=== PATIENT | male | born 1960 | race Caucasian/White ===

== ENCOUNTER 2016-07-03 11:06 | Emergency (ER) | payer BC ==
[2016-07-03] MEDS ORDERED: SODIUM CHLORIDE 0.9% 1,000 ML IV ONE (12:18)
--- NOTE | 2016-07-03 12:23 | ED ---
Abdominal Pain HPI - General Chief Complaint: Abdominal Pain Stated Complaint: RT FLANK PAIN Time Seen by Provider: 07/03/16 12:07 Source: patient, RN notes reviewed Mode of arrival: ambulatory Limitations: no limitations - History of Present Illness Initial Comments: Patient is a 55-year-old male since emergency room for evaluation of right flank pain. Patient states over the past few weeks been feeling increasingly tired. Patient states over the past week he began developing right-sided flank pain. Patient states she went and saw his primary care provider on Tuesday and they performed a urinalysis. Patient states they told him that he did not have a bladder infection. Patient states that he is suppose to leave for a trip tomorrow. Patient states because of the flank pain, he is afraid he has a kidney infection. Patient denies fevers or chills. Patient denies headache or dizziness. Patient denies abdominal pain. Patient denies history of renal failure or kidney infections. Patient does state he's had a history of kidney stone in the past. Patient denies any pain or burning during urination, trouble urinating or blood in urine. Patient denies nausea or vomiting. Patient denies chest pain or shortness of breath. - Related Data Home Medications Medication Instructions Recorded Confirmed Insulin Glargine,Hum.rec.anlog 34 unit SQ HS 09/08/15 07/03/16 [Lantus Solostar] Omeprazole [PriLOSEC] 20 mg PO AC-BRKFST 09/08/15 07/03/16 Pioglitazone [Actos] 30 mg PO QAM 09/08/15 07/03/16 Ibuprofen [Motrin] 800 mg PO DAILY 07/03/16 07/03/16 Liraglutide [Victoza 3-Russ] 1.8 mg SQ DAILY 07/03/16 07/03/16 Metoprolol Tartrate [Lopressor] 100 mg PO AC-BID 07/03/16 07/03/16 Previous Rx's Medication Instructions Recorded Aspirin 325 mg PO DAILY #30 tab 09/28/15 Atorvastatin [Lipitor] 40 mg PO DAILY #30 tab 09/28/15 Clopidogrel [Plavix] 75 mg PO DAILY #30 tab 09/28/15 Diltiazem Cd [Cardizem Cd] 180 mg PO DAILY #30 cap.er.24h 09/28/15 Losartan [Cozaar] 50 mg PO DAILY #30 tab 09/28/15 metFORMIN HCL [Glucophage] 1,000 mg PO AC-BID #30 tab 09/28/15 Allergies Allergy/AdvReac Type Severity Reaction Status Date / Time Poultry [[place]] Allergy Unknown Rash/Hives Verified 07/03/16 12:21 shellfish derived [Shellfish] Allergy Unknown Rash/Hives Verified 07/03/16 12:21 Review of Systems ROS Statement: Those systems with pertinent positive or pertinent negative responses have been documented in the HPI. ROS Other: All systems not noted in ROS Statement are negative. Past Medical History Past Medical History: Diabetes Mellitus, GERD/Reflux, Hyperlipidemia, Hypertension, Osteoarthritis (OA) Additional Past Medical History / Comment(s): SEE CARDIOLOGY H & P. History of Any Multi-Drug Resistant Organisms: None Reported Past Surgical History: Back Surgery, Coronary Bypass/CABG, Heart Catheterization With Stent Additional Past Surgical History / Comment(s): C-6 & C-7 FUSION. , HEART CATH WITH STENT (2006) Past Anesthesia/Blood Transfusion Reactions: No Reported Reaction Date of Last Stent Placement:: 2006 Past Psychological History: No Psychological Hx Reported Smoking Status: Former smoker Past Alcohol Use History: Occasional Additional Past Alcohol Use History / Comment(s): QUIT SMOKING 1996, SMOKED FOR 19 YEARS, 1 1/2 PPD. DRINKS APPROX 3 BEERS PER WEEK. Past Drug Use History: None Reported - Past Family History Mother Family Medical History: No Reported History General Exam - General Exam Comments Initial Comments: sitting exam room, no acute distress. Limitations: no limitations General appearance: alert, in no apparent distress Head exam: Present: atraumatic, normocephalic, normal inspection Eye exam: Present: normal appearance ENT exam: Present: normal exam Neck exam: Present: normal inspection Respiratory exam: Present: normal lung sounds bilaterally. Absent: respiratory distress Cardiovascular Exam: Present: regular rate, normal rhythm, normal heart sounds GI/Abdominal exam: Present: soft, normal bowel sounds. Absent: distended, tenderness, guarding, rebound, rigid Extremities exam: Present: normal inspection Back exam: Present: normal inspection. Absent: CVA tenderness (R), CVA tenderness (L) Neurological exam: Present: alert, oriented X3, CN II-XII intact, normal gait Psychiatric exam: Present: normal affect, normal mood Skin exam: Present: warm, dry, intact, normal color. Absent: rash Course Vital Signs 07/03/16 07/03/16 07/03/16 11:09 12:37 15:48 Temperature 98.2 F 97.2 F L 97.1 F L Pulse Rate 85 82 81 Respiratory 18 16 18 Rate Blood Pressure 188/110 177/92 161/88 O2 Sat by Pulse 98 98 Oximetry Medical Decision Making - Medical Decision Making patient is a 55-year-old male presents emergency room for evaluation of right flank pain. Patient also complaining of occasional fatigue. Laba show no abnormal findings. Cardiac enzymes within normal limits. Computed tomography scan showed no significant findings besides cyst over right kidney. Results discussed with patient. Advised patient to follow up with primary care provider for further evaluation. Patient states he understands everything that was discussed with him. Return parameters discussed. Case discussed with Dr. De La O. - Lab Data Result diagrams: 07/03/16 11:45 07/03/16 11:45 Lab Results 07/03/16 07/03/16 07/03/16 Range/Units 11:45 11:45 11:45 WBC 5.9 (3.8-10.6) k/uL RBC 4.93 (4.30-5.90) m/uL Hgb 14.4 (13.0-17.5) gm/dL Hct 42.9 (39.0-53.0) % MCV 87.1 (80.0-100.0) fL MCH 29.2 (25.0-35.0) pg MCHC 33.5 (31.0-37.0) g/dL RDW 13.7 (11.5-15.5) % Plt Count 247 (150-450) k/uL Neutrophils % 63 % Lymphocytes % 25 % Monocytes % 6 % Eosinophils % 2 % Basophils % 1 % Neutrophils # 3.7 (1.3-7.7) k/uL Lymphocytes # 1.5 (1.0-4.8) k/uL Monocytes # 0.4 (0-1.0) k/uL Eosinophils # 0.1 (0-0.7) k/uL Basophils # 0.1 (0-0.2) k/uL PT (9.0-12.0) sec INR (<1.1) APTT (22.0-30.0) sec Sodium 140 (137-145) mmol/L Potassium 4.6 (3.5-5.1) mmol/L Chloride 104 (98-107) mmol/L Carbon Dioxide 24 (22-30) mmol/L Anion Gap 12 mmol/L BUN 14 (9-20) mg/dL Creatinine 0.68 (0.66-1.25) mg/dL Est GFR (MDRD) Af Amer >60 (>60 ml/min/1.73 sqM) Est GFR (MDRD) Non-Af >60 (>60 ml/min/1.73 sqM) Glucose 124 H (74-99) mg/dL Calcium 9.8 (8.4-10.2) mg/dL Magnesium (1.6-2.3) mg/dL Total Bilirubin 1.3 (0.2-1.3) mg/dL AST 17 (17-59) U/L ALT 24 (21-72) U/L Alkaline Phosphatase 86 (38-126) U/L Total Creatine Kinase (55-170) U/L CK-MB (CK-2) (0.0-2.4) ng/mL CK-MB (CK-2) Rel Index Troponin I (0.000-0.034) ng/mL Total Protein 8.3 H (6.3-8.2) g/dL Albumin 4.5 (3.5-5.0) g/dL Urine Color Light Yellow Urine Appearance Clear (Clear) Urine pH 6.0 (5.0-8.0) Ur Specific [place] 1.004 (1.001-1.035) Urine Protein Negative (Negative) Urine Glucose (UA) Negative (Negative) Urine Ketones Negative (Negative) Urine Blood Negative (Negative) Urine Nitrite Negative (Negative) Urine Bilirubin Negative (Negative) Urine Urobilinogen <2.0 (<2.0) mg/dL Ur Leukocyte Esterase Negative (Negative) 07/03/16 07/03/16 07/03/16 Range/Units 11:45 11:45 14:40 WBC (3.8-10.6) k/uL RBC (4.30-5.90) m/uL Hgb (13.0-17.5) gm/dL Hct (39.0-53.0) % MCV (80.0-100.0) fL MCH (25.0-35.0) pg MCHC (31.0-37.0) g/dL RDW (11.5-15.5) % Plt Count (150-450) k/uL Neutrophils % % Lymphocytes % % Monocytes % % Eosinophils % % Basophils % % Neutrophils # (1.3-7.7) k/uL Lymphocytes # (1.0-4.8) k/uL Monocytes # (0-1.0) k/uL Eosinophils # (0-0.7) k/uL Basophils # (0-0.2) k/uL PT 11.3 (9.0-12.0) sec INR 1.1 (<1.1) APTT 22.6 (22.0-30.0) sec Sodium (137-145) mmol/L Potassium (3.5-5.1) mmol/L Chloride (98-107) mmol/L Carbon Dioxide (22-30) mmol/L Anion Gap mmol/L BUN (9-20) mg/dL Creatinine (0.66-1.25) mg/dL Est GFR (MDRD) Af Amer (>60 ml/min/1.73 sqM) Est GFR (MDRD) Non-Af (>60 ml/min/1.73 sqM) Glucose (74-99) mg/dL Calcium (8.4-10.2) mg/dL Magnesium 1.6 (1.6-2.3) mg/dL Total Bilirubin (0.2-1.3) mg/dL AST (17-59) U/L ALT (21-72) U/L Alkaline Phosphatase (38-126) U/L Total Creatine Kinase 71 (55-170) U/L CK-MB (CK-2) 0.9 (0.0-2.4) ng/mL CK-MB (CK-2) Rel Index 1.3 Troponin I <0.012 (0.000-0.034) ng/mL Total Protein (6.3-8.2) g/dL Albumin (3.5-5.0) g/dL Urine Color Urine Appearance (Clear) Urine pH (5.0-8.0) Ur Specific [place] (1.001-1.035) Urine Protein (Negative) Urine Glucose (UA) (Negative) Urine Ketones (Negative) Urine Blood (Negative) Urine Nitrite (Negative) Urine Bilirubin (Negative) Urine Urobilinogen (<2.0) mg/dL Ur Leukocyte Esterase (Negative) 07/03/16 18:03 ventricular rate 81 bpm, NC interval 174 ms, QRS duration 84 ms, QT/QTC 384/446 seconds - Radiology Data Radiology results: report reviewed, image reviewed Disposition Clinical Impression: Right flank pain Disposition: HOME SELF-CARE Condition: Good Instructions: Flank Pain (ED) Additional Instructions: Take Tylenol or Motrin as needed for pain. Please follow up with primary care provider in 1-2 days. If any new symptom arises or symptoms worsen, return to ER as soon as possible. Referrals: Ko Burton DO [Primary Care Provider] - 1-2 days Time of Disposition: 15:41
[2016-07-03 12:25] LABS: Appearance,Urine Clear (Clear); Bilirubin,Urine Negative (Negative); Glucose,Urine (UA) Negative (Negative); Ketones,Urine Negative (Negative); Leukocyte Esterase,Urine Negative (Negative); Nitrite,Urine Negative (Negative); Protein,Urine Negative (Negative); Specific Gravity,Urine 1.004 (1.001-1.035); UA Billing (MACRO vs. MICRO) CHEM; Urobilinogen,Urine <2.0 mg/dL (<2.0)
[2016-07-03 12:26] LABS: Basophils # (A) 0.1 k/uL (0-0.2); Basophils % (A) 1 %; CH 29.4; CHCM 33.9; Eosinophils # (A) 0.1 k/uL (0-0.7); Eosinophils % (A) 2 %; HCT 42.9 % (39.0-53.0); HDW 2.61; HGB 14.4 gm/dL (13.0-17.5); Luc # (Auto) 0.22; Luc % (Auto) 4; Lymphocytes # (A) 1.5 k/uL (1.0-4.8); Lymphocytes % (A) 25 %; MCH 29.2 pg (25.0-35.0); MCHC 33.5 g/dL (31.0-37.0); MCV 87.1 fL (80.0-100.0); Mean Platelet Volume 6.4; Monocytes # (A) 0.4 k/uL (0-1.0); Monocytes % (A) 6 %; Neutrophils # (A) 3.7 k/uL (1.3-7.7); Neutrophils % (A) 63 %; RBC 4.93 m/uL (4.30-5.90); RDW 13.7 % (11.5-15.5); WBC 5.9 k/uL (3.8-10.6); WBC (Perox) 5.32
[2016-07-03 12:38] LABS: ALT 24 U/L (21-72); AST 17 U/L (17-59); Alkaline Phosphatase 86 U/L (38-126); Anion Gap 12 mmol/L; Blood Urea Nitrogen 14 mg/dL (9-20); Calcium 9.8 mg/dL (8.4-10.2); Carbon Dioxide 24 mmol/L (22-30); Chloride 104 mmol/L (98-107); Glucose 124 mg/dL (74-99); Non-African American GFR(MDRD) >60 (>60 ml/min/1.73 sqM); Potassium 4.6 mmol/L (3.5-5.1); Sodium 140 mmol/L (137-145); Total Bilirubin 1.3 mg/dL (0.2-1.3); Total Protein 8.3 g/dL (6.3-8.2)
--- NOTE | 2016-07-03 12:45 | XR ---
EXAMINATION TYPE: XR chest 2V DATE OF EXAM: 07/03/2016 12:42 PM COMPARISON: 09/27/2015 HISTORY: Chest pain TECHNIQUE: Frontal and lateral views of the chest are obtained. FINDINGS: Heart and mediastinum are normal. There are small linear density in the left midlung. The other lung mireles are clear. There are no hilar masses. There are sternal wires. There are chest lead s. IMPRESSION: Normal heart. Minimal subsegmental atelectasis in the left midlung. Atelectasis is mostl y cleared compared to old exam.
[2016-07-03 14:29] LABS: Creatine Kinase 71 U/L (55-170)
[2016-07-03 14:41] LABS: Creatine Kinase MB 0.9 ng/mL (0.0-2.4); Troponin I <0.012 ng/mL (0.000-0.034)
[2016-07-03 15:00] LABS: INR 1.1 (<1.1); Prothrombin Time 11.3 sec (9.0-12.0)
[2016-07-03 15:07] LABS: Partial Thromboplastin Time 22.6 sec (22.0-30.0)
--- NOTE | 2016-07-03 15:26 | CT ---
EXAMINATION TYPE: CT abdomen pelvis wo con DATE OF EXAM: 07/03/2016 2:58 PM COMPARISON: 05/08/2007 HISTORY: Right side flank pain. CT DLP: 839 mGycm Automated exposure control for dose reduction was used. TECHNIQUE: Helical acquisition of images was performed from the lung bases through the pelvis. FINDINGS: There is mild subsegmental atelectasis in the lingula left upper lobe. There is no pleural effusion. Liver spleen pancreas gallbladder appear normal. Bile ducts are not dilated. There is a 3 cm low dens ity area in the anterior right kidney consistent with cortical cyst. There is a 4 mm calcification at the right renal hilum that is probably vascular. There is no definite hydronephrosis. Ureters are no t dilated. There is no retroperitoneal adenopathy. There is no ascites. Bladder distends smoothly. Th ere are a few diverticula in the colon. There is no evidence of diverticulitis. Appendix appears norm al. Abdominal aorta is atheromatous. I see no bony destructive process. IMPRESSION: ATHEROSCLEROTIC VASCULAR CALCIFICATION. NO EVIDENCE OF RENAL STONE OR OBSTRUCTION. THERE IS A RIGHT R ENAL CORTICAL CYST THAT IS INCREASED COMPARED TO OLD EXAM AND SHOULD BE CONFIRMED BY ULTRASOUND. COLO MIKE DIVERTICULOSIS WITHOUT EVIDENCE OF DIVERTICULITIS.
[2016-07-03 15:49] VITALS: BP 161/88; PULSE 81; RESP 18; TEMP 97.1
== END 2016-07-03 16:00 | disposition home or self-care (01) ==
LOC: EC 11:06
DX: R10.9 Unspecified abdominal pain (principal); R53.83 Other fatigue; I10 Essential (primary) hypertension; E11.9 Type 2 diabetes mellitus without complications; K21.9 Gastro-esophageal reflux disease without esophagitis; M19.90 Unspecified osteoarthritis, unspecified site; Z87.891 Personal history of nicotine dependence; Z79.1 Long term (current) use of non-steroidal anti-inflammatories (NSAID); Z79.4 Long term (current) use of insulin; Z79.84 Long term (current) use of oral hypoglycemic drugs; Z79.899 Other long term (current) drug therapy; Z91.013 Allergy to seafood; Z91.048 Other nonmedicinal substance allergy status
CPT/HCPCS: 36415; 71020; 74176; 80053; 81003; 82550; 82553; 83735; 84484; 85025; 85610; 85730; 93005; 96360; 99284

== ENCOUNTER 2016-11-15 08:41 | Inpatient (IN) | payer BC ==
[2016-11-15] MEDS ORDERED: SODIUM CHLORIDE 0.9% 1,000 ML IV STA ×2 (09:12→11:52)
[2016-11-15] MEDS ORDERED: ACETAMINOPHEN IV (For NPO) 1,000 MG in EMPTY BAG 1 BAG IVPB STA (09:12)
[2016-11-15] MEDS ORDERED: SODIUM CHLORIDE 0.9% 500 ML IV STA (09:12)
--- NOTE | 2016-11-15 09:12 | ED ---
General Adult HPI - General Chief complaint: Weakness Stated complaint: WEAKNESS, FEVER, HEAD INJURY/LAC FROM FALL Time Seen by Provider: 11/15/16 08:52 Source: patient, family, RN notes reviewed, old records reviewed Mode of arrival: wheelchair Limitations: no limitations - History of Present Illness Initial comments: This is a 56-year-old male the ER for evaluation of weakness and falls. Patient has not been feeling well, decreased appetite decreased eating, decreased fluid intake. Patient is noted fever with cough and congestion. But at this time patient's poor historian history is obtained from patient's was also helping - Related Data Home Medications Medication Instructions Recorded Confirmed Insulin Glargine,Hum.rec.anlog 30 unit SQ HS 09/08/15 11/15/16 [Lantus Solostar] Omeprazole [PriLOSEC] 20 mg PO AC-BRKFST 09/08/15 11/15/16 Pioglitazone [Actos] 30 mg PO DAILY 09/08/15 11/15/16 Liraglutide [Victoza 3-Russ] 1.8 mg SQ DAILY 07/03/16 11/15/16 Metoprolol Tartrate [Lopressor] 100 mg PO AC-BID 07/03/16 11/15/16 Losartan Potassium [Cozaar] 100 mg PO DAILY 11/15/16 11/15/16 cloNIDine HCL [Catapres] 0.1 mg PO BID 11/15/16 11/15/16 metFORMIN HCL [Glucophage] 500 mg PO BID 11/15/16 11/15/16 Previous Rx's Medication Instructions Recorded Aspirin 325 mg PO DAILY #30 tab 09/28/15 Atorvastatin [Lipitor] 40 mg PO DAILY #30 tab 09/28/15 Clopidogrel [Plavix] 75 mg PO DAILY #30 tab 09/28/15 Diltiazem Cd [Cardizem Cd] 180 mg PO DAILY #30 cap.er.24h 09/28/15 Allergies Allergy/AdvReac Type Severity Reaction Status Date / Time Poultry [[place]] Allergy Unknown Rash/Hives Verified 11/15/16 09:20 shellfish derived [Shellfish] Allergy Unknown Rash/Hives Verified 11/15/16 09:20 Review of Systems ROS Statement: Those systems with pertinent positive or pertinent negative responses have been documented in the HPI. ROS Other: All systems not noted in ROS Statement are negative. Past Medical History Past Medical History: Diabetes Mellitus, GERD/Reflux, Hyperlipidemia, Hypertension, Osteoarthritis (OA) Additional Past Medical History / Comment(s): SEE CARDIOLOGY H & P. History of Any Multi-Drug Resistant Organisms: None Reported Past Surgical History: Back Surgery, Coronary Bypass/CABG, Heart Catheterization With Stent Additional Past Surgical History / Comment(s): C-6 & C-7 FUSION. , HEART CATH WITH STENT (2006) Past Anesthesia/Blood Transfusion Reactions: No Reported Reaction Date of Last Stent Placement:: 2006 Past Psychological History: No Psychological Hx Reported Smoking Status: Former smoker Past Alcohol Use History: Occasional Past Drug Use History: None Reported - Past Family History Mother Family Medical History: No Reported History General Exam Limitations: altered mental status General appearance: alert, in no apparent distress Head exam: Present: normocephalic, normal inspection. Absent: atraumatic ( Laceration forehead) Eye exam: Present: normal appearance, PERRL, EOMI. Absent: scleral icterus, conjunctival injection, periorbital swelling ENT exam: Present: normal exam, mucous membranes moist Neck exam: Present: normal inspection. Absent: tenderness, meningismus, lymphadenopathy Respiratory exam: Present: normal lung sounds bilaterally. Absent: respiratory distress, wheezes, rales, rhonchi, stridor Cardiovascular Exam: Present: regular rate, normal rhythm, normal heart sounds. Absent: systolic murmur, diastolic murmur, rubs, gallop, clicks GI/Abdominal exam: Present: soft, normal bowel sounds. Absent: distended, tenderness, guarding, rebound, rigid Extremities exam: Present: normal inspection, full ROM, normal capillary refill. Absent: tenderness, pedal edema, joint swelling, calf tenderness Back exam: Present: normal inspection Neurological exam: Present: alert, oriented X3, CN II-XII intact Psychiatric exam: Present: normal affect, normal mood Skin exam: Present: warm, dry, intact, normal color. Absent: rash Course Vital Signs 11/15/16 11/15/16 11/15/16 08:42 09:50 11:43 Temperature 102.2 F H 99.5 F Pulse Rate 111 H 116 H 101 H Respiratory 18 24 20 Rate Blood Pressure 169/83 158/91 138/68 O2 Sat by Pulse 95 94 L 93 L Oximetry - Reevaluation(s) Reevaluation #1: 11/15/16 11:55 Patient is showing although no clinical improvement, his responsive is able to answer questions but is still altered EKG Findings - EKG Comments: EKG Findings:: EKG shows sinus tachycardia rate 113, FL 150, QRS 88, QTC 447 Procedures - Laceration Laceration #1 Consent Obtained: verbal consent Time Out Performed: Yes Indication: laceration Site: face Size (cm): 3 Description: linear Type of Sutures: other Technique: other (dermabond) Medical Decision Making - Medical Decision Making 56 male the ER for evaluation of altered mental state. Patient is found to fever with pneumonia, low sodium. Patient will be admitted for R replacement monitoring of hemodynamic cardiopulmonary status, breathing treatments and IV antibiotics - Lab Data Result diagrams: 11/15/16 09:00 11/15/16 09:00 Lab Results 11/15/16 11/15/16 11/15/16 Range/Units 09:00 09:00 09:00 WBC 12.4 H (3.8-10.6) k/uL RBC 4.40 (4.30-5.90) m/uL Hgb 13.2 (13.0-17.5) gm/dL Hct 39.1 (39.0-53.0) % MCV 88.7 (80.0-100.0) fL MCH 30.0 (25.0-35.0) pg MCHC 33.8 (31.0-37.0) g/dL RDW 14.2 (11.5-15.5) % Plt Count 284 (150-450) k/uL Neutrophils % 91 % Lymphocytes % 3 % Monocytes % 4 % Eosinophils % 0 % Basophils % 0 % Neutrophils # 11.3 H (1.3-7.7) k/uL Lymphocytes # 0.4 L (1.0-4.8) k/uL Monocytes # 0.5 (0-1.0) k/uL Eosinophils # 0.0 (0-0.7) k/uL Basophils # 0.0 (0-0.2) k/uL PT (9.0-12.0) sec INR (<1.2) APTT (22.0-30.0) sec Sodium 120 L* (137-145) mmol/L Potassium 3.9 (3.5-5.1) mmol/L Chloride 85 L (98-107) mmol/L Carbon Dioxide 18 L (22-30) mmol/L Anion Gap 17 mmol/L BUN 19 (9-20) mg/dL Creatinine 0.96 (0.66-1.25) mg/dL Est GFR (MDRD) Af Amer >60 (>60 ml/min/1.73 sqM) Est GFR (MDRD) Non-Af >60 (>60 ml/min/1.73 sqM) Glucose 347 H (74-99) mg/dL Plasma Lactic Acid Carter (0.7-2.0) mmol/L Calcium 8.9 (8.4-10.2) mg/dL Phosphorus 1.9 L (2.5-4.5) mg/dL Magnesium 1.8 (1.6-2.3) mg/dL Total Bilirubin 1.2 (0.2-1.3) mg/dL AST 153 H (17-59) U/L ALT 104 H (21-72) U/L Alkaline Phosphatase 129 H (38-126) U/L Total Creatine Kinase 325 H (55-170) U/L CK-MB (CK-2) 1.6 (0.0-2.4) ng/mL CK-MB (CK-2) Rel Index 0.5 Troponin I 0.180 H* (0.000-0.034) ng/mL Total Protein 6.7 (6.3-8.2) g/dL Albumin 3.5 (3.5-5.0) g/dL TSH 0.473 (0.465-4.680) mIU/L Acetaminophen ug/mL 11/15/16 11/15/16 11/15/16 Range/Units 09:00 09:00 09:00 WBC (3.8-10.6) k/uL RBC (4.30-5.90) m/uL Hgb (13.0-17.5) gm/dL Hct (39.0-53.0) % MCV (80.0-100.0) fL MCH (25.0-35.0) pg MCHC (31.0-37.0) g/dL RDW (11.5-15.5) % Plt Count (150-450) k/uL Neutrophils % % Lymphocytes % % Monocytes % % Eosinophils % % Basophils % % Neutrophils # (1.3-7.7) k/uL Lymphocytes # (1.0-4.8) k/uL Monocytes # (0-1.0) k/uL Eosinophils # (0-0.7) k/uL Basophils # (0-0.2) k/uL PT 10.5 (9.0-12.0) sec INR 1.0 (<1.2) APTT 25.9 (22.0-30.0) sec Sodium (137-145) mmol/L Potassium (3.5-5.1) mmol/L Chloride (98-107) mmol/L Carbon Dioxide (22-30) mmol/L Anion Gap mmol/L BUN (9-20) mg/dL Creatinine (0.66-1.25) mg/dL Est GFR (MDRD) Af Amer (>60 ml/min/1.73 sqM) Est GFR (MDRD) Non-Af (>60 ml/min/1.73 sqM) Glucose (74-99) mg/dL Plasma Lactic Acid Carter 2.1 H* (0.7-2.0) mmol/L Calcium (8.4-10.2) mg/dL Phosphorus (2.5-4.5) mg/dL Magnesium (1.6-2.3) mg/dL Total Bilirubin (0.2-1.3) mg/dL AST (17-59) U/L ALT (21-72) U/L Alkaline Phosphatase (38-126) U/L Total Creatine Kinase (55-170) U/L CK-MB (CK-2) (0.0-2.4) ng/mL CK-MB (CK-2) Rel Index Troponin I (0.000-0.034) ng/mL Total Protein (6.3-8.2) g/dL Albumin (3.5-5.0) g/dL TSH (0.465-4.680) mIU/L Acetaminophen <10.0 ug/mL - Radiology Data Radiology results: report reviewed (Chest x-ray positive for pneumonia, ultrasound gallbladder pending), image reviewed Disposition Clinical Impression: Fever, Hyponatremia, Dehydration, Altered mental state, Community acquired pneumonia Disposition: ADMITTED IP TO THIS [facility] Condition: Serious Referrals: Ko Burton DO [Primary Care Provider] - 1-2 days
[2016-11-15 09:28] LABS: Basophils % (A) 0 %; CH 30.6; CHCM 34.7; Eosinophils % (A) 0 %; HCT 39.1 % (39.0-53.0); HDW 2.31; HGB 13.2 gm/dL (13.0-17.5); Luc # (Auto) 0.14; Luc % (Auto) 1; Lymphocytes # (A) 0.4 k/uL (1.0-4.8); Lymphocytes % (A) 3 %; MCHC 33.8 g/dL (31.0-37.0); MCV 88.7 fL (80.0-100.0); Mean Platelet Volume 7.5; Monocytes # (A) 0.5 k/uL (0-1.0); Monocytes % (A) 4 %; Neutrophils # (A) 11.3 k/uL (1.3-7.7); Neutrophils % (A) 91 %; RDW 14.2 % (11.5-15.5); WBC 12.4 k/uL (3.8-10.6); WBC (Perox) 12.75
[2016-11-15 09:41] LABS: ALT 104 U/L (21-72); AST 153 U/L (17-59); Alkaline Phosphatase 129 U/L (38-126); Anion Gap 17 mmol/L; Blood Urea Nitrogen 19 mg/dL (9-20); Calcium 8.9 mg/dL (8.4-10.2); Carbon Dioxide 18 mmol/L (22-30); Chloride 85 mmol/L (98-107); Glucose 347 mg/dL (74-99); Magnesium 1.8 mg/dL (1.6-2.3); Non-African American GFR(MDRD) >60 (>60 ml/min/1.73 sqM); Phosphorous 1.9 mg/dL (2.5-4.5); Potassium 3.9 mmol/L (3.5-5.1); Total Bilirubin 1.2 mg/dL (0.2-1.3); Total Protein 6.7 g/dL (6.3-8.2)
[2016-11-15 09:46] LABS: Sodium 120 mmol/L (137-145)
--- NOTE | 2016-11-15 09:50 | CT ---
EXAMINATION TYPE: CT brain zaira dorman DATE OF EXAM: 11/15/2016 COMPARISON: NONE HISTORY: 56-year-old male complains of fever and dizziness with fall today. CT DLP: 2332.6 mGycm Automated exposure control for dose reduction was used. Technique: Examination of the head was done in axial plane without intravenous contrast. Coronal and sagittal reconstructions performed. CT of the cervical spine was obtained in axial plane without intravenous injection of contrast mater ial. Coronal and sagittal reformatted images were obtained from the axial views for evaluation of f ractures, spinal alignment and canal. FINDINGS: Head: There is no evidence of acute intracranial hemorrhage, acute ischemic changes, mass, mass-effect, or extra-axial fluid collection. There is no effacement of cerebral sulci or basal subarachnoid cister ns. There is no hydrocephalus. There is no midline shift. [place]obedo-white matter distinction is preserv ed. Mild age-related supratentorial volume loss and mild patchy white matter hypodensities. Paranasal sinuses and mastoid air cells are pneumatized. Orbits and globes are intact. No calvarial f racture. Cervical spine: No craniocervical junction abnormality, predental space widening, or prevertebral soft tissue swellin g. No acute fracture of the cervical spine. Alignment is maintained with postsurgical changes of C6-C7 A CDF. There is some anterior endplate spondylosis above and below the fusion and posterior osteophytic ridg ing at the level of fusion causing a mild spinal canal stenosis. Scattered uncovertebral joint and facet arthropathy causes moderate neuroforaminal narrowing on both sides at C6-C7. Incidentally, a couple borderline sized right superior mediastinal lymph nodes measure 9 mm. Sagittal and coronal reformatted images confirm above findings. COMBINED IMPRESSION: 1. No acute intracranial abnormality seen. Mild age-related atrophy and mild changes of chronic small vessel ischemic disease. 2. No acute fracture or malalignment of the cervical spine. C6-C7 ACDF with moderate spondylotic joyner ge lower cervical spine.
[2016-11-15 09:53] LABS: Partial Thromboplastin Time 25.9 sec (22.0-30.0); Prothrombin Time 10.5 sec (9.0-12.0)
--- NOTE | 2016-11-15 09:53 | XR ---
EXAMINATION TYPE: XR chest 2V DATE OF EXAM: 11/15/2016 COMPARISON: 07/03/2016 HISTORY: 56-year-old male with weakness and fever, fall today TECHNIQUE: Frontal and lateral views FINDINGS: Median sternotomy wires and post-CABG clips. The heart is upper limits of normal in size with mild in terstitial prominence which has a chronic appearance. No focal right lower lung opacity appears to be localized to the lower lobe on the lateral view. No significant pleural effusion seen. Some strandy atelectasis at the left base. IMPRESSION: New opacity suggesting right lower lobe pneumonia. Follow-up after treatment to ensure clearance.
--- NOTE | 2016-11-15 09:54 | XR ---
EXAMINATION TYPE: XR pelvis AP view DATE OF EXAM: 11/15/2016 COMPARISON: NONE HISTORY: 56-year-old male with pain after fall FINDINGS: External rotation of the hips causes some limitation in assessment of the lower femoral necks. Bilate ral CAM deformities at the superior femoral head neck junctions with mild superolateral joint space n arrowing of the hips. Phlebolith in the right hemipelvis. No displaced fracture. Pubic symphysis is i ntact and SI joints appear symmetric. IMPRESSION: 1. No acute osseous abnormality seen. 2. Mild bilateral hip osteoarthrosis.
[2016-11-15 10:10] LABS: Creatine Kinase MB 1.6 ng/mL (0.0-2.4)
[2016-11-15 10:28] LABS: Troponin I 0.18 ng/mL (0.000-0.034)
[2016-11-15] MEDS ORDERED: TOPICAL SKIN ADHESIVE 1 EACH AMP TOPICAL ONE (10:30)
[2016-11-15] MEDS ORDERED: LEVOFLOXACIN 750MG-D5W PMX 750 MG in DEXTROSE/WATER 1 150ML.BAG IVPB STA (11:29)
[2016-11-15] MEDS ORDERED: PNEUMONIA PROTOCOL UTILIZED 1 EACH MISC PO PRN (11:52)
--- NOTE | 2016-11-15 12:27 | US ---
EXAMINATION TYPE: US gallbladder DATE OF EXAM: 11/15/2016 COMPARISON: None CLINICAL HISTORY: 56-year-old male Pain. Nausea x 5 days, NPO TECHNIQUE: Multiple sonographic images of the right upper quadrant are obtained. FINDINGS: Liver Length: 17.7 cm Gallbladder Wall: 0.2 cm CHD: 0.4 cm Right Kidney: 13.4 x 6.7 x 8.1 cm Pancreas: Echogenic, tail not well seen due to overlying bowel gas Liver: Borderline enlarged and slightly echogenic. No focal lesion seen. Gallbladder: No abnormal gallbladder distention, wall thickening, pericholecystic fluid, or shadowin g calculi. Evidence for sonographic Orr's sign: neg CHD: wnl Right Kidney: Two cystic lesions seen. 1- lateral = 1.3 x 1.3 x 1.2 cm. 2- Medial = 2.6 x 2.5 x 2. 6 cm. No hydronephrosis. IMPRESSION: 1. Suspect mild underlying hepatic steatosis. Correlate with LFTs, lipid profile, and patient risk fa ctors. 2. No sonographic evidence for cholelithiasis or acute cholecystitis. 3. No biliary ductal dilatation.
[2016-11-15 14:28] LABS: Appearance,Urine Clear (Clear); Bacteria,Urine Rare /hpf; Bilirubin,Urine Negative (Negative); Glucose,Urine (UA) 4+ (Negative); Leukocyte Esterase,Urine Negative (Negative); Mucus,Urine Rare /hpf; Nitrite,Urine Negative (Negative); Particle Count 2758; Protein,Urine 2+ (Negative); RBC,Urine <1 /hpf (0-5); Specific Gravity,Urine 1.009 (1.001-1.035); Squamous Epithelial Cell,Urine <1 /hpf (0-4); UA Billing (MACRO vs. MICRO) MICRO; Urobilinogen,Urine <2.0 mg/dL (<2.0); WBC,Urine 2 /hpf (0-5)
[2016-11-15 15:02] LABS: Ketones,Urine 2+ (Negative)
[2016-11-15 21:02] LABS: Glucose,Whole Blood 231 mg/dL (75-99)
[2016-11-15] MEDS: INSULIN LISPRO (humaLOG) 300 UNIT/3 ML VIAL SQ SCH (21:20)
[2016-11-15] MEDS: INSULIN GLARGINE 100 UNIT/ML 10 ML VIAL SQ SCH (21:21)
[2016-11-15] MEDS: IPRATROPIUM-ALBUTEROL 3 ML NEB INHALATION PRN (21:21)
[2016-11-15] MEDS: cloNIDine HCL 0.1 MG TAB PO SCH (21:22)
[2016-11-15] MEDS ORDERED: HYDROcodone/APAP 5-325MG 1 EACH TAB PO PRN (21:24)
[2016-11-15] MEDS: MELATONIN 5 MG TABLET PO SCH (23:59)
[2016-11-16] MEDS: SODIUM CHLORIDE 0.9% 1,000 ML IV SCH ×4 (05:23→18:21)
[2016-11-16 06:13] LABS: Glucose,Whole Blood 184 mg/dL (75-99)
[2016-11-16] MEDS: METOPROLOL TARTRATE 50 MG TAB PO SCH ×3 (06:13→17:53)
[2016-11-16] MEDS: cloNIDine HCL 0.1 MG TAB PO SCH ×2 (06:13→20:18)
[2016-11-16] MEDS: PANTOPRAZOLE 40 MG TABLET PO SCH (06:20)
[2016-11-16] MEDS: INSULIN LISPRO (humaLOG) 300 UNIT/3 ML VIAL SQ SCH ×4 (06:21→20:14)
[2016-11-16 07:30] LABS: Basophils % (A) 0 %; CH 30.2; CHCM 33.9; Eosinophils % (A) 0 %; HCT 34.8 % (39.0-53.0); HDW 2.48; HGB 11.5 gm/dL (13.0-17.5); Luc # (Auto) 0.09; Luc % (Auto) 1; Lymphocytes # (A) 0.4 k/uL (1.0-4.8); Lymphocytes % (A) 6 %; MCH 29.7 pg (25.0-35.0); MCHC 33.1 g/dL (31.0-37.0); MCV 89.8 fL (80.0-100.0); Mean Platelet Volume 7.5; Monocytes # (A) 0.4 k/uL (0-1.0); Monocytes % (A) 5 %; Neutrophils # (A) 6.7 k/uL (1.3-7.7); Neutrophils % (A) 88 %; RBC 3.87 m/uL (4.30-5.90); RDW 14.4 % (11.5-15.5); WBC 7.6 k/uL (3.8-10.6); WBC (Perox) 7.71
[2016-11-16] MEDS ORDERED: NON-FORMULARY DRUG (Metoprolol Tartrate [Lopressor] 100 MG) PO SCH (07:30)
[2016-11-16] MEDS: IPRATROPIUM-ALBUTEROL 3 ML NEB INHALATION PRN ×4 (07:38→20:18)
[2016-11-16 07:46] LABS: Anion Gap 13 mmol/L; Blood Urea Nitrogen 11 mg/dL (9-20); Calcium 7.7 mg/dL (8.4-10.2); Carbon Dioxide 16 mmol/L (22-30); Chloride 96 mmol/L (98-107); Glucose 171 mg/dL (74-99); Non-African American GFR(MDRD) >60 (>60 ml/min/1.73 sqM); Potassium 3.2 mmol/L (3.5-5.1); Sodium 125 mmol/L (137-145)
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
[2016-11-16] MEDS: ENOXAPARIN 40 MG/0.4 ML SYRINGE SQ SCH (08:54)
[2016-11-16] MEDS: CLOPIDOGREL 75 MG TAB PO SCH (08:56)
[2016-11-16] MEDS: ATORVASTATIN 40 MG TAB PO SCH (08:56)
[2016-11-16] MEDS: DILTIAZEM CD 180 MG CAP.ER.24H PO SCH (08:56)
[2016-11-16] MEDS: metFORMIN 500 MG TAB PO SCH ×2 (08:57→20:18)
[2016-11-16] MEDS: LOSARTAN 50 MG TAB PO SCH (08:57)
[2016-11-16] MEDS: PIOGLITAZONE 30 MG TAB PO SCH (08:58)
[2016-11-16] MEDS ORDERED: NON-FORMULARY DRUG (Liraglutide [Victoza 3-Pak] 1.8 MG) SQ SCH (09:00)
--- NOTE | 2016-11-16 09:50 | XR ---
EXAMINATION TYPE: XR chest 2V DATE OF EXAM: 11/16/2016 COMPARISON: Chest x-ray from yesterday HISTORY: Dizziness and pneumonia progress study. TECHNIQUE: Frontal and lateral views of the chest are obtained. FINDINGS: Post CABG changes with mediastinal clips and sternal wires is redemonstrated. There is pers istent right basilar opacity consistent with small effusion and associated basilar atelectasis and/or infiltrate. There is patchy left basilar atelectasis and/or infiltrate. Upper lungs remain clear wi thout pneumothorax. The cardiac silhouette size is upper limits of normal currently. Anterior fusion plate lower cervical spine is noted. IMPRESSION: Persistent small right pleural effusion and associated right basilar infiltrate and/or a telectasis. More patchy left basilar atelectasis and/or infiltrate is also redemonstrated.
[2016-11-16] MEDS ORDERED: LEVOFLOXACIN 750MG-D5W PMX 750 MG in DEXTROSE/WATER 1 150ML.BAG IVPB SCH (11:00)
[2016-11-16 12:21] LABS: Glucose,Whole Blood 209 mg/dL (75-99)
[2016-11-16 12:50] LABS: ABG PH 7.51 (7.35-7.45)
[2016-11-16 12:51] LABS: ABG Base Excess -7.8 mmol/L; ABG HCO3 15 mmol/L (21-25); ABG PCO2 19 mmHg (35-45); ABG PO2 57 mmHg (83-108); ABG TCO2 15 mmol/L (19-24)
--- NOTE | 2016-11-16 13:39 | P.CNPUL ---
History of Present Illness Consult date: 11/16/16 Requesting physician: Jose Sandhu Reason for consult: dyspnea, cough, pneumonia, abnormal CXR/CT Chief complaint: Shortness of breath, fever, weakness History of present illness: This is a pleasant 56-year-old white male with history of multiple medical problems including coronary artery disease, diabetes mellitus II, GERD, hyperlipidemia, hypertension, osteoarthritis with 1 week history of high fevers , shortness of breath, cough, decreased appetite and weakness. The patient was treated by his PCP with oral amoxicillin with no improvement in his symptoms. Patient was becoming progressively weak, with continued chest congestion and fever, started experiencing falls at home. At which time he was brought in by his to the emergency department for evaluation and was subsequently admitted. Patient was initially given Levaquin which was later switched to Rocephin. Chest x-ray from 11/16/2016 show persistence right basilar infiltrate with right pleural effusion and patchy left basilar atelectasis and/ or infiltrate. On 11/15/2016 plasma lactic acid was elevated at 2.1 for which patient received 3 L of normal saline in fluid boluses. Blood cultures showed no growth after 24 hours, sputum culture was contaminated with oral paulina. Today we are asked to see the patient in consult in regards to his worsening respiratory status, tachypnea, fever of 103F and possible sepsis. Patient seen sitting up in bed, dyspneic with normal conversation, tachypneic at 28 breaths per minute, oxygen saturations of 90% on 4 L per nasal cannula. Lung sounds are coarse inspiratory crackles over left lower lobe, diminished air entry. Febrile, appears acutely ill. is at the bedside, provided much the history as the patient has difficulty speaking in full sentences. Blood gases were obtained and reviewed, pH is 7.5, pCO2 is 18.7, pO2 is 57 on 4 L of oxygen. Patient has primary respiratory alkalosis, hypoxic respiratory failure secondary to right lower lobe pneumonia. Patient will placed on 100% nonrebreather, antibiotic coverage will be switched to Zosyn, and patient will be transferred to the intensive care for further management. Blood and sputum cultures will be obtained. Will obtain CT of chest without contrast to rule out the possibility of right lower lobe empyema. Review of Systems Constitutional: Reports anorexia, Reports chills, Reports fatigue, Reports fever , Reports malaise, Reports poor appetite, Reports weakness Eyes: denies blurred vision Ears: deny: decreased hearing Ears, nose, mouth and throat: Denies headache, Denies sore throat Cardiovascular: Denies chest pain, Denies shortness of breath Respiratory: Reports congestion, Reports cough with sputum, Reports dyspnea Gastrointestinal: Denies abdominal pain, Denies diarrhea, Denies nausea, Denies vomiting Musculoskeletal: Reports frequent falls, Reports gait dysfunction, Reports muscle weakness, Denies myalgias Integumentary: Denies pruritus, Denies rash Neurological: Reports gait dysfunction, Denies numbness, Denies weakness Psychiatric: Denies anxiety, Denies depression Endocrine: Denies fatigue, Denies weight change Past Medical History Past Medical History: Coronary Artery Disease (CAD), Chest Pain / Angina, Diabetes Mellitus, GERD/Reflux, Hyperlipidemia, Hypertension, Osteoarthritis (OA ) Additional Past Medical History / Comment(s): IDDM type II History of Any Multi-Drug Resistant Organisms: None Reported Past Surgical History: Coronary Bypass/CABG, Heart Catheterization With Stent Additional Past Surgical History / Comment(s): C-6 & C-7 FUSION. , HEART CATH WITH STENTS IN RCA AND LEFT CX (2006), 08/2015 CARDIAC CATH, 09/2015 CABG-4 VESSEL , egd/colonoscopy, LYMPH NODE REMOVED FROM NECK. Past Anesthesia/Blood Transfusion Reactions: No Reported Reaction Date of Last Stent Placement:: 2006 Smoking Status: Former smoker - Past Family History Mother Family Medical History: Diabetes Mellitus Additional Family Medical History / Comment(s): MOTHER LIVED TO BE 82 YRS OLD. Father Family Medical History: CVA/TIA Additional Family Medical History / Comment(s): FATHER HAD CVA X2. HE IN A MVA. Medications and Allergies Home Medications Medication Instructions Recorded Confirmed Type Insulin Glargine,Hum.rec.anlog 30 unit SQ HS 09/08/15 11/15/16 History [Lantus Solostar] Omeprazole [PriLOSEC] 20 mg PO AC-BRKFST 09/08/15 11/15/16 History Pioglitazone [Actos] 30 mg PO DAILY 09/08/15 11/15/16 History Aspirin 325 mg PO DAILY #30 tab 09/28/15 11/15/16 Rx Atorvastatin [Lipitor] 40 mg PO DAILY #30 tab 09/28/15 11/15/16 Rx Clopidogrel [Plavix] 75 mg PO DAILY #30 tab 09/28/15 11/15/16 Rx Diltiazem Cd [Cardizem Cd] 180 mg PO DAILY #30 cap.er.24h 09/28/15 11/15/16 Rx Liraglutide [Victoza 3-Russ] 1.8 mg SQ DAILY 07/03/16 11/15/16 History Metoprolol Tartrate [Lopressor] 100 mg PO AC-BID 07/03/16 11/15/16 History Losartan Potassium [Cozaar] 100 mg PO DAILY 11/15/16 11/15/16 History cloNIDine HCL [Catapres] 0.1 mg PO BID 11/15/16 11/15/16 History metFORMIN HCL [Glucophage] 500 mg PO BID 11/15/16 11/15/16 History Allergies Allergy/AdvReac Type Severity Reaction Status Date / Time Poultry [[place]] Allergy Unknown Rash/Hives Verified 11/15/16 09:20 shellfish derived [Shellfish] Allergy Unknown Rash/Hives Verified 11/15/16 09:20 Physical Exam Vitals: Vital Signs Temp Pulse Pulse Pulse Resp BP BP 11/16/16 12:40 100.3 F H 32 H 11/16/16 12:00 98.9 F 120 H 110 H 28 H 156/88 11/16/16 11:11 115 H 11/16/16 10:59 111 H 11/16/16 08:00 99.3 F 110 H 112 H 24 11/16/16 07:50 112 H 11/16/16 07:41 110 H 11/16/16 04:00 98.0 F 109 H 18 11/16/16 00:00 97.2 F L 116 H 22 164/88 11/15/16 21:32 116 H 11/15/16 21:22 118 H 11/15/16 20:00 98.6 F 70 18 204/93 11/15/16 16:54 97.9 F 108 H 24 11/15/16 15:11 99.3 F 108 H 20 145/77 11/15/16 13:54 99 18 128/73 BP Pulse Ox 11/16/16 12:40 88 L 11/16/16 12:00 88 L 11/16/16 11:11 11/16/16 10:59 11/16/16 08:00 143/80 92 L 11/16/16 07:50 11/16/16 07:41 91 L 11/16/16 04:00 161/100 92 L 11/16/16 00:00 94 L 11/15/16 21:32 11/15/16 21:22 94 L 11/15/16 20:00 200/106 88 L 11/15/16 16:54 169/89 96 11/15/16 15:11 96 11/15/16 13:54 96 Intake and Output 11/15/16 11/16/16 11/16/16 22:59 06:59 14:59 Intake Total 024 390 3000 Output Total 600 Balance 800 -100 2270 Intake: IV 800 400 800 Sodium Chloride 0.9% 1, 800 400 800 000 ml @ 100 mls/hr IV . Q10H [facility] Rx#:[id number] Intake, IV Titration 100 Amount Levofloxacin 750Mg-D5w 100 Pmx 750 mg In Dextrose/ Water 1 150ml.bag @ 100 mls/hr IVPB ONCE STA Rx#: [id number] Oral 1470 Output: Urine 600 Other: Voiding Method Urinal Urinal # Voids 1 Weight 98.7 kg - Constitutional General appearance: average body habitus, cooperative, mild distress - EENT Eyes: anicteric sclerae, EOMI, PERRLA, dentition normal ENT: NA/AT Ears: bilateral: normal - Neck Neck: no lymphadenopathy, normal ROM Carotids: bilateral: upstroke normal Thyroid: bilateral: normal size - Respiratory Respiratory: bilateral: diminished, rales (left lower lobe) - Cardiovascular Rhythm: regular Heart sounds: normal: S1, S2 radial pulse Peripheral Pulses: bilateral: Normal dorsalis pedis Peripheral Pulses: bilateral: Normal - Gastrointestinal General gastrointestinal: no organomegaly, soft, no tenderness - Integumentary Integumentary: flushed, normal turgor - Neurologic Neurologic: CNII-XII intact - Musculoskeletal Musculoskeletal: generalized weakness - Psychiatric Psychiatric: A&O x's 3, appropriate affect, intact judgment & insight Results - Laboratory Findings CBC and BMP: 11/16/16 06:25 11/16/16 06:25 ABG ABG pH 7.51 (7.35-7.45) H 11/16/16 12:40 ABG pCO2 19 mmHg (35-45) L* 11/16/16 12:40 ABG pO2 57 mmHg (83-108) L 11/16/16 12:40 ABG O2 Saturation 93.0 % (94-97) L 11/16/16 12:40 PT/INR, D-dimer PT 10.5 sec (9.0-12.0) 11/15/16 09:00 INR 1.0 (<1.2) 11/15/16 09:00 Abnormal lab findings: Abnormal Labs 11/15/16 11/15/16 11/15/16 09:00 09:00 09:00 WBC 12.4 H RBC Hgb Hct Neutrophils # 11.3 H Lymphocytes # 0.4 L ABG pH ABG pCO2 ABG pO2 ABG HCO3 ABG Total CO2 ABG O2 Saturation Sodium 120 L* Potassium Chloride 85 L Carbon Dioxide 18 L Glucose 347 H POC Glucose (mg/dL) Osmolality Plasma Lactic Acid Carter Calcium Phosphorus 1.9 L AST 153 H ALT 104 H Alkaline Phosphatase 129 H Total Creatine Kinase 325 H Troponin I 0.180 H* Urine Protein Urine Glucose (UA) Urine Ketones Urine Blood Urine Bacteria Hyaline Casts Urine Mucus 11/15/16 11/15/16 11/15/16 09:00 13:45 20:50 WBC RBC Hgb Hct Neutrophils # Lymphocytes # ABG pH ABG pCO2 ABG pO2 ABG HCO3 ABG Total CO2 ABG O2 Saturation Sodium Potassium Chloride Carbon Dioxide Glucose POC Glucose (mg/dL) 231 H Osmolality Plasma Lactic Acid Carter 2.1 H* Calcium Phosphorus AST ALT Alkaline Phosphatase Total Creatine Kinase Troponin I Urine Protein 2+ H Urine Glucose (UA) 4+ H Urine Ketones 2+ H Urine Blood Small H Urine Bacteria Rare H Hyaline Casts 4 H Urine Mucus Rare H 11/16/16 11/16/16 11/16/16 06:11 06:25 06:25 WBC RBC 3.87 L Hgb 11.5 L Hct 34.8 L Neutrophils # Lymphocytes # 0.4 L ABG pH ABG pCO2 ABG pO2 ABG HCO3 ABG Total CO2 ABG O2 Saturation Sodium 125 L Potassium 3.2 L Chloride 96 L Carbon Dioxide 16 L Glucose 171 H POC Glucose (mg/dL) 184 H Osmolality 259 L Plasma Lactic Acid Carter Calcium 7.7 L Phosphorus AST ALT Alkaline Phosphatase Total Creatine Kinase Troponin I Urine Protein Urine Glucose (UA) Urine Ketones Urine Blood Urine Bacteria Hyaline Casts Urine Mucus 11/16/16 11/16/16 11:45 12:40 WBC RBC Hgb Hct Neutrophils # Lymphocytes # ABG pH 7.51 H ABG pCO2 19 L* ABG pO2 57 L ABG HCO3 15 L ABG Total CO2 15 L ABG O2 Saturation 93.0 L Sodium Potassium Chloride Carbon Dioxide Glucose POC Glucose (mg/dL) 209 H Osmolality Plasma Lactic Acid Carter Calcium Phosphorus AST ALT Alkaline Phosphatase Total Creatine Kinase Troponin I Urine Protein Urine Glucose (UA) Urine Ketones Urine Blood Urine Bacteria Hyaline Casts Urine Mucus - Diagnostic Findings Chest x-ray: report reviewed Assessment and Plan Plan: Assessment: #1. Right lower lobe pneumonia. #2. Sepsis due to pneumonia, fever, lactic acidosis present on admission #3. Acute hypoxic respiratory failure secondary to pneumonia #4. Rule out right lower lobe empyema #5. Hyponatremia, hypoosmolar from excessive fluid intake. #6. Severe generalized weakness, gait dysfunction and falls #7. Troponin leak likely from septic etiology #8. Diabetes mellitus type 2 #9. CAD, history of coronary artery bypass grafting #10. Hyperlipidemia #11. Essential hypertension #12. Osteoarthritis Plan: Patient will be transferred to the intensive care. Repeat blood cultures and sputum cultures will be obtained. Antibiotic coverage will be switched to Zosyn. We'll obtain CT of the chest without contrast to rule out right lung empyema. Continue DuoNeb nebulizer treatments. Monitor for signs of septic shock. Initiate the sepsis bundle. Monitor serum sodium, monitor neurologic status for signs of seizures or alteration. We'll continue to closely follow. I performed a history & physical examination of the patient and discussed their management with my nurse practitioner, Charlene Portillo. I reviewed the nurse practitioner's note and agree with the documented findings and plan of care.
[2016-11-16] MEDS ORDERED: Potassium Replacement Protocol 1 EACH MISC MISCELLANE PRN (13:48)
[2016-11-16] MEDS: ACETAMINOPHEN TAB 325 MG TAB PO PRN (13:56)
[2016-11-16 14:26] LABS: Glucose,Whole Blood 312 mg/dL (75-99)
[2016-11-16] MEDS: POTASSIUM CHLORIDE 10 MEQ, LIDOCAINE 2% INJ 10 MG in SODIUM CHLORIDE 0.9% 100 ML IV SCH ×2 (14:47→17:53)
[2016-11-16] MEDS: PIPERACILLIN-TAZOBACTAM 3.375 GM in DEXTROSE/WATER 1 50ML.BAG IVPB SCH ×2 (14:47→23:50)
--- NOTE | 2016-11-16 14:56 | P.PN ---
Progress Note - Text DATE OF SERVICE: 11/16/2016 PRESENTING COMPLAINT: Weak and tired HISTORY OF PRESENT ILLNESS: 56-year-old male presented with fever chills nausea and not much of an appetite for the previous 5 days. Diagnostic imaging revealed an infiltrate. Admitted for pneumonia. INTERVAL HISTORY: 11/16/2016: Patient lying in bed appears uncomfortable, receiving a breathing treatment being transferred to the ICU. Antibiotics continue in the form of Zosyn , chest x-ray with no improvement. Chest CT pending to rule out lung empyema. Appetite poor, last BM prior to admission currently on bedrest. REVIEW OF SYSTEMS: Done for constitutional ,cardiovascular, GI, pulmonary with relevant findings as above. CURRENT MEDICATIONS [place], DuoNeb, Lipitor, Catapres, Plavix, Cardizem, Lovenox, Lantus 30 units subcu at at bedtime, Cozaar, Glucophage, Lopressor, Protonix. PHYSICAL EXAM VITAL SIGNS: Temperature 99.3, pulse 112, respiratory rate 24, blood pressure 143/80, oxygen saturation 92% on 4 L. GENERAL APPEARANCE: Lying in bed, in distress receiving a breathing treatment. EYES: Pupils equal. Conjunctiva normal. NECK: JVD not raised. Mass not palpable. RESPIRATORY: Respiratory effort increased. Bilateral diffuse crackles to auscultation. CARDIOVASCULAR: First and second sounds normal. No edema. ABDOMEN: Soft. Liver and spleen not palpable. No tenderness. No mass palpable. PSYCHIATRY: Alert and oriented x3. Mood and affect anxious INVESTIGATIONS: Labs: White blood cell count 7.6, hemoglobin 11.5, sodium 125, potassium 3.2, BUN 11, creatinine 0.74, Accu-Cheks noted. Arterial blood gas: 7.51/19/57/15/base excess -7.8 Chest x-ray: Persistent small right pleural effusion associated right basilar infiltrate. ASSESSMENT: -Acute hypoxic respiratory failure secondary to pneumonia. -Right lower lobe pneumonia suspect gram-negative causing severe sepsis, present on admission including lactic acidosis. -Hyponatremia likely hypoosmolar from excessive fluid intake. Patient's solid intake is gone down. -Troponin leak probably from hemodynamic mismatch from sepsis not acute myocardial infarction. -Coronary artery repair history of stent and coronary artery bypass grafting. 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 -Gastroesophageal reflux disease. -Hyperlipidemia. -Essential hypertension. -Primary osteoarthritis in multiple joints bilateral. PLAN: Transfer to the ICU, continue antibiotic therapy, await results of CT of the chest, serial chest x-rays. Sepsis bundle initiated. Plan of care discussed with patient the bedside in agreement. We'll continue to monitor closely. RESERVATION CLERK statement: Patient was seen and examined by nurse practitioner Lindsey Arias and all elements of the case discussed with attending Dr. Sandhu
[2016-11-16 15:53] VITALS: BMI 29.5
--- NOTE | 2016-11-16 15:56 | CT ---
EXAMINATION TYPE: CT chest wo con DATE OF EXAM: 11/16/2016 COMPARISON: Chest x-ray earlier today HISTORY: Severe Shortness of breath, rule out empyema. CT DLP: 532.5 mGycm. Automated Exposure Control for Dose Reduction was Utilized. TECHNIQUE: CT scan of the thorax is performed without IV contrast. FINDINGS: LUNGS: Exam is suboptimal as is degraded by significant respiratory motion artifact. There is tiny le ft-sided pleural effusion or fluid collection. There is associated left basilar atelectasis and/or Li mited consolidation. There is more prominent consolidation with air bronchograms involving majority o f right lower lobe. There is sparing of right middle lobe and upper lobes. No pneumothorax is seen bi laterally. Tracheobronchial tree is patent. No significant right-sided pleural effusion or fluid yan ection is noted. MEDIASTINUM: Lack of IV contrast is noted to limit evaluation for mediastinal and especially hilar a denopathy. There are no definitive greater than 1 cm hilar or mediastinal lymph nodes. Some prominen t but subcentimeter thoracic lymph nodes are seen. No significant pericardial effusion is seen. Post CABG changes with mediastinal clips and sternal wires is present. Heart size is mildly enlarged. OTHER: There is moderate perinephric fat stranding bilaterally, nonspecific finding, and more promine nt from CT abdomen July 03, 2016. Correlate for acute renal failure. There is redemonstration stable 2 .5 cm cystic lesion upper pole level right kidney favoring simple cyst. IMPRESSION: Prominent right lower lobe consolidation with air bronchograms suggesting bronchopneumoni a. No suspicious pleural fluid collection or empyema.
[2016-11-16] MEDS ORDERED: PIPERACILLIN-TAZOBACTAM 3.375 GM in DEXTROSE/WATER 1 50ML.BAG IVPB SCH ×2 (16:00→22:00)
[2016-11-16] MEDS ORDERED: IV VANCOMYCIN PER PHARMACY 1 EACH MISC MISCELLANE PRN (16:15)
[2016-11-16 16:36] LABS: Glucose,Whole Blood 204 mg/dL (75-99)
[2016-11-16] MEDS ORDERED: VANCOMYCIN 1,750 MG in SODIUM CHLORIDE 0.9% 250 ML IVPB ONE (17:00)
[2016-11-16 17:54] LABS: Glucose,Whole Blood 224 mg/dL (75-99)
[2016-11-16 20:14] LABS: Glucose,Whole Blood 235 mg/dL (75-99)
[2016-11-16] MEDS: INSULIN GLARGINE 100 UNIT/ML 10 ML VIAL SQ SCH (20:14)
[2016-11-16 21:33] LABS: Magnesium 2.1 mg/dL (1.6-2.3); Potassium 3.1 mmol/L (3.5-5.1)
[2016-11-16 21:49] LABS: Amorphous Sediment,Urine Rare /hpf; Appearance,Urine Turbid (Clear); Bilirubin,Urine 1+ (Negative); Glucose,Urine (UA) 3+ (Negative); Ketones,Urine 1+ (Negative); Leukocyte Esterase,Urine Trace (Negative); Mucus,Urine Rare /hpf; Nitrite,Urine Negative (Negative); Particle Count 48254; Protein,Urine 2+ (Negative); RBC,Urine 107 /hpf (0-5); Specific Gravity,Urine 1.018 (1.001-1.035); Squamous Epithelial Cell,Urine 1 /hpf (0-4); UA Billing (MACRO vs. MICRO) MICRO; WBC,Urine 23 /hpf (0-5)
[2016-11-16] MEDS: POTASSIUM CHLORIDE ER 20 MEQ TAB.ER PO SCH ×2 (22:23→23:37)
[2016-11-16] MEDS: VANCOMYCIN 1,500 MG in SODIUM CHLORIDE 0.9% 250 ML IVPB SCH (23:46)
[2016-11-17] MEDS: MELATONIN 5 MG TABLET PO SCH ×2 (00:27→22:18)
--- NOTE | 2016-11-17 02:36 | PN ---
PROGRESS NOTE DATE OF SERVICE: November 16, 2016 ATTENDING NOTE: This patient seen and examined by me. I discussed with my nurse practitioner, Ms. Arias. I saw this patient this morning. Compared to last night the patient is much more short of breath. Oxygen requirement had gone up. Temperature 100.3, respiration 32, heart rate 110's. Patient was put on a non-rebreather. EXAMINATION: Breath sounds on examination, decreased breath sounds, abrasive. Respiratory rate increased. Accessory muscles are working. ASSESSMENT: Acute hypoxic respiratory failure, worsening from underlying pneumonia that is worsening. Spoke to Dr. Quezada from Pulmonary and patient will be transferred to the ICU. Discussed change of antibiotics with Dr. Quezada. He will be put on IV Zosyn and vancomycin. MMODL / IJN: [id number] /
[2016-11-17] MEDS: ACETAMINOPHEN TAB 325 MG TAB PO PRN (04:19)
[2016-11-17 04:57] LABS: Basophils % (A) 0 %; CH 29.4; CHCM 33.2; Eosinophils % (A) 0 %; HCT 33.8 % (39.0-53.0); HDW 2.59; HGB 11.3 gm/dL (13.0-17.5); Luc # (Auto) 0.14; Luc % (Auto) 2; Lymphocytes # (A) 0.6 k/uL (1.0-4.8); Lymphocytes % (A) 11 %; MCH 29.7 pg (25.0-35.0); MCHC 33.5 g/dL (31.0-37.0); MCV 88.8 fL (80.0-100.0); Monocytes # (A) 0.3 k/uL (0-1.0); Monocytes % (A) 5 %; Neutrophils # (A) 4.7 k/uL (1.3-7.7); Neutrophils % (A) 81 %; RBC 3.81 m/uL (4.30-5.90); RDW 14.1 % (11.5-15.5); WBC 5.8 k/uL (3.8-10.6); WBC (Perox) 6.14
[2016-11-17 05:07] LABS: Anion Gap 11 mmol/L; Blood Urea Nitrogen 12 mg/dL (9-20); Calcium 7.7 mg/dL (8.4-10.2); Carbon Dioxide 18 mmol/L (22-30); Chloride 98 mmol/L (98-107); Glucose 175 mg/dL (74-99); Magnesium 1.9 mg/dL (1.6-2.3); Non-African American GFR(MDRD) >60 (>60 ml/min/1.73 sqM); Phosphorous 1.5 mg/dL (2.5-4.5); Potassium 3.4 mmol/L (3.5-5.1); Sodium 127 mmol/L (137-145)
[2016-11-17] MEDS: VANCOMYCIN 1,500 MG in SODIUM CHLORIDE 0.9% 250 ML IVPB SCH ×3 (06:10→22:59)
[2016-11-17] MEDS: SODIUM CHLORIDE 0.9% 1,000 ML IV SCH ×2 (06:13→13:40)
[2016-11-17] MEDS: POTASSIUM CHLORIDE ER 20 MEQ TAB.ER PO SCH ×4 (06:28→22:18)
[2016-11-17] MEDS: MAGNESIUM SULFATE-D5W PMX 1 GM in DEXTROSE/WATER 1 100ML.BAG IVPB SCH ×2 (06:28→07:53)
[2016-11-17] MEDS: SODIUM PHOSPHATE 10 MMOL in SODIUM CHLORIDE 0.9% 250 ML IVPB SCH ×2 (07:08→08:12)
[2016-11-17] MEDS: INSULIN LISPRO (humaLOG) 300 UNIT/3 ML VIAL SQ SCH ×4 (07:47→22:27)
[2016-11-17 07:49] LABS: Glucose,Whole Blood 147 mg/dL (75-99)
[2016-11-17] MEDS: ENOXAPARIN 40 MG/0.4 ML SYRINGE SQ SCH (08:05)
[2016-11-17] MEDS: CLOPIDOGREL 75 MG TAB PO SCH (08:05)
[2016-11-17] MEDS: METOPROLOL TARTRATE 50 MG TAB PO SCH ×2 (08:05→16:38)
[2016-11-17] MEDS: PANTOPRAZOLE 40 MG TABLET PO SCH (08:05)
[2016-11-17] MEDS: ATORVASTATIN 40 MG TAB PO SCH (08:05)
[2016-11-17] MEDS: LOSARTAN 50 MG TAB PO SCH (08:06)
[2016-11-17] MEDS: DILTIAZEM CD 180 MG CAP.ER.24H PO SCH (08:06)
[2016-11-17] MEDS: cloNIDine HCL 0.1 MG TAB PO SCH ×2 (08:06→19:54)
[2016-11-17] MEDS: metFORMIN 500 MG TAB PO SCH ×2 (08:06→19:54)
--- NOTE | 2016-11-17 08:13 | XR ---
EXAMINATION TYPE: XR chest 1V portable DATE OF EXAM: 11/17/2016 HISTORY: Shortness of breath. COMPARISON: 11/16/2016 TECHNIQUE: Single view of the chest is submitted. FINDINGS: Demonstrated are scattered senescent parenchymal change. Patchy density right medial lung base is essentially unchanged. The heart is stable. Hilar and mediastinal structures are within normal limits. Degenerative changes are seen of the dorsal spine. IMPRESSION: 1. Patchy density right medial lung base is essentially unchanged.
[2016-11-17] MEDS: PIPERACILLIN-TAZOBACTAM 3.375 GM in DEXTROSE/WATER 1 50ML.BAG IVPB SCH ×2 (08:15→15:28)
[2016-11-17] MEDS: PIOGLITAZONE 30 MG TAB PO SCH (10:30)
[2016-11-17 11:24] LABS: Glucose,Whole Blood 190 mg/dL (75-99)
--- NOTE | 2016-11-17 13:42 | P.PN ---
Subjective Principal diagnosis: Acute community-acquired the right lower lobe pneumonia and sepsis This is a pleasant 56-year-old white male with history of multiple medical problems including coronary artery disease, diabetes mellitus II, GERD, hyperlipidemia, hypertension, osteoarthritis with 1 week history of high fevers , shortness of breath, cough, decreased appetite and weakness. The patient was treated by his PCP with oral amoxicillin with no improvement in his symptoms. Patient was becoming progressively weak, with continued chest congestion and fever, started experiencing falls at home. At which time he was brought in by his to the emergency department for evaluation and was subsequently admitted. Patient was initially given Levaquin which was later switched to Rocephin. Chest x-ray from 11/16/2016 show persistence right basilar infiltrate with right pleural effusion and patchy left basilar atelectasis and/ or infiltrate. On 11/15/2016 plasma lactic acid was elevated at 2.1 for which patient received 3 L of normal saline in fluid boluses. Blood cultures showed no growth after 24 hours, sputum culture was contaminated with oral paulina. Today we are asked to see the patient in consult in regards to his worsening respiratory status, tachypnea, fever of 103F and possible sepsis. Patient seen sitting up in bed, dyspneic with normal conversation, tachypneic at 28 breaths per minute, oxygen saturations of 90% on 4 L per nasal cannula. Lung sounds are coarse inspiratory crackles over left lower lobe, diminished air entry. Febrile, appears acutely ill. is at the bedside, provided much the history as the patient has difficulty speaking in full sentences. Blood gases were obtained and reviewed, pH is 7.5, pCO2 is 18.7, pO2 is 57 on 4 L of oxygen. Patient has primary respiratory alkalosis, hypoxic respiratory failure secondary to right lower lobe pneumonia. Patient will placed on 100% nonrebreather, antibiotic coverage will be switched to Zosyn, and patient will be transferred to the intensive care for further management. Blood and sputum cultures will be obtained. Will obtain CT of chest without contrast to rule out the possibility of right lower lobe empyema. Reevaluated today on 11/17/2016, patient seems to be doing significantly better compared to how he was yesterday. Less shortness of breath, no fever, no chills , no wheezing. CT of the chest failed to show any empyema, however there was a significant consolidation and air bronchogram noted in the right lower lobe consistent with pneumonia. Labs today were all reviewed he has WBC count of 5.8 hemoglobin is 11.3. Sodium is 127 potassium of 3.4 being corrected as per protocol. Cultures so far are nondiagnostic, and negative including blood and urine and sputum. Clinically however there has been a dramatic improvement noted. Patient seems to be comfortable, he is presently on 3 L nasal cannula. Objective - Vital Signs Vital signs: Vital Signs Temp 98.1 F 11/17/16 08:00 Pulse 93 11/17/16 11:00 Resp 30 H 11/17/16 11:08 BP 168/91 11/17/16 11:00 Pulse Ox 99 11/17/16 11:00 Intake & Output 11/16/16 11/17/16 11/17/16 18:59 06:59 18:59 Intake Total 2920 1350 1525.0 Output Total 1999 1435 1225 Balance 920 -85 300.0 Weight 98.7 kg 98.7 kg Intake: IV 1000 450 150.0 Piperacillin-Tazobactam 3 50.0 .375 gm In Dextrose/Water 1 50ml.bag @ 12.5 mls/hr IVPB Q8HR [facility] Rx#: [id number] Sodium Chloride 0.9% 1, 1000 450 100 000 ml @ 100 mls/hr IV . Q10H [facility] Rx#:[id number] Intake, IV Titration 900 375.0 Amount Magnesium Sulfate-D5w Pmx 100 100 1 gm In Dextrose/Water 1 100ml.bag @ 100 mls/hr IVPB Q1H [facility] Rx#: [id number] Piperacillin-Tazobactam 3 50 25.0 .375 gm In Dextrose/Water 1 50ml.bag @ 12.5 mls/hr IVPB Q8HR [facility] Rx#: [id number] Sodium Phosphate 10 mmol 250 250 In Sodium Chloride 0.9% 250 ml @ 125 mls/hr IVPB Q2H [facility] Rx#:[id number] Vancomycin 1,500 mg In 500 Sodium Chloride 0.9% 250 ml @ 125 mls/hr IVPB Q8HR @0600,1400,2200 [facility] Rx#: [id number] Oral 1920 1000 Output: Urine 1999 1435 1225 Other: Voiding Method Urinal Indwelling Catheter Indwelling Catheter - Exam - Constitutional General appearance: average body habitus, cooperative, in no form of respiratory distress. - EENT Eyes: anicteric sclerae, EOMI, PERRLA, dentition normal ENT: NA/AT Ears: bilateral: normal - Neck Neck: no lymphadenopathy, normal ROM Carotids: bilateral: upstroke normal Thyroid: bilateral: normal size - Respiratory Respiratory: Clear breath sound bilaterally, no crackles, no rhonchi, no wheezes. Symmetrical expansion was noted, no chest wall tenderness noted. No pleural rubs - Cardiovascular Rhythm: regular Heart sounds: normal: S1, S2 radial pulse Peripheral Pulses: bilateral: Normal dorsalis pedis Peripheral Pulses: bilateral: Normal - Gastrointestinal General gastrointestinal: no organomegaly, soft, no tenderness - Integumentary Integumentary: flushed, normal turgor - Neurologic Neurologic: CNII-XII intact - Musculoskeletal Musculoskeletal: generalized weakness - Psychiatric Psychiatric: A&O x's 3, appropriate affect, intact judgment & insight - Labs CBC & Chem 7: 11/17/16 04:10 11/17/16 04:10 Labs: Abnormal Lab Results - Last 24 Hours (Table) 11/16/16 11/16/16 11/16/16 Range/Units 14:18 16:33 17:52 RBC (4.30-5.90) m/uL Hgb (13.0-17.5) gm/dL Hct (39.0-53.0) % Lymphocytes # (1.0-4.8) k/uL Sodium (137-145) mmol/L Potassium (3.5-5.1) mmol/L Carbon Dioxide (22-30) mmol/L Glucose (74-99) mg/dL POC Glucose (mg/dL) 312 H 204 H 224 H (75-99) mg/dL Calcium (8.4-10.2) mg/dL Phosphorus (2.5-4.5) mg/dL Urine Protein (Negative) Urine Glucose (UA) (Negative) Urine Ketones (Negative) Urine Blood (Negative) Urine Bilirubin (Negative) Ur Leukocyte Esterase (Negative) Urine RBC (0-5) /hpf Urine WBC (0-5) /hpf Amorphous Sediment (None) /hpf Urine Mucus (None) /hpf 11/16/16 11/16/16 11/16/16 Range/Units 20:13 20:59 21:08 RBC (4.30-5.90) m/uL Hgb (13.0-17.5) gm/dL Hct (39.0-53.0) % Lymphocytes # (1.0-4.8) k/uL Sodium (137-145) mmol/L Potassium 3.1 L (3.5-5.1) mmol/L Carbon Dioxide (22-30) mmol/L Glucose (74-99) mg/dL POC Glucose (mg/dL) 235 H (75-99) mg/dL Calcium (8.4-10.2) mg/dL Phosphorus (2.5-4.5) mg/dL Urine Protein 2+ H (Negative) Urine Glucose (UA) 3+ H (Negative) Urine Ketones 1+ H (Negative) Urine Blood Large H (Negative) Urine Bilirubin 1+ H (Negative) Ur Leukocyte Esterase Trace H (Negative) Urine RBC 107 H (0-5) /hpf Urine WBC 23 H (0-5) /hpf Amorphous Sediment Rare H (None) /hpf Urine Mucus Rare H (None) /hpf 11/17/16 11/17/16 11/17/16 Range/Units 04:10 04:10 07:46 RBC 3.81 L (4.30-5.90) m/uL Hgb 11.3 L (13.0-17.5) gm/dL Hct 33.8 L (39.0-53.0) % Lymphocytes # 0.6 L (1.0-4.8) k/uL Sodium 127 L (137-145) mmol/L Potassium 3.4 L (3.5-5.1) mmol/L Carbon Dioxide 18 L (22-30) mmol/L Glucose 175 H (74-99) mg/dL POC Glucose (mg/dL) 147 H (75-99) mg/dL Calcium 7.7 L (8.4-10.2) mg/dL Phosphorus 1.5 L (2.5-4.5) mg/dL Urine Protein (Negative) Urine Glucose (UA) (Negative) Urine Ketones (Negative) Urine Blood (Negative) Urine Bilirubin (Negative) Ur Leukocyte Esterase (Negative) Urine RBC (0-5) /hpf Urine WBC (0-5) /hpf Amorphous Sediment (None) /hpf Urine Mucus (None) /hpf 11/17/16 Range/Units 11:21 RBC (4.30-5.90) m/uL Hgb (13.0-17.5) gm/dL Hct (39.0-53.0) % Lymphocytes # (1.0-4.8) k/uL Sodium (137-145) mmol/L Potassium (3.5-5.1) mmol/L Carbon Dioxide (22-30) mmol/L Glucose (74-99) mg/dL POC Glucose (mg/dL) 190 H (75-99) mg/dL Calcium (8.4-10.2) mg/dL Phosphorus (2.5-4.5) mg/dL Urine Protein (Negative) Urine Glucose (UA) (Negative) Urine Ketones (Negative) Urine Blood (Negative) Urine Bilirubin (Negative) Ur Leukocyte Esterase (Negative) Urine RBC (0-5) /hpf Urine WBC (0-5) /hpf Amorphous Sediment (None) /hpf Urine Mucus (None) /hpf Microbiology - Last 24 Hours (Table) 11/15/16 09:00 Blood Culture - Preliminary Blood No Growth after 48 hours 11/15/16 13:45 Urine Culture - Final Urine,Voided 11/15/16 13:24 Blood Culture - Preliminary Blood No Growth after 24 hours 11/16/16 11:00 Gram Stain - Final Sputum Sputum Culture - Final Assessment and Plan Plan: #1. Acute community-acquired right lower lobe pneumonia. #2. Acute sepsis due to pneumonia, fever, lactic acidosis present on admission #3. Acute hypoxic respiratory failure secondary to right lower lobe pneumonia #4. Rule out right lower lobe empyema, this was ruled out based on the CT of the chest done yesterday. #5. Hyponatremia, secondary to hypovolemic state. Possible SIADH is not entirely ruled out related to pneumonia. #6. Severe generalized weakness, gait dysfunction and falls #7. Troponin leak likely from septic etiology #8. Diabetes mellitus type 2 #9. CAD, history of coronary artery bypass grafting #10. Hyperlipidemia #11. Essential hypertension #12. Osteoarthritis Recommendation: Continue present course of antibiotics, continue bronchodilators , continue GI and DVT prophylaxis, considering the patient made a significant improvement over the last 24 hours, I plan to move him out of the ICU to a regular medical floor today. We'll continue to follow. Time with Patient: Less than 30
--- NOTE | 2016-11-17 15:31 | P.PN ---
Progress Note - Text DATE OF SERVICE: 11/17/2016 PRESENTING COMPLAINT: Weak and tired HISTORY OF PRESENT ILLNESS: 56-year-old male presented with fever chills nausea and not much of an appetite for the previous 5 days. Diagnostic imaging revealed an infiltrate. Admitted for pneumonia. INTERVAL HISTORY: 11/17/2016: Patient lying in bed appears much more comfortable, breathing easier, no fever no chills no wheezing. Antibiotics continued in the form of Zosyn and vancomycin. Chest x-ray shows no change, chest CT revealed significant consolidation with air bronchograms suggesting bronchopneumonia. Has been hypertensive medications being adjusted. Appetite poor, ate about 20% of his meals, last BM 11/17/2016. Overall condition stabilized enough where patient is appropriate to transfer back to a medical floor. 11/16/2016: Patient lying in bed appears uncomfortable, receiving a breathing treatment being transferred to the ICU. Antibiotics continue in the form of Zosyn , chest x-ray with no improvement. Chest CT pending to rule out lung empyema. Appetite poor, last BM prior to admission currently on bedrest. REVIEW OF SYSTEMS: Done for constitutional ,cardiovascular, GI, pulmonary with relevant findings as above. CURRENT MEDICATIONS [place], DuoNeb, Lipitor, Catapres, Plavix, Cardizem, Cozaar Lovenox, Lantus 30 units subcu at at bedtime, Cozaar, Glucophage, Lopressor, Protonix. PHYSICAL EXAM VITAL SIGNS: Temp temperature 98.1, respiratory rate 23, pulse 89, blood pressure 177/100. Oxygen saturation 100% on 2 L. GENERAL APPEARANCE: Lying in bed, appears comfortable. EYES: Pupils equal. Conjunctiva normal. NECK: JVD not raised. Mass not palpable. RESPIRATORY: Respiratory effort increased. Bilateral diffuse crackles to auscultation. CARDIOVASCULAR: First and second sounds normal. No edema. ABDOMEN: Soft. Liver and spleen not palpable. No tenderness. No mass palpable. PSYCHIATRY: Alert and oriented x3. Mood and affect anxious INVESTIGATIONS: Labs: Hemoglobin 11.3, sodium 127, potassium 3.4, Chest x-ray: Patchy density right medial lung base essentially unchanged. ASSESSMENT: -Acute hypoxic respiratory failure secondary to pneumonia, improving -Right lower lobe pneumonia suspect gram-negative causing severe sepsis, present on admission including lactic acidosis. -Hyponatremia likely hypoosmolar from excessive fluid intake. Patient's solid intake is gone down. -Troponin leak probably from hemodynamic mismatch from sepsis not acute myocardial infarction. -Coronary artery repair history of stent and coronary artery bypass grafting. 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 -Gastroesophageal reflux disease. -Hyperlipidemia. -Essential hypertension. -Primary osteoarthritis in multiple joints bilateral. PLAN: We'll continue with current course of antibiotics bronchodilators. Patient is made significant improvement over the last 24 hours as he will be transferred from the ICU to regular medical floor later today. Plan of care discussed with patient the bedside questions answered. We'll continue to follow closely. [facility] statement: Patient was seen and examined by nurse practitioner Lindsey Arias and all elements of the case discussed with attending Dr. Sandhu
[2016-11-17 17:23] LABS: Glucose,Whole Blood 192 mg/dL (75-99)
[2016-11-17] MEDS ORDERED: Potassium Replacement Protocol 1 EACH MISC MISCELLANE PRN (17:41)
--- NOTE | 2016-11-17 19:36 | PN ---
PROGRESS NOTE DATE OF SERVICE: 11/17/2016 ATTENDING NOTE: This patient was examined by me and discussed with my nurse practitioner, Ms. Arias. Patient admitted with severe pneumonia with sepsis and acute hypoxic respiratory failure. The patient was mobilized yesterday and this morning doing actually better, down to 4L of nasal cannula. Ate a little bit, sitting up. EXAMINATION: Afebrile. LUNGS: Decreased breath sounds. No expiratory wheezing. INVESTIGATIONS: White count 5.8, hemoglobin 11.3. Sodium 127. Cultures are negative. Chest x-ray from this morning shows patchy density right middle lung, unchanged. Chest CT scan shows prominent right lower lobe consolidated . ASSESSMENT: 1. Acute severe right lower lobe pneumonia, suspect gram-negative organism causing severe sepsis on presentation. 2. Acute hypoxic respiratory failure now with some clinical improvement. PLAN: Patient can be moved out of ICU. Patient remains on IV vancomycin, IV Zosyn. Care was discussed with the patient. ATA / KAMARN: [id number] /
[2016-11-17] MEDS: IPRATROPIUM-ALBUTEROL 3 ML NEB INHALATION PRN (20:30)
[2016-11-17] MEDS: INSULIN GLARGINE 100 UNIT/ML 10 ML VIAL SQ SCH (22:22)
[2016-11-17 22:28] LABS: Glucose,Whole Blood 158 mg/dL (75-99)
[2016-11-18] MEDS: PIPERACILLIN-TAZOBACTAM 3.375 GM in DEXTROSE/WATER 1 50ML.BAG IVPB SCH ×3 (00:03→17:06)
[2016-11-18] MEDS: SODIUM CHLORIDE 0.9% 1,000 ML IV SCH ×2 (03:37→13:21)
[2016-11-18 04:30] LABS: Basophils # (A) 0.1 k/uL (0-0.2); Basophils % (A) 1 %; CH 30.3; CHCM 34.2; Eosinophils # (A) 0.1 k/uL (0-0.7); Eosinophils % (A) 1 %; HCT 34.2 % (39.0-53.0); HDW 2.68; HGB 11.2 gm/dL (13.0-17.5); Luc # (Auto) 0.18; Luc % (Auto) 3; Lymphocytes # (A) 0.5 k/uL (1.0-4.8); Lymphocytes % (A) 8 %; MCH 29.1 pg (25.0-35.0); MCHC 32.6 g/dL (31.0-37.0); MCV 89.2 fL (80.0-100.0); Mean Platelet Volume 7.4; Monocytes # (A) 0.3 k/uL (0-1.0); Monocytes % (A) 5 %; Neutrophils # (A) 4.6 k/uL (1.3-7.7); Neutrophils % (A) 81 %; RBC 3.84 m/uL (4.30-5.90); RDW 14.9 % (11.5-15.5); WBC 5.6 k/uL (3.8-10.6); WBC (Perox) 6.01
[2016-11-18 04:40] LABS: Anion Gap 12 mmol/L; Blood Urea Nitrogen 10 mg/dL (9-20); Calcium 7.6 mg/dL (8.4-10.2); Carbon Dioxide 17 mmol/L (22-30); Chloride 103 mmol/L (98-107); Glucose 199 mg/dL (74-99); Non-African American GFR(MDRD) >60 (>60 ml/min/1.73 sqM); Phosphorous 1.6 mg/dL (2.5-4.5); Potassium 3.4 mmol/L (3.5-5.1); Sodium 132 mmol/L (137-145)
[2016-11-18] MEDS ORDERED: VANCOMYCIN TROUGH DUE 1 EACH MISC MISCELLANE ONE (05:00)
[2016-11-18] MEDS: VANCOMYCIN 1,500 MG in SODIUM CHLORIDE 0.9% 250 ML IVPB SCH (06:05)
[2016-11-18 07:31] LABS: Glucose,Whole Blood 154 mg/dL (75-99)
[2016-11-18] MEDS: METOPROLOL TARTRATE 50 MG TAB PO SCH ×2 (07:56→19:08)
[2016-11-18] MEDS: PANTOPRAZOLE 40 MG TABLET PO SCH (07:56)
[2016-11-18] MEDS: INSULIN LISPRO (humaLOG) 300 UNIT/3 ML VIAL SQ SCH ×4 (08:14→21:36)
--- NOTE | 2016-11-18 09:14 | XR ---
EXAMINATION TYPE: XR chest 1V portable DATE OF EXAM: 11/18/2016 COMPARISON: 11/17/2016 HISTORY: Shortness of breath TECHNIQUE: Single frontal view of the chest is obtained. FINDINGS: Right infrahilar and right basilar opacities is increasing in comparison to the prior exam . Somewhat low lung volumes may accentuate this finding. Median sternotomy wires, mediastinal clips, and cervical fusion device are noted. Remainder the lungs appear clear. Cardiac silhouette is again mildly enlarged. Osseous structures appear intact. IMPRESSION: Worsening right lower lobe pneumonia.
[2016-11-18] MEDS: cloNIDine HCL 0.1 MG TAB PO SCH ×2 (10:15→21:36)
[2016-11-18] MEDS: ATORVASTATIN 40 MG TAB PO SCH (10:15)
[2016-11-18] MEDS: ENOXAPARIN 40 MG/0.4 ML SYRINGE SQ SCH (10:16)
[2016-11-18] MEDS: DILTIAZEM CD 180 MG CAP.ER.24H PO SCH (10:16)
[2016-11-18] MEDS: LOSARTAN 50 MG TAB PO SCH (10:16)
[2016-11-18] MEDS: CLOPIDOGREL 75 MG TAB PO SCH (10:16)
[2016-11-18] MEDS: metFORMIN 500 MG TAB PO SCH ×2 (10:17→21:37)
[2016-11-18] MEDS: PIOGLITAZONE 30 MG TAB PO SCH (10:17)
[2016-11-18 11:42] LABS: Glucose,Whole Blood 248 mg/dL (75-99)
[2016-11-18] MEDS ORDERED: Potassium Replacement Protocol 1 EACH MISC MISCELLANE PRN (12:04)
--- NOTE | 2016-11-18 12:05 | P.PN ---
Subjective Principal diagnosis: acute community-acquired pneumonia, right upper lobe and sepsis This is a pleasant 56-year-old white male with history of multiple medical problems including coronary artery disease, diabetes mellitus II, GERD, hyperlipidemia, hypertension, osteoarthritis with 1 week history of high fevers , shortness of breath, cough, decreased appetite and weakness. The patient was treated by his PCP with oral amoxicillin with no improvement in his symptoms. Patient was becoming progressively weak, with continued chest congestion and fever, started experiencing falls at home. At which time he was brought in by his to the emergency department for evaluation and was subsequently admitted. Patient was initially given Levaquin which was later switched to Rocephin. Chest x-ray from 11/16/2016 show persistence right basilar infiltrate with right pleural effusion and patchy left basilar atelectasis and/ or infiltrate. On 11/15/2016 plasma lactic acid was elevated at 2.1 for which patient received 3 L of normal saline in fluid boluses. Blood cultures showed no growth after 24 hours, sputum culture was contaminated with oral paulina. Today we are asked to see the patient in consult in regards to his worsening respiratory status, tachypnea, fever of 103F and possible sepsis. Patient seen sitting up in bed, dyspneic with normal conversation, tachypneic at 28 breaths per minute, oxygen saturations of 90% on 4 L per nasal cannula. Lung sounds are coarse inspiratory crackles over left lower lobe, diminished air entry. Febrile, appears acutely ill. is at the bedside, provided much the history as the patient has difficulty speaking in full sentences. Blood gases were obtained and reviewed, pH is 7.5, pCO2 is 18.7, pO2 is 57 on 4 L of oxygen. Patient has primary respiratory alkalosis, hypoxic respiratory failure secondary to right lower lobe pneumonia. Patient will placed on 100% nonrebreather, antibiotic coverage will be switched to Zosyn, and patient will be transferred to the intensive care for further management. Blood and sputum cultures will be obtained. Will obtain CT of chest without contrast to rule out the possibility of right lower lobe empyema. Reevaluated today on 11/17/2016, patient seems to be doing significantly better compared to how he was yesterday. Less shortness of breath, no fever, no chills , no wheezing. CT of the chest failed to show any empyema, however there was a significant consolidation and air bronchogram noted in the right lower lobe consistent with pneumonia. Labs today were all reviewed he has WBC count of 5.8 hemoglobin is 11.3. Sodium is 127 potassium of 3.4 being corrected as per protocol. Cultures so far are nondiagnostic, and negative including blood and urine and sputum. Clinically however there has been a dramatic improvement noted. Patient seems to be comfortable, he is presently on 3 L nasal cannula. On 11/18/2016 the patient is seen in follow-up, continues to improve. Denies chest congestion, wheezing, or significant sputum production. No febrile episodes noted. Hemodynamically stable. His main complaint today is lack of energy. Lung sounds are clear. Diminished at the bases. No rhonchi, no rales , no wheezing. Continues on 4 L oxygen per nasal cannula with oxygen saturations around 91-95%. Cultures have been reviewed and are negative so far. Patient continues on vancomycin and Zosyn for antibiotic coverage. On DuoNeb nebulizers treatments. Increase activity as tolerated. Objective - Vital Signs Vital signs: Vital Signs Temp 96.9 F L 11/18/16 07:51 Pulse 96 11/18/16 08:00 Resp 20 11/18/16 08:45 BP 172/90 11/18/16 07:51 Pulse Ox 91 L 11/17/16 22:19 Intake & Output 11/17/16 11/18/16 11/18/16 18:59 06:59 18:59 Intake Total 1537.5 590 Output Total 1625 Balance -87.5 590 Intake: IV 162.5 Piperacillin-Tazobactam 3 62.5 .375 gm In Dextrose/Water 1 50ml.bag @ 12.5 mls/hr IVPB Q8HR [facility] Rx#: [id number] Sodium Chloride 0.9% 1, 100 000 ml @ 100 mls/hr IV . Q10H [facility] Rx#:[id number] Intake, IV Titration 375.0 Amount Magnesium Sulfate-D5w Pmx 100 1 gm In Dextrose/Water 1 100ml.bag @ 100 mls/hr IVPB Q1H [facility] Rx#: [id number] Piperacillin-Tazobactam 3 25.0 .375 gm In Dextrose/Water 1 50ml.bag @ 12.5 mls/hr IVPB Q8HR [facility] Rx#: [id number] Sodium Phosphate 10 mmol 250 In Sodium Chloride 0.9% 250 ml @ 125 mls/hr IVPB Q2H [facility] Rx#:[id number] Oral 1000 590 Output: Urine 1625 Other: Voiding Method Indwelling Catheter Toilet # Voids 1 2 # Bowel Movements 1 1 - Exam GENERAL EXAM: Alert, active, comfortable in no apparent distress, appears fatigued HEAD: Normocephalic. EYES: Normal reaction of pupils, equal size. NOSE: Clear with pink turbinates. THROAT: No erythema or exudates. NECK: No masses, no JVD. CHEST: No chest wall deformity. LUNGS: Equal air entry with no crackles, wheeze, rhonchi or dullness. CVS: S1 and S2 normal with no audible mumurs, regular rhythm. ABDOMEN: No hepatosplenomegaly, normal bowel sounds, no guarding or rigidity. SPINE: No scoliosis or deformity SKIN: No rashes CENTRAL NERVOUS SYSTEM: No focal deficits, tone is normal in all 4 extremities. - Labs CBC & Chem 7: 11/18/16 03:54 11/18/16 03:54 Labs: Abnormal Lab Results - Last 24 Hours (Table) 11/17/16 11/17/16 11/17/16 Range/Units 16:06 17:21 22:27 RBC (4.30-5.90) m/uL Hgb (13.0-17.5) gm/dL Hct (39.0-53.0) % Lymphocytes # (1.0-4.8) k/uL Sodium (137-145) mmol/L Potassium 3.4 L (3.5-5.1) mmol/L Carbon Dioxide (22-30) mmol/L Glucose (74-99) mg/dL POC Glucose (mg/dL) 192 H 158 H (75-99) mg/dL Calcium (8.4-10.2) mg/dL Phosphorus (2.5-4.5) mg/dL 11/18/16 11/18/16 11/18/16 Range/Units 03:54 03:54 07:26 RBC 3.84 L (4.30-5.90) m/uL Hgb 11.2 L (13.0-17.5) gm/dL Hct 34.2 L (39.0-53.0) % Lymphocytes # 0.5 L (1.0-4.8) k/uL Sodium 132 L (137-145) mmol/L Potassium 3.4 L (3.5-5.1) mmol/L Carbon Dioxide 17 L (22-30) mmol/L Glucose 199 H (74-99) mg/dL POC Glucose (mg/dL) 154 H (75-99) mg/dL Calcium 7.6 L (8.4-10.2) mg/dL Phosphorus 1.6 L (2.5-4.5) mg/dL 11/18/16 Range/Units 11:40 RBC (4.30-5.90) m/uL Hgb (13.0-17.5) gm/dL Hct (39.0-53.0) % Lymphocytes # (1.0-4.8) k/uL Sodium (137-145) mmol/L Potassium (3.5-5.1) mmol/L Carbon Dioxide (22-30) mmol/L Glucose (74-99) mg/dL POC Glucose (mg/dL) 248 H (75-99) mg/dL Calcium (8.4-10.2) mg/dL Phosphorus (2.5-4.5) mg/dL Microbiology - Last 24 Hours (Table) 11/15/16 09:00 Blood Culture - Preliminary Blood No Growth after 72 hours 11/17/16 04:45 Gram Stain - Preliminary Sputum 11/15/16 13:24 Blood Culture - Preliminary Blood No Growth after 48 hours 11/16/16 13:09 Blood Culture - Preliminary Blood No Growth after 24 hours 11/16/16 13:28 Blood Culture - Preliminary Blood No Growth after 24 hours Assessment and Plan Plan: Assessment: #1. acute community-acquired right lower lobe pneumonia. #2. Sepsis due to pneumonia, fever, lactic acidosis present on admission #3. Acute hypoxic respiratory failure secondary to pneumonia #4. Rule out right lower lobe empyema, this was ruled out based on the CT of the chest done on 11/16/2016 #5. Hyponatremia, hypoosmolar from excessive fluid intake. #6. Severe generalized weakness, gait dysfunction and falls #7. Troponin leak likely from septic etiology #8. Diabetes mellitus type 2 #9. CAD, history of coronary artery bypass grafting #10. Hyperlipidemia #11. Essential hypertension #12. Osteoarthritis Plan: continue present course of antibiotics in the form of vancomycin and Zosyn, continue bronchodilators, GI and [place] prophylaxis. Patient continues to improve although continues with significant generalized weakness. Increase activity as tolerated. We'll continue to closely follow I performed a history & physical examination of the patient and discussed their management with my nurse practitioner, Charlene Portillo. I reviewed the nurse practitioner's note and agree with the documented findings and plan of care.
[2016-11-18] MEDS: POTASSIUM CHLORIDE ER 20 MEQ TAB.ER PO SCH ×2 (13:25→17:06)
[2016-11-18] MEDS: VANCOMYCIN 1,250 MG in SODIUM CHLORIDE 0.9% 250 ML IVPB SCH ×2 (13:25→21:37)
[2016-11-18] MEDS ORDERED: FUROSEMIDE 10 MG/ML 4 ML VIAL IV STA (16:11)
[2016-11-18 16:59] LABS: Glucose,Whole Blood 183 mg/dL (75-99)
--- NOTE | 2016-11-18 17:55 | PN ---
PROGRESS NOTE I am covering for Dr. Sandhu. DATE OF SERVICE: 11/18/2016 HISTORY: This 56-year-old gentleman admitted with acute right lower lobe pneumonia, community- acquired, with sepsis, also has significant shortness of breath also. The patient is being closely monitored. The patient is on broad spectrum antibiotics. The patient had a CT scan of the chest which showed consolidation by air bronchogram. No other abnormality was noted. The patient also had chest x-ray done today which was reviewed personally by me which showed worsening right lower lobe pneumonia. The patient is still short of breath. PAST MEDICAL: Reviewed. REVIEW OF SYSTEMS: Cardiovascular system: No angina or palpitations. Respiratory: No cough. GI: No nausea or vomiting. : No dysuria. Nervous System: No numbness or weakness. Allergy/immunology: As mentioned earlier. Musculoskeletal: As mentioned earlier. MEDICATIONS: Current medications reviewed, include: 1. Tylenol 650 every 6 hours p.r.n. 2. [place] 5 mg every 4 hours p.r.n. 3. DuoNeb q.i.d. 4. Lipitor 40 mg. 5. Catapres 0.1 p.o. b.i.d. 6. Plavix 75 mg p.o. daily. 7. Cardizem 180 mg daily. 8. Lovenox 40 mg subcu daily. 9. Lantus 30 units at bedtime. 10.Humalog with meals. 11.Cozaar 100 mg daily. 12.Melatonin 5 mg at bedtime. 13.Glucovance 500 mg p.o. b.i.d. 14.Lopressor 100 mg p.o. b.i.d. 15.Protonix 40 mg daily. 16.Actos 30 mg p.o. daily. 17.Zosyn 3.65 IV every 8 hours. 18.Vancomycin 1.25 b.i.d. PHYSICAL EXAMINATION: GENERAL: The patient is alert, oriented x3. VITAL SIGNS: Pulse is 91, blood pressure 150/83, respiratory rate 20, temp is 97.4, pulse ox 97% on 3 L. HEENT: Conjunctivae normal. Oral mucosa moist. NECK: No jugular venous distention. No lymph nodes palpable. CARDIOVASCULAR: S1 and S2. LUNGS: Breath sounds diminished at the bases. Bilateral scattered rhonchi and crackles. Breath sounds are diminished in the right lower lobe. ABDOMEN: Soft, nontender. No mass palpable. EXTREMITIES: Legs no edema, no swelling. NERVOUS SYSTEM: Higher functions as mentioned. Moves all limbs with no focal motor deficits. LYMPHATICS: No lymph nodes palpable in the neck, axillae or groin. SKIN: No rashes. LABORATORY DATA: Sodium 139, potassium 3.5, Accu-Cheks 154, pulse is 1.6. ASSESSMENT: 1. Acute right lower lobe pneumonia, community-acquired, with possible sepsis present on admission along with acute hypoxic respiratory failure. 2. Lactic acidosis secondary to sepsis. 3. Hyponatremia likely hypoosmolar. 4. Troponin leak possibly from hemodynamic mismatch from sepsis. 5. Coronary artery diseases with stent and coronary artery bypass grafting. 6. Diabetes type 2. 7. Gastroesophageal reflux disease. 8. Hyperlipidemia. 9. Essential hypertension. 10.Degenerative joint disease. RECOMMENDATIONS: In this 56-year-old gentleman who presented with multiple complex medical issues, we will monitor the patient closely, continue the current management with broad-spectrum antibiotics. Replace potassium. DVT prophylaxis. Optimize the bronchodilator treatment. Otherwise, we will continue to monitor. Stop IV fluids. Guarded prognosis because of multiple complex medical issues. Further recommendations to follow. See orders for further details. MMODL / IJN: [id number] /
[2016-11-18 20:40] LABS: Glucose,Whole Blood 200 mg/dL (75-99)
[2016-11-18] MEDS: LEVALBUTEROL NEB (CONC) 1.25 MG/0.5 ML AMP INHALATION SCH (21:15)
[2016-11-18] MEDS: BUDESONIDE 1 MG/2 ML NEBU INHALATION SCH (21:15)
[2016-11-18] MEDS: FORMOTEROL FUMARATE 20 MCG/2 ML NEBU INHALATION SCH (21:15)
[2016-11-18] MEDS: IPRATROPIUM 0.5 MG/2.5 ML NEBU INHALATION SCH (21:15)
[2016-11-18] MEDS: INSULIN GLARGINE 100 UNIT/ML 10 ML VIAL SQ SCH (21:36)
[2016-11-18] MEDS: MELATONIN 5 MG TABLET PO SCH (21:37)
[2016-11-19] MEDS: PIPERACILLIN-TAZOBACTAM 3.375 GM in DEXTROSE/WATER 1 50ML.BAG IVPB SCH ×4 (00:37→23:58)
[2016-11-19] MEDS: VANCOMYCIN 1,250 MG in SODIUM CHLORIDE 0.9% 250 ML IVPB SCH ×3 (05:42→22:17)
[2016-11-19 06:55] LABS: Glucose,Whole Blood 167 mg/dL (75-99)
[2016-11-19] MEDS: LEVALBUTEROL NEB (CONC) 1.25 MG/0.5 ML AMP INHALATION SCH ×3 (07:33→19:56)
[2016-11-19] MEDS: BUDESONIDE 1 MG/2 ML NEBU INHALATION SCH ×2 (07:33→19:56)
[2016-11-19] MEDS: IPRATROPIUM 0.5 MG/2.5 ML NEBU INHALATION SCH ×3 (07:33→19:56)
[2016-11-19] MEDS: FORMOTEROL FUMARATE 20 MCG/2 ML NEBU INHALATION SCH ×2 (07:33→19:56)
[2016-11-19] MEDS: INSULIN LISPRO (humaLOG) 300 UNIT/3 ML VIAL SQ SCH ×4 (08:18→20:39)
[2016-11-19] MEDS: ASPIRIN 325 MG TAB PO SCH (08:20)
[2016-11-19] MEDS: ENOXAPARIN 40 MG/0.4 ML SYRINGE SQ SCH (08:20)
[2016-11-19] MEDS: metFORMIN 500 MG TAB PO SCH ×2 (08:20→20:44)
[2016-11-19] MEDS: PANTOPRAZOLE 40 MG TABLET PO SCH (08:21)
[2016-11-19] MEDS: METOPROLOL TARTRATE 50 MG TAB PO SCH ×2 (08:21→15:26)
[2016-11-19] MEDS: ATORVASTATIN 40 MG TAB PO SCH (08:21)
[2016-11-19] MEDS: LOSARTAN 50 MG TAB PO SCH (08:21)
[2016-11-19] MEDS: PIOGLITAZONE 30 MG TAB PO SCH (08:21)
[2016-11-19] MEDS: DILTIAZEM CD 180 MG CAP.ER.24H PO SCH (08:22)
[2016-11-19] MEDS: CLOPIDOGREL 75 MG TAB PO SCH (08:22)
[2016-11-19] MEDS: cloNIDine HCL 0.1 MG TAB PO SCH ×2 (08:22→20:44)
[2016-11-19 08:41] LABS: Basophils % (A) 1 %; CH 29.4; Eosinophils # (A) 0.2 k/uL (0-0.7); Eosinophils % (A) 3 %; HCT 34.5 % (39.0-53.0); HDW 2.72; HGB 11.1 gm/dL (13.0-17.5); Luc % (Auto) 4; Lymphocytes # (A) 0.6 k/uL (1.0-4.8); Lymphocytes % (A) 13 %; MCHC 32.3 g/dL (31.0-37.0); MCV 89.9 fL (80.0-100.0); Mean Platelet Volume 7.2; Monocytes # (A) 0.4 k/uL (0-1.0); Monocytes % (A) 8 %; Neutrophils # (A) 3.3 k/uL (1.3-7.7); Neutrophils % (A) 70 %; RBC 3.84 m/uL (4.30-5.90); RDW 14.4 % (11.5-15.5); WBC 4.7 k/uL (3.8-10.6); WBC (Perox) 4.86
[2016-11-19 08:51] LABS: Anion Gap 13 mmol/L; Blood Urea Nitrogen 8 mg/dL (9-20); Calcium 7.7 mg/dL (8.4-10.2); Carbon Dioxide 22 mmol/L (22-30); Chloride 102 mmol/L (98-107); Glucose 180 mg/dL (74-99); Magnesium 1.9 mg/dL (1.6-2.3); Non-African American GFR(MDRD) >60 (>60 ml/min/1.73 sqM); Phosphorous 2.1 mg/dL (2.5-4.5); Potassium 3.3 mmol/L (3.5-5.1); Sodium 137 mmol/L (137-145)
[2016-11-19 10:14] LABS: Glucose,Whole Blood 188 mg/dL (75-99)
[2016-11-19 11:59] LABS: Glucose,Whole Blood 166 mg/dL (75-99)
[2016-11-19] MEDS ORDERED: Potassium Replacement Protocol 1 EACH MISC MISCELLANE PRN ×2 (16:36→16:46)
--- NOTE | 2016-11-19 16:37 | P.PN ---
Subjective Principal diagnosis: acute community-acquired pneumonia, right upper lobe and sepsis This is a pleasant 56-year-old white male with history of multiple medical problems including coronary artery disease, diabetes mellitus II, GERD, hyperlipidemia, hypertension, osteoarthritis with 1 week history of high fevers , shortness of breath, cough, decreased appetite and weakness. The patient was treated by his PCP with oral amoxicillin with no improvement in his symptoms. Patient was becoming progressively weak, with continued chest congestion and fever, started experiencing falls at home. At which time he was brought in by his to the emergency department for evaluation and was subsequently admitted. Patient was initially given Levaquin which was later switched to Rocephin. Chest x-ray from 11/16/2016 show persistence right basilar infiltrate with right pleural effusion and patchy left basilar atelectasis and/ or infiltrate. On 11/15/2016 plasma lactic acid was elevated at 2.1 for which patient received 3 L of normal saline in fluid boluses. Blood cultures showed no growth after 24 hours, sputum culture was contaminated with oral paulina. Today we are asked to see the patient in consult in regards to his worsening respiratory status, tachypnea, fever of 103F and possible sepsis. Patient seen sitting up in bed, dyspneic with normal conversation, tachypneic at 28 breaths per minute, oxygen saturations of 90% on 4 L per nasal cannula. Lung sounds are coarse inspiratory crackles over left lower lobe, diminished air entry. Febrile, appears acutely ill. is at the bedside, provided much the history as the patient has difficulty speaking in full sentences. Blood gases were obtained and reviewed, pH is 7.5, pCO2 is 18.7, pO2 is 57 on 4 L of oxygen. Patient has primary respiratory alkalosis, hypoxic respiratory failure secondary to right lower lobe pneumonia. Patient will placed on 100% nonrebreather, antibiotic coverage will be switched to Zosyn, and patient will be transferred to the intensive care for further management. Blood and sputum cultures will be obtained. Will obtain CT of chest without contrast to rule out the possibility of right lower lobe empyema. Reevaluated today on 11/17/2016, patient seems to be doing significantly better compared to how he was yesterday. Less shortness of breath, no fever, no chills , no wheezing. CT of the chest failed to show any empyema, however there was a significant consolidation and air bronchogram noted in the right lower lobe consistent with pneumonia. Labs today were all reviewed he has WBC count of 5.8 hemoglobin is 11.3. Sodium is 127 potassium of 3.4 being corrected as per protocol. Cultures so far are nondiagnostic, and negative including blood and urine and sputum. Clinically however there has been a dramatic improvement noted. Patient seems to be comfortable, he is presently on 3 L nasal cannula. On 11/18/2016 the patient is seen in follow-up, continues to improve. Denies chest congestion, wheezing, or significant sputum production. No febrile episodes noted. Hemodynamically stable. His main complaint today is lack of energy. Lung sounds are clear. Diminished at the bases. No rhonchi, no rales , no wheezing. Continues on 4 L oxygen per nasal cannula with oxygen saturations around 91-95%. Cultures have been reviewed and are negative so far. Patient continues on vancomycin and Zosyn for antibiotic coverage. On DuoNeb nebulizers treatments. Increase activity as tolerated. On 11/19/2016 patient continues to improve. He seems to be less fatigued today. Sitting up in bed, denies shortness of breath, chills or chest congestion. Oxygen had been weaned down to 3 L per nasal cannula with saturations around 94%. Cultures have been negative so far. Continues on a combination of vancomycin and Zosyn for antibiotic coverage. On DuoNeb nebulizer treatments. Patient seems to be comfortable. No febrile episodes through the night. He states he feels clammy today but overall he is feeling better. Lung sounds few respiratory Rales over right lower lobe. Objective - Vital Signs Vital signs: Vital Signs Temp 97.9 F 11/19/16 15:00 Pulse 86 11/19/16 15:00 Resp 18 11/19/16 15:00 BP 168/79 11/19/16 15:00 Pulse Ox 94 L 11/19/16 15:00 Intake & Output 11/18/16 11/19/16 11/19/16 18:59 06:59 18:59 Intake Total 1700 350 Output Total 450 500 Balance -450 1200 350 Weight 98.7 kg Intake: IV 800 Sodium Chloride 0.9% 1, 800 000 ml @ 100 mls/hr IV . Q10H [facility] Rx#:[id number] Intake, IV Titration 300 350 Amount Piperacillin-Tazobactam 3 50 100 .375 gm In Dextrose/Water 1 50ml.bag @ 12.5 mls/hr IVPB Q8HR [facility] Rx#: [id number] Vancomycin 1,250 mg In 250 250 Sodium Chloride 0.9% 250 ml @ 125 mls/hr IVPB Q8HR @0600,1400,2200 [facility] Rx#: [id number] Oral 600 Output: Urine 450 500 Other: Voiding Method Toilet Toilet Toilet # Voids 1 - Exam GENERAL EXAM: Alert, active, comfortable in no apparent distress, appears fatigued HEAD: Normocephalic. EYES: Normal reaction of pupils, equal size. NOSE: Clear with pink turbinates. THROAT: No erythema or exudates. NECK: No masses, no JVD. CHEST: No chest wall deformity. LUNGS: Equal air entry with no crackles, wheeze, rhonchi or dullness. CVS: S1 and S2 normal with no audible mumurs, regular rhythm. ABDOMEN: No hepatosplenomegaly, normal bowel sounds, no guarding or rigidity. SPINE: No scoliosis or deformity SKIN: No rashes CENTRAL NERVOUS SYSTEM: No focal deficits, tone is normal in all 4 extremities. - Labs CBC & Chem 7: 11/19/16 08:01 11/19/16 08:01 Labs: Abnormal Lab Results - Last 24 Hours (Table) 11/18/16 11/18/16 11/19/16 Range/Units 16:54 20:34 06:53 RBC (4.30-5.90) m/uL Hgb (13.0-17.5) gm/dL Hct (39.0-53.0) % Lymphocytes # (1.0-4.8) k/uL Potassium (3.5-5.1) mmol/L BUN (9-20) mg/dL Glucose (74-99) mg/dL POC Glucose (mg/dL) 183 H 200 H 167 H (75-99) mg/dL Calcium (8.4-10.2) mg/dL Phosphorus (2.5-4.5) mg/dL 11/19/16 11/19/16 11/19/16 Range/Units 08:01 08:01 10:11 RBC 3.84 L (4.30-5.90) m/uL Hgb 11.1 L (13.0-17.5) gm/dL Hct 34.5 L (39.0-53.0) % Lymphocytes # 0.6 L (1.0-4.8) k/uL Potassium 3.3 L (3.5-5.1) mmol/L BUN 8 L (9-20) mg/dL Glucose 180 H (74-99) mg/dL POC Glucose (mg/dL) 188 H (75-99) mg/dL Calcium 7.7 L (8.4-10.2) mg/dL Phosphorus 2.1 L (2.5-4.5) mg/dL 11/19/16 Range/Units 11:53 RBC (4.30-5.90) m/uL Hgb (13.0-17.5) gm/dL Hct (39.0-53.0) % Lymphocytes # (1.0-4.8) k/uL Potassium (3.5-5.1) mmol/L BUN (9-20) mg/dL Glucose (74-99) mg/dL POC Glucose (mg/dL) 166 H (75-99) mg/dL Calcium (8.4-10.2) mg/dL Phosphorus (2.5-4.5) mg/dL Microbiology - Last 24 Hours (Table) 11/15/16 13:24 Blood Culture - Preliminary Blood No Growth after 96 hours 11/16/16 13:09 Blood Culture - Preliminary Blood No Growth after 72 hours 11/16/16 13:28 Blood Culture - Preliminary Blood No Growth after 72 hours 11/15/16 09:00 Blood Culture - Preliminary Blood No Growth after 96 hours 11/17/16 04:45 Gram Stain - Final Sputum Sputum Culture - Final Assessment and Plan Plan: Assessment: #1. acute community-acquired right lower lobe pneumonia. #2. Sepsis due to pneumonia, fever, lactic acidosis present on admission #3. Acute hypoxic respiratory failure secondary to pneumonia #4. Rule out right lower lobe empyema, this was ruled out based on the CT of the chest done on 11/16/2016 #5. Hyponatremia, hypoosmolar from excessive fluid intake. #6. Severe generalized weakness, gait dysfunction and falls #7. Troponin leak likely from septic etiology #8. Diabetes mellitus type 2 #9. CAD, history of coronary artery bypass grafting #10. Hyperlipidemia #11. Essential hypertension #12. Osteoarthritis Plan: continue present course of antibiotics in the form of vancomycin and Zosyn, continue bronchodilators, GI and UT prophylaxis. Patient continues to improve although continues with significant generalized weakness. Increase activity as tolerated. We'll continue to closely follow I performed a history & physical examination of the patient and discussed their management with my nurse practitioner, Charlene Portillo. I reviewed the nurse practitioner's note and agree with the documented findings and plan of care. Time with Patient: Less than 30
[2016-11-19] MEDS ORDERED: cloNIDine HCL 0.1 MG TAB PO PRN (17:04)
[2016-11-19 17:06] LABS: Glucose,Whole Blood 191 mg/dL (75-99)
--- NOTE | 2016-11-19 18:08 | PN ---
PROGRESS NOTE DATE OF SERVICE: 11/19/2016 This 56-year-old gentleman who was admitted with acute right lower lobe pneumonia, community-acquired with sepsis, is being closely monitored at this time. Chest x-ray showed some worsening. Pulmonary is following the patient closely. The patient is on IV antibiotics. He has multiple other medical problems also. CT scan of the chest was noted. The cultures are negative so far; however, the white count is 4.7, hemoglobin 11.1. Potassium is 3.3, phosphorus 2.1. Past medical history reviewed. REVIEW OF SYSTEMS: CARDIOVASCULAR SYSTEM: No angina, palpitations. RESPIRATORY SYSTEM: As mentioned earlier. GI: As mentioned earlier. : No dysuria, retention. NERVOUS SYSTEM: No numbness, weakness. CURRENT MEDICATIONS: Current medications are reviewed and include: 1. Tylenol 650 q.6 p.r.n. 2. Chicken 5 mg q.4 p.r.n. 3. Aspirin 325 mg daily. 4. Lipitor 40 mg daily. 5. Pulmicort 1 mg b.i.d. 6. Catapres 0.1 p.o. b.i.d. 7. Plavix 75 mg p.o. daily. 8. Cardizem CD 180 mg p.o. daily. 9. Lovenox 40 mg subcutaneously daily. 10.Perforomist 20 mcg b.i.d. 11.Lantus 30 units subcutaneously at bedtime. 12.Humalog scale. 13.Atrovent and Xopenex t.i.d. 14.Losartan 100 mg p.o. daily. 15.Melatonin 5 mg at bedtime. 16.Glucophage 500 mg p.o. b.i.d. 17.Lopressor 100 mg b.i.d. 18.Replacement protocols. 19.Protonix 40 mg daily. 20.Actos 30 mg p.o. daily. 21.K-Dur 20 mEq replacement. 22.P.r.n. medication. 23.Vancomycin. PHYSICAL EXAM: Patient is alert, oriented x3. The pulse is 86, blood pressure 168/70, respiration 18, temperature 97.9, pulse ox 94% on room air. HEENT: Conjunctivae normal. Oral mucosa moist. NECK: No jugular venous distention. No carotid bruit. No lymph node enlargement. CARDIOVASCULAR: S1, S2 muffled. RESPIRATORY: Breath sounds diminished at the bases. A few scattered rhonchi and crackles. ABDOMEN: Soft, nontender. No mass palpable. LEGS: No edema. No swelling. NERVOUS SYSTEM: Higher functions as mentioned earlier. Moves all 4 limbs. No focal motor or sensory deficit. LYMPHATICS: No lymph node palpable in neck, axillae or groin. SKIN: No ulcer, rash, bleeding. LABS AT THIS TIME: WBC 4.7, hemoglobin 11.1, sodium 137, potassium 3.3. Accu-Cheks are noted. ASSESSMENT: 1. Acute right lower lobe pneumonia, possibly community-acquired, with sepsis, present on admission, along with acute hypoxic respiratory failure. 2. Lactic acidosis secondary to sepsis, present on admission. 3. Hyponatremia, likely hypo-osmolar. 4. Troponin leak, possibly from hemodynamic mismatch from sepsis. 5. Coronary artery disease with stent and coronary artery bypass grafting. 6. Diabetes mellitus, type 2. 7. Gastroesophageal reflux disease. 8. Hyperlipidemia. 9. Essential hypertension. 10.History of degenerative joint disease. RECOMMENDATIONS AND DISCUSSION: I recommend to continue current medication, continue symptomatic treatment. Continue the broad-spectrum IV antibiotics. Continue the rest of the medications. DVT prophylaxis. Resume the home medications. Monitor blood sugars closely. Monitor blood pressure closely. Will initiate clonidine to the current regimen. Increase ambulation. Guarded prognosis because of the complex medical issues. Discussed with the patient. Discussed with staff. Further recommendations to follow. MMDIONIL / KAMARN: [id number] /
[2016-11-19] MEDS: POTASSIUM CHLORIDE 10 MEQ, LIDOCAINE 2% INJ 10 MG in SODIUM CHLORIDE 0.9% 100 ML IV SCH ×2 (18:43→20:34)
[2016-11-19] MEDS: POTASSIUM CHLORIDE ER 20 MEQ TAB.ER PO SCH ×2 (18:43→20:07)
[2016-11-19 20:37] LABS: Glucose,Whole Blood 222 mg/dL (75-99)
[2016-11-19] MEDS: INSULIN GLARGINE 100 UNIT/ML 10 ML VIAL SQ SCH (20:39)
[2016-11-19] MEDS: MELATONIN 5 MG TABLET PO SCH (20:44)
[2016-11-19] MEDS ORDERED: cloNIDine HCL 0.1 MG TAB PO SCH (21:00)
[2016-11-20] MEDS ORDERED: VANCOMYCIN TROUGH DUE 1 EACH MISC MISCELLANE ONE (05:00)
[2016-11-20 05:38] LABS: Anion Gap 12 mmol/L; Blood Urea Nitrogen 6 mg/dL (9-20); Carbon Dioxide 22 mmol/L (22-30); Chloride 106 mmol/L (98-107); Glucose 136 mg/dL (74-99); Non-African American GFR(MDRD) >60 (>60 ml/min/1.73 sqM); Potassium 3.3 mmol/L (3.5-5.1); Sodium 140 mmol/L (137-145)
[2016-11-20] MEDS: VANCOMYCIN 1,250 MG in SODIUM CHLORIDE 0.9% 250 ML IVPB SCH (05:58)
[2016-11-20 08:01] LABS: Glucose,Whole Blood 131 mg/dL (75-99)
[2016-11-20] MEDS: PIOGLITAZONE 30 MG TAB PO SCH (08:53)
[2016-11-20] MEDS: metFORMIN 500 MG TAB PO SCH ×2 (08:53→20:29)
[2016-11-20] MEDS: DILTIAZEM CD 180 MG CAP.ER.24H PO SCH (08:54)
[2016-11-20] MEDS: LOSARTAN 50 MG TAB PO SCH (08:54)
[2016-11-20] MEDS: ENOXAPARIN 40 MG/0.4 ML SYRINGE SQ SCH (08:54)
[2016-11-20] MEDS: ATORVASTATIN 40 MG TAB PO SCH (08:54)
[2016-11-20] MEDS: CLOPIDOGREL 75 MG TAB PO SCH (08:54)
[2016-11-20] MEDS: ASPIRIN 325 MG TAB PO SCH (08:54)
[2016-11-20] MEDS: cloNIDine HCL 0.1 MG TAB PO SCH ×2 (08:54→20:29)
[2016-11-20] MEDS: INSULIN LISPRO (humaLOG) 300 UNIT/3 ML VIAL SQ SCH ×4 (08:55→20:29)
[2016-11-20] MEDS: METOPROLOL TARTRATE 50 MG TAB PO SCH ×2 (08:55→18:02)
[2016-11-20] MEDS: PANTOPRAZOLE 40 MG TABLET PO SCH (08:55)
[2016-11-20] MEDS: IPRATROPIUM 0.5 MG/2.5 ML NEBU INHALATION SCH ×3 (09:00→21:33)
[2016-11-20] MEDS: BUDESONIDE 1 MG/2 ML NEBU INHALATION SCH ×2 (09:00→21:30)
[2016-11-20] MEDS: LEVALBUTEROL NEB (CONC) 1.25 MG/0.5 ML AMP INHALATION SCH ×2 (09:00→12:53)
[2016-11-20] MEDS: FORMOTEROL FUMARATE 20 MCG/2 ML NEBU INHALATION SCH ×2 (09:00→21:30)
[2016-11-20] MEDS: PIPERACILLIN-TAZOBACTAM 3.375 GM in DEXTROSE/WATER 1 50ML.BAG IVPB SCH ×3 (09:58→23:13)
[2016-11-20 11:57] LABS: Glucose,Whole Blood 263 mg/dL (75-99)
--- NOTE | 2016-11-20 12:41 | P.PN ---
Subjective Principal diagnosis: Right lower lobe pneumonia This is a pleasant 56-year-old white male with history of multiple medical problems including coronary artery disease, diabetes mellitus II, GERD, hyperlipidemia, hypertension, osteoarthritis with 1 week history of high fevers , shortness of breath, cough, decreased appetite and weakness. The patient was treated by his PCP with oral amoxicillin with no improvement in his symptoms. Patient was becoming progressively weak, with continued chest congestion and fever, started experiencing falls at home. At which time he was brought in by his to the emergency department for evaluation and was subsequently admitted. Patient was initially given Levaquin which was later switched to Rocephin. Chest x-ray from 11/16/2016 show persistence right basilar infiltrate with right pleural effusion and patchy left basilar atelectasis and/ or infiltrate. On 11/15/2016 plasma lactic acid was elevated at 2.1 for which patient received 3 L of normal saline in fluid boluses. Blood cultures showed no growth after 24 hours, sputum culture was contaminated with oral paulina. Today we are asked to see the patient in consult in regards to his worsening respiratory status, tachypnea, fever of 103F and possible sepsis. Patient seen sitting up in bed, dyspneic with normal conversation, tachypneic at 28 breaths per minute, oxygen saturations of 90% on 4 L per nasal cannula. Lung sounds are coarse inspiratory crackles over left lower lobe, diminished air entry. Febrile, appears acutely ill. is at the bedside, provided much the history as the patient has difficulty speaking in full sentences. Blood gases were obtained and reviewed, pH is 7.5, pCO2 is 18.7, pO2 is 57 on 4 L of oxygen. Patient has primary respiratory alkalosis, hypoxic respiratory failure secondary to right lower lobe pneumonia. Patient will placed on 100% nonrebreather, antibiotic coverage will be switched to Zosyn, and patient will be transferred to the intensive care for further management. Blood and sputum cultures will be obtained. Will obtain CT of chest without contrast to rule out the possibility of right lower lobe empyema. Reevaluated today on 11/17/2016, patient seems to be doing significantly better compared to how he was yesterday. Less shortness of breath, no fever, no chills , no wheezing. CT of the chest failed to show any empyema, however there was a significant consolidation and air bronchogram noted in the right lower lobe consistent with pneumonia. Labs today were all reviewed he has WBC count of 5.8 hemoglobin is 11.3. Sodium is 127 potassium of 3.4 being corrected as per protocol. Cultures so far are nondiagnostic, and negative including blood and urine and sputum. Clinically however there has been a dramatic improvement noted. Patient seems to be comfortable, he is presently on 3 L nasal cannula. On 11/18/2016 the patient is seen in follow-up, continues to improve. Denies chest congestion, wheezing, or significant sputum production. No febrile episodes noted. Hemodynamically stable. His main complaint today is lack of energy. Lung sounds are clear. Diminished at the bases. No rhonchi, no rales , no wheezing. Continues on 4 L oxygen per nasal cannula with oxygen saturations around 91-95%. Cultures have been reviewed and are negative so far. Patient continues on vancomycin and Zosyn for antibiotic coverage. On DuoNeb nebulizers treatments. Increase activity as tolerated. On 11/19/2016 patient continues to improve. He seems to be less fatigued today. Sitting up in bed, denies shortness of breath, chills or chest congestion. Oxygen had been weaned down to 3 L per nasal cannula with saturations around 94%. Cultures have been negative so far. Continues on a combination of vancomycin and Zosyn for antibiotic coverage. On DuoNeb nebulizer treatments. Patient seems to be comfortable. No febrile episodes through the night. He states he feels clammy today but overall he is feeling better. Lung sounds few respiratory Rales over right lower lobe. The patient is seen again today 11/20/2016 in follow-up on the regular medical floor. He is awake and alert in no acute distress. He states he is breathing easier today as compared to yesterday. He continues with a loose nonproductive cough. He is maintaining O2 saturations in the low 90s on room air. He has been afebrile. Blood, urine and sputum cultures reveal no growth. Objective - Vital Signs Vital signs: Vital Signs Temp 97.1 F L 11/20/16 07:00 Pulse 99 11/20/16 09:20 Resp 18 11/20/16 07:00 BP 160/94 11/20/16 07:00 Pulse Ox 93 L 11/20/16 07:00 Intake & Output 11/19/16 11/20/16 11/20/16 18:59 06:59 18:59 Intake Total 350 1080 Output Total 1000 Balance 350 80 Weight 98.7 kg Intake: Intake, IV Titration 350 Amount Piperacillin-Tazobactam 3 100 .375 gm In Dextrose/Water 1 50ml.bag @ 12.5 mls/hr IVPB Q8HR [facility] Rx#: [id number] Vancomycin 1,250 mg In 250 Sodium Chloride 0.9% 250 ml @ 125 mls/hr IVPB Q8HR @0600,1400,2200 [facility] Rx#: [id number] Oral 1080 Output: Urine 1000 Other: Voiding Method Toilet Toilet Toilet # Voids 3 - Exam GENERAL EXAM: Alert, active, comfortable in no apparent distress. HEAD: Normocephalic. EYES: Normal reaction of pupils, equal size. NOSE: Clear with pink turbinates. THROAT: No erythema or exudates. NECK: No masses, no JVD. CHEST: No chest wall deformity. LUNGS: Equal air entry with rhonchi in the right lung base. CVS: S1 and S2 normal with no audible murmurs, regular rhythm. ABDOMEN: No hepatosplenomegaly, normal bowel sounds, no guarding or rigidity. SPINE: No scoliosis or deformity SKIN: No rashes CENTRAL NERVOUS SYSTEM: No focal deficits, tone is normal in all 4 extremities. Extremities: There is no significant peripheral edema. No clubbing, no cyanosis. Peripheral pulses are intact. - Labs CBC & Chem 7: 11/19/16 08:01 11/20/16 05:13 Labs: Abnormal Lab Results - Last 24 Hours (Table) 11/19/16 11/19/16 11/20/16 Range/Units 17:03 20:35 05:13 Potassium 3.3 L (3.5-5.1) mmol/L BUN 6 L (9-20) mg/dL Glucose 136 H (74-99) mg/dL POC Glucose (mg/dL) 191 H 222 H (75-99) mg/dL Calcium 8.0 L (8.4-10.2) mg/dL 11/20/16 11/20/16 Range/Units 07:38 11:35 Potassium (3.5-5.1) mmol/L BUN (9-20) mg/dL Glucose (74-99) mg/dL POC Glucose (mg/dL) 131 H 263 H (75-99) mg/dL Calcium (8.4-10.2) mg/dL Microbiology - Last 24 Hours (Table) 11/15/16 09:00 Blood Culture - Preliminary Blood No Growth after 120 hours 11/15/16 13:24 Blood Culture - Preliminary Blood No Growth after 96 hours 11/16/16 13:09 Blood Culture - Preliminary Blood No Growth after 72 hours 11/16/16 13:28 Blood Culture - Preliminary Blood No Growth after 72 hours 11/17/16 04:45 Gram Stain - Final Sputum Sputum Culture - Final Assessment and Plan Plan: Assessment: #1. Acute community-acquired right lower lobe pneumonia. #2. Sepsis due to pneumonia, fever, lactic acidosis present on admission #3. Acute hypoxic respiratory failure secondary to pneumonia #4. Rule out right lower lobe empyema, this was ruled out based on the CT of the chest done on 11/16/2016 #5. Hyponatremia, hypoosmolar from excessive fluid intake. #6. Severe generalized weakness, gait dysfunction and falls #7. Troponin leak likely from septic etiology #8. Diabetes mellitus type 2 #9. CAD, history of coronary artery bypass grafting #10. Hyperlipidemia #11. Essential hypertension #12. Osteoarthritis Plan: The patient was seen and evaluated by Dr. Quezada. He is improved today as compared to yesterday. We'll continue with his current treatment including antibiotics in the form of Zosyn. We'll increase his activity as tolerated. We 'll repeat a chest x-ray in the a.m. We'll continue to follow. I have completed a history and physical examination on the above patient. His lungs continue with few scattered rhonchi more so on the right lung base I agree with the note as dictated by my nurse practitioner, Jazmyne Gonzáles. We have reviewed and discussed the assessment and plan of care.
[2016-11-20] MEDS: POTASSIUM CHLORIDE ER 20 MEQ TAB.ER PO SCH ×2 (15:13→16:07)
[2016-11-20] MEDS: ALBUTEROL NEBULIZED 2.5 MG/3 ML INHALATION SCH ×2 (16:50→21:30)
[2016-11-20 17:24] LABS: Glucose,Whole Blood 194 mg/dL (75-99)
[2016-11-20] MEDS ORDERED: VANCOMYCIN 1,500 MG in SODIUM CHLORIDE 0.9% 250 ML IVPB SCH (18:00)
--- NOTE | 2016-11-20 18:18 | PN ---
PROGRESS NOTE DATE OF SERVICE: 11/20/2016 INTERVAL HISTORY: This 56-year-old gentleman who was admitted with acute right lower lobe pneumonia possibly community acquired is being closely monitored. Patient on broad IV antibiotics. No chest pain. No palpitations. No fever. Pulmonology following the patient closely. EXAM: Alert, oriented x3. Pulse 83, blood pressure 150/74, respiration rate 18, temperature 97.6, pulse ox 92% on 2 L. HEENT: Conjunctivae normal. Neck: No jugular venous distention. Cardiovascular: S1, S2 muffled. Respirations: Breath sounds diminished at the bases. A few scattered rhonchi and crackles. Abdomen is soft, nontender. Legs are no focal deficits. LABORATORY DATA: WBC 4.6, hemoglobin 11.1. ASSESSMENT: 1. Acute right lower lobe pneumonia possibly community acquired with sepsis present on admission along with acute hypoxic respiratory failure. 2. Lactic acidosis secondary to sepsis, present on admission. 3. Hyponatremia likely hypoosmolar. 4. Troponin leak, possibly from hemodynamic. 5. Sepsis. 6. Coronary artery disease, stent and coronary artery bypass grafting. 7. Diabetes type 2. 8. Gastroesophageal reflux disease. 9. Hyperlipidemia. 10.Essential hypertension. 11.History of degenerative joint disease. RECOMMENDATIONS AND DISCUSSION: Continue current medications, continue current management. Symptomatic treatment. Otherwise, continue broad IV antibiotics. Closely follow with Dr. Quezada. Guarded prognosis. Ensure oxygenation. Further recommendations to follow. MMODL / IJN: [id number] / MTDD
[2016-11-20] MEDS ORDERED: POTASSIUM CHLORIDE ER 20 MEQ TAB.ER PO SCH (19:00)
[2016-11-20 20:22] LABS: Glucose,Whole Blood 284 mg/dL (75-99)
[2016-11-20] MEDS: INSULIN GLARGINE 100 UNIT/ML 10 ML VIAL SQ SCH (20:28)
[2016-11-20] MEDS: MELATONIN 5 MG TABLET PO SCH (20:29)
[2016-11-21 07:05] LABS: Basophils % (A) 0 %; CH 28.9; CHCM 32.1; Eosinophils # (A) 0.3 k/uL (0-0.7); Eosinophils % (A) 4 %; HCT 32.4 % (39.0-53.0); HDW 2.61; HGB 10.5 gm/dL (13.0-17.5); Luc # (Auto) 0.15; Luc % (Auto) 3; Lymphocytes # (A) 0.9 k/uL (1.0-4.8); Lymphocytes % (A) 15 %; MCH 29.3 pg (25.0-35.0); MCHC 32.3 g/dL (31.0-37.0); MCV 90.7 fL (80.0-100.0); Mean Platelet Volume 6.6; Monocytes # (A) 0.3 k/uL (0-1.0); Monocytes % (A) 5 %; Neutrophils # (A) 4.2 k/uL (1.3-7.7); Neutrophils % (A) 73 %; RBC 3.58 m/uL (4.30-5.90); RDW 14.6 % (11.5-15.5); WBC 5.7 k/uL (3.8-10.6); WBC (Perox) 5.87
--- NOTE | 2016-11-21 07:06 | XR ---
EXAMINATION TYPE: XR chest 2V DATE OF EXAM: 11/21/2016 HISTORY: Follow up RLL infiltrate. REFERENCE: Previous study dated 11/18/2016. FINDINGS: There has been a previous midline sternotomy. There has been a previous ACDF of the lower c ervical spine. The heart is upper limits of normal in size. There is bibasilar airspace disease, worse on the right than the left. This has improved slightly from previous. Pleural spaces appear clear. IMPRESSION: 1. BIBASILAR AIRSPACE DISEASE. 2. BORDERLINE CARDIOMEGALY. 3. SOME IMPROVEMENT IN RIGHT BASILAR AIRSPACE DISEASE.
[2016-11-21] MEDS: FORMOTEROL FUMARATE 20 MCG/2 ML NEBU INHALATION SCH ×2 (07:21→21:19)
[2016-11-21] MEDS: ALBUTEROL NEBULIZED 2.5 MG/3 ML INHALATION SCH ×4 (07:21→21:19)
[2016-11-21] MEDS: BUDESONIDE 1 MG/2 ML NEBU INHALATION SCH ×2 (07:21→21:19)
[2016-11-21 07:24] LABS: Anion Gap 11 mmol/L; Blood Urea Nitrogen 7 mg/dL (9-20); Calcium 8.4 mg/dL (8.4-10.2); Carbon Dioxide 23 mmol/L (22-30); Chloride 108 mmol/L (98-107); Glucose 141 mg/dL (74-99); Non-African American GFR(MDRD) >60 (>60 ml/min/1.73 sqM); Potassium 3.6 mmol/L (3.5-5.1); Sodium 142 mmol/L (137-145)
[2016-11-21] MEDS: IPRATROPIUM 0.5 MG/2.5 ML NEBU INHALATION SCH ×3 (07:40→21:19)
[2016-11-21] MEDS: PIOGLITAZONE 30 MG TAB PO SCH (09:04)
[2016-11-21] MEDS: LOSARTAN 50 MG TAB PO SCH (09:04)
[2016-11-21] MEDS: PIPERACILLIN-TAZOBACTAM 3.375 GM in DEXTROSE/WATER 1 50ML.BAG IVPB SCH ×2 (09:04→16:54)
[2016-11-21] MEDS: metFORMIN 500 MG TAB PO SCH ×2 (09:04→21:09)
[2016-11-21] MEDS: CLOPIDOGREL 75 MG TAB PO SCH (09:05)
[2016-11-21] MEDS: cloNIDine HCL 0.1 MG TAB PO SCH ×2 (09:05→21:09)
[2016-11-21] MEDS: ATORVASTATIN 40 MG TAB PO SCH (09:05)
[2016-11-21] MEDS: PANTOPRAZOLE 40 MG TABLET PO SCH (09:05)
[2016-11-21] MEDS: METOPROLOL TARTRATE 50 MG TAB PO SCH ×2 (09:05→17:51)
[2016-11-21] MEDS: ASPIRIN 325 MG TAB PO SCH (09:05)
[2016-11-21] MEDS: INSULIN LISPRO (humaLOG) 300 UNIT/3 ML VIAL SQ SCH ×4 (09:05→21:09)
[2016-11-21] MEDS: DILTIAZEM CD 180 MG CAP.ER.24H PO SCH (09:05)
[2016-11-21] MEDS: ENOXAPARIN 40 MG/0.4 ML SYRINGE SQ SCH (09:05)
[2016-11-21 11:30] LABS: Glucose,Whole Blood 155 mg/dL (75-99)
[2016-11-21] MEDS ORDERED: POTASSIUM CHLORIDE ER 20 MEQ TAB.ER PO SCH (12:00)
--- NOTE | 2016-11-21 12:42 | P.PN ---
Subjective Principal diagnosis: Acute community-acquired the right lower lobe pneumonia and sepsis This is a pleasant 56-year-old white male with history of multiple medical problems including coronary artery disease, diabetes mellitus II, GERD, hyperlipidemia, hypertension, osteoarthritis with 1 week history of high fevers , shortness of breath, cough, decreased appetite and weakness. The patient was treated by his PCP with oral amoxicillin with no improvement in his symptoms. Patient was becoming progressively weak, with continued chest congestion and fever, started experiencing falls at home. At which time he was brought in by his to the emergency department for evaluation and was subsequently admitted. Patient was initially given Levaquin which was later switched to Rocephin. Chest x-ray from 11/16/2016 show persistence right basilar infiltrate with right pleural effusion and patchy left basilar atelectasis and/ or infiltrate. On 11/15/2016 plasma lactic acid was elevated at 2.1 for which patient received 3 L of normal saline in fluid boluses. Blood cultures showed no growth after 24 hours, sputum culture was contaminated with oral paulina. Today we are asked to see the patient in consult in regards to his worsening respiratory status, tachypnea, fever of 103F and possible sepsis. Patient seen sitting up in bed, dyspneic with normal conversation, tachypneic at 28 breaths per minute, oxygen saturations of 90% on 4 L per nasal cannula. Lung sounds are coarse inspiratory crackles over left lower lobe, diminished air entry. Febrile, appears acutely ill. is at the bedside, provided much the history as the patient has difficulty speaking in full sentences. Blood gases were obtained and reviewed, pH is 7.5, pCO2 is 18.7, pO2 is 57 on 4 L of oxygen. Patient has primary respiratory alkalosis, hypoxic respiratory failure secondary to right lower lobe pneumonia. Patient will placed on 100% nonrebreather, antibiotic coverage will be switched to Zosyn, and patient will be transferred to the intensive care for further management. Blood and sputum cultures will be obtained. Will obtain CT of chest without contrast to rule out the possibility of right lower lobe empyema. Reevaluated today on 11/17/2016, patient seems to be doing significantly better compared to how he was yesterday. Less shortness of breath, no fever, no chills , no wheezing. CT of the chest failed to show any empyema, however there was a significant consolidation and air bronchogram noted in the right lower lobe consistent with pneumonia. Labs today were all reviewed he has WBC count of 5.8 hemoglobin is 11.3. Sodium is 127 potassium of 3.4 being corrected as per protocol. Cultures so far are nondiagnostic, and negative including blood and urine and sputum. Clinically however there has been a dramatic improvement noted. Patient seems to be comfortable, he is presently on 3 L nasal cannula. On 11/18/2016 the patient is seen in follow-up, continues to improve. Denies chest congestion, wheezing, or significant sputum production. No febrile episodes noted. Hemodynamically stable. His main complaint today is lack of energy. Lung sounds are clear. Diminished at the bases. No rhonchi, no rales , no wheezing. Continues on 4 L oxygen per nasal cannula with oxygen saturations around 91-95%. Cultures have been reviewed and are negative so far. Patient continues on vancomycin and Zosyn for antibiotic coverage. On DuoNeb nebulizers treatments. Increase activity as tolerated. On 11/19/2016 patient continues to improve. He seems to be less fatigued today. Sitting up in bed, denies shortness of breath, chills or chest congestion. Oxygen had been weaned down to 3 L per nasal cannula with saturations around 94%. Cultures have been negative so far. Continues on a combination of vancomycin and Zosyn for antibiotic coverage. On DuoNeb nebulizer treatments. Patient seems to be comfortable. No febrile episodes through the night. He states he feels clammy today but overall he is feeling better. Lung sounds few respiratory Rales over right lower lobe. The patient is seen again today 11/20/2016 in follow-up on the regular medical floor. He is awake and alert in no acute distress. He states he is breathing easier today as compared to yesterday. He continues with a loose nonproductive cough. He is maintaining O2 saturations in the low 90s on room air. He has been afebrile. Blood, urine and sputum cultures reveal no growth. Patient was reevaluated today on 11/21/2016, awake alert, in no distress, feeling much better, breathing a lot easier, continues to have a bit of a loose nonproductive cough. O2 saturations are in the low 90s on room air, patient's workup and cultures are nondiagnostic. I plan to repeat his chest x-ray in a.m. , his chest x-ray today showed definite improvement in the right lower lobe pneumonia but not completely resolved. I plan to arrange for discharge planning in the next 24 hours. CBC is normal basic metabolic profile is normal. Objective - Vital Signs Vital signs: Vital Signs Temp 97.6 F 11/20/16 23:00 Pulse 88 11/21/16 11:01 Resp 18 11/21/16 07:00 BP 191/90 11/21/16 07:00 Pulse Ox 94 L 11/21/16 07:00 Intake & Output 11/20/16 11/21/16 11/21/16 18:59 06:59 18:59 Intake Total 250 Output Total 350 Balance -100 Intake: Intake, IV Titration 50 Amount Piperacillin-Tazobactam 3 50 .375 gm In Dextrose/Water 1 50ml.bag @ 12.5 mls/hr IVPB Q8HR ELIDIA Rx#: [id number] Oral 200 Output: Urine 350 Other: Voiding Method Toilet Toilet Toilet # Voids 3 1 # Bowel Movements 1 - Exam GENERAL EXAM: Alert, active, comfortable in no apparent distress. HEAD: Normocephalic. EYES: Normal reaction of pupils, equal size. NOSE: Clear with pink turbinates. THROAT: No erythema or exudates. NECK: No masses, no JVD. CHEST: No chest wall deformity. LUNGS: Equal air entry with rhonchi in the right lung base. CVS: S1 and S2 normal with no audible murmurs, regular rhythm. ABDOMEN: No hepatosplenomegaly, normal bowel sounds, no guarding or rigidity. SPINE: No scoliosis or deformity SKIN: No rashes CENTRAL NERVOUS SYSTEM: No focal deficits, tone is normal in all 4 extremities. Extremities: There is no significant peripheral edema. No clubbing, no cyanosis. Peripheral pulses are intact. - Labs CBC & Chem 7: 11/21/16 06:46 11/21/16 06:46 Labs: Abnormal Lab Results - Last 24 Hours (Table) 11/20/16 11/20/16 11/20/16 Range/Units 17:17 17:19 20:20 RBC (4.30-5.90) m/uL Hgb (13.0-17.5) gm/dL Hct (39.0-53.0) % Plt Count (150-450) k/uL Lymphocytes # (1.0-4.8) k/uL Potassium 3.4 L (3.5-5.1) mmol/L Chloride (98-107) mmol/L BUN (9-20) mg/dL Glucose (74-99) mg/dL POC Glucose (mg/dL) 194 H 284 H (75-99) mg/dL 11/21/16 11/21/16 11/21/16 Range/Units 06:46 06:46 11:18 RBC 3.58 L (4.30-5.90) m/uL Hgb 10.5 L (13.0-17.5) gm/dL Hct 32.4 L (39.0-53.0) % Plt Count 599 H (150-450) k/uL Lymphocytes # 0.9 L (1.0-4.8) k/uL Potassium (3.5-5.1) mmol/L Chloride 108 H (98-107) mmol/L BUN 7 L (9-20) mg/dL Glucose 141 H (74-99) mg/dL POC Glucose (mg/dL) 155 H (75-99) mg/dL Microbiology - Last 24 Hours (Table) 11/15/16 09:00 Blood Culture - Final Blood No Growth after 144 hours 11/15/16 13:24 Blood Culture - Preliminary Blood No Growth after 120 hours 11/16/16 13:09 Blood Culture - Preliminary Blood No Growth after 96 hours 11/16/16 13:28 Blood Culture - Preliminary Blood No Growth after 96 hours Assessment and Plan Plan: #1. Acute community-acquired right lower lobe pneumonia. #2. Sepsis due to pneumonia, fever, lactic acidosis present on admission #3. Acute hypoxic respiratory failure secondary to pneumonia #4. Rule out right lower lobe empyema, this was ruled out based on the CT of the chest done on 11/16/2016 #5. Hyponatremia, hypoosmolar from excessive fluid intake. #6. Severe generalized weakness, gait dysfunction and falls #7. Troponin leak likely from septic etiology #8. Diabetes mellitus type 2 #9. CAD, history of coronary artery bypass grafting #10. Hyperlipidemia #11. Essential hypertension #12. Osteoarthritis Recommendation: Continue present treatment plan, repeat chest x-ray in a.m., and if the patient remains doing well, consider discharge planning in a.m. Follow-up with me on outpatient basis. Patient could be discharged home on one week of Levaquin. Time with Patient: Less than 30
[2016-11-21 17:46] LABS: Glucose,Whole Blood 214 mg/dL (75-99)
[2016-11-21 21:03] LABS: Glucose,Whole Blood 245 mg/dL (75-99)
[2016-11-21] MEDS: INSULIN GLARGINE 100 UNIT/ML 10 ML VIAL SQ SCH (21:08)
[2016-11-21] MEDS: MELATONIN 5 MG TABLET PO SCH (21:09)
[2016-11-22] MEDS: PIPERACILLIN-TAZOBACTAM 3.375 GM in DEXTROSE/WATER 1 50ML.BAG IVPB SCH ×2 (00:03→07:57)
[2016-11-22 07:17] LABS: Glucose,Whole Blood 127 mg/dL (75-99)
[2016-11-22 07:18] LABS: Glucose,Whole Blood 162 mg/dL (75-99)
[2016-11-22] MEDS: BUDESONIDE 1 MG/2 ML NEBU INHALATION SCH (07:29)
[2016-11-22] MEDS: IPRATROPIUM 0.5 MG/2.5 ML NEBU INHALATION SCH ×2 (07:29→11:39)
[2016-11-22] MEDS: ALBUTEROL NEBULIZED 2.5 MG/3 ML INHALATION SCH ×3 (07:29→15:45)
[2016-11-22] MEDS: FORMOTEROL FUMARATE 20 MCG/2 ML NEBU INHALATION SCH (07:30)
[2016-11-22 07:35] LABS: Basophils % (A) 1 %; Eosinophils # (A) 0.2 k/uL (0-0.7); Eosinophils % (A) 3 %; HCT 36.4 % (39.0-53.0); HDW 2.53; HGB 11.4 gm/dL (13.0-17.5); Luc # (Auto) 0.18; Luc % (Auto) 3; Lymphocytes # (A) 1.1 k/uL (1.0-4.8); Lymphocytes % (A) 16 %; MCH 28.6 pg (25.0-35.0); MCHC 31.3 g/dL (31.0-37.0); MCV 91.1 fL (80.0-100.0); Mean Platelet Volume 6.3; Monocytes # (A) 0.3 k/uL (0-1.0); Monocytes % (A) 5 %; Neutrophils # (A) 4.9 k/uL (1.3-7.7); Neutrophils % (A) 73 %; RBC 3.99 m/uL (4.30-5.90); RDW 14.6 % (11.5-15.5); WBC 6.7 k/uL (3.8-10.6)
[2016-11-22 07:47] LABS: Anion Gap 11 mmol/L; Blood Urea Nitrogen 6 mg/dL (9-20); Calcium 8.7 mg/dL (8.4-10.2); Carbon Dioxide 24 mmol/L (22-30); Chloride 107 mmol/L (98-107); Glucose 171 mg/dL (74-99); Non-African American GFR(MDRD) >60 (>60 ml/min/1.73 sqM); Sodium 142 mmol/L (137-145)
[2016-11-22] MEDS: METOPROLOL TARTRATE 50 MG TAB PO SCH (07:58)
[2016-11-22] MEDS: PIOGLITAZONE 30 MG TAB PO SCH (07:58)
[2016-11-22] MEDS: PANTOPRAZOLE 40 MG TABLET PO SCH (07:58)
[2016-11-22] MEDS: CLOPIDOGREL 75 MG TAB PO SCH (07:59)
[2016-11-22] MEDS: LOSARTAN 50 MG TAB PO SCH (07:59)
[2016-11-22] MEDS: cloNIDine HCL 0.1 MG TAB PO SCH (07:59)
[2016-11-22] MEDS: INSULIN LISPRO (humaLOG) 300 UNIT/3 ML VIAL SQ SCH ×2 (07:59→13:10)
[2016-11-22] MEDS: DILTIAZEM CD 180 MG CAP.ER.24H PO SCH (07:59)
[2016-11-22] MEDS: ENOXAPARIN 40 MG/0.4 ML SYRINGE SQ SCH (07:59)
[2016-11-22] MEDS: metFORMIN 500 MG TAB PO SCH (07:59)
[2016-11-22] MEDS: ASPIRIN 325 MG TAB PO SCH (07:59)
[2016-11-22] MEDS: ATORVASTATIN 40 MG TAB PO SCH (07:59)
[2016-11-22 08:01] VITALS: RESP 20
--- NOTE | 2016-11-22 08:35 | XR ---
EXAMINATION TYPE: XR chest 2V DATE OF EXAM: 11/22/2016 COMPARISON: 11/21/16 HISTORY: Shortness of breath TECHNIQUE: Frontal and lateral views of the chest are obtained. FINDINGS: Scattered senescent parenchymal changes noted. Persistent right lower lobe infiltrate without significant change. Heart size is stable. Mediastinal structures are stable and grossly unremarkable. No evidence for hilar prominence. Degenerative changes dorsal spine. IMPRESSION: 1. Persistent right lower lobe infiltrate without significant change.
[2016-11-22 12:02] LABS: Glucose,Whole Blood 171 mg/dL (75-99)
[2016-11-22] MEDS ORDERED: METOPROLOL TARTRATE 50 MG TAB PO STA (13:57)
--- NOTE | 2016-11-22 14:18 | P.PN ---
Subjective Principal diagnosis: acute community-acquired pneumonia, right upper lobe and sepsis This is a pleasant 56-year-old white male with history of multiple medical problems including coronary artery disease, diabetes mellitus II, GERD, hyperlipidemia, hypertension, osteoarthritis with 1 week history of high fevers , shortness of breath, cough, decreased appetite and weakness. The patient was treated by his PCP with oral amoxicillin with no improvement in his symptoms. Patient was becoming progressively weak, with continued chest congestion and fever, started experiencing falls at home. At which time he was brought in by his to the emergency department for evaluation and was subsequently admitted. Patient was initially given Levaquin which was later switched to Rocephin. Chest x-ray from 11/16/2016 show persistence right basilar infiltrate with right pleural effusion and patchy left basilar atelectasis and/ or infiltrate. On 11/15/2016 plasma lactic acid was elevated at 2.1 for which patient received 3 L of normal saline in fluid boluses. Blood cultures showed no growth after 24 hours, sputum culture was contaminated with oral paulina. Today we are asked to see the patient in consult in regards to his worsening respiratory status, tachypnea, fever of 103F and possible sepsis. Patient seen sitting up in bed, dyspneic with normal conversation, tachypneic at 28 breaths per minute, oxygen saturations of 90% on 4 L per nasal cannula. Lung sounds are coarse inspiratory crackles over left lower lobe, diminished air entry. Febrile, appears acutely ill. is at the bedside, provided much the history as the patient has difficulty speaking in full sentences. Blood gases were obtained and reviewed, pH is 7.5, pCO2 is 18.7, pO2 is 57 on 4 L of oxygen. Patient has primary respiratory alkalosis, hypoxic respiratory failure secondary to right lower lobe pneumonia. Patient will placed on 100% nonrebreather, antibiotic coverage will be switched to Zosyn, and patient will be transferred to the intensive care for further management. Blood and sputum cultures will be obtained. Will obtain CT of chest without contrast to rule out the possibility of right lower lobe empyema. Reevaluated today on 11/17/2016, patient seems to be doing significantly better compared to how he was yesterday. Less shortness of breath, no fever, no chills , no wheezing. CT of the chest failed to show any empyema, however there was a significant consolidation and air bronchogram noted in the right lower lobe consistent with pneumonia. Labs today were all reviewed he has WBC count of 5.8 hemoglobin is 11.3. Sodium is 127 potassium of 3.4 being corrected as per protocol. Cultures so far are nondiagnostic, and negative including blood and urine and sputum. Clinically however there has been a dramatic improvement noted. Patient seems to be comfortable, he is presently on 3 L nasal cannula. On 11/18/2016 the patient is seen in follow-up, continues to improve. Denies chest congestion, wheezing, or significant sputum production. No febrile episodes noted. Hemodynamically stable. His main complaint today is lack of energy. Lung sounds are clear. Diminished at the bases. No rhonchi, no rales , no wheezing. Continues on 4 L oxygen per nasal cannula with oxygen saturations around 91-95%. Cultures have been reviewed and are negative so far. Patient continues on vancomycin and Zosyn for antibiotic coverage. On DuoNeb nebulizers treatments. Increase activity as tolerated. On 11/19/2016 patient continues to improve. He seems to be less fatigued today. Sitting up in bed, denies shortness of breath, chills or chest congestion. Oxygen had been weaned down to 3 L per nasal cannula with saturations around 94%. Cultures have been negative so far. Continues on a combination of vancomycin and Zosyn for antibiotic coverage. On DuoNeb nebulizer treatments. Patient seems to be comfortable. No febrile episodes through the night. He states he feels clammy today but overall he is feeling better. Lung sounds few respiratory Rales over right lower lobe. The patient is seen again today 11/20/2016 in follow-up on the regular medical floor. He is awake and alert in no acute distress. He states he is breathing easier today as compared to yesterday. He continues with a loose nonproductive cough. He is maintaining O2 saturations in the low 90s on room air. He has been afebrile. Blood, urine and sputum cultures reveal no growth. Patient was reevaluated today on 11/21/2016, awake alert, in no distress, feeling much better, breathing a lot easier, continues to have a bit of a loose nonproductive cough. O2 saturations are in the low 90s on room air, patient's workup and cultures are nondiagnostic. I plan to repeat his chest x-ray in a.m. , his chest x-ray today showed definite improvement in the right lower lobe pneumonia but not completely resolved. I plan to arrange for discharge planning in the next 24 hours. CBC is normal basic metabolic profile is normal. On 11/22/2016 patient continues to improve. Denies shortness of breath, wheezing or chest congestion. On room air with O2 saturations 92%. He states his energy level is much improved today. Lung sounds are clear, no wheezes no rhonchi. He has been afebrile. Chest x-ray from 11/22/2016 has been reviewed by Dr. Comer. It shows persistent right lower lobe infiltrate. Clinically patient continues to improve. Objective - Vital Signs Vital signs: Vital Signs Temp 98 F 11/22/16 07:00 Pulse 85 11/22/16 11:52 Resp 20 11/22/16 07:00 BP 160/78 11/22/16 12:48 Pulse Ox 91 L 11/22/16 07:00 Intake & Output 11/21/16 11/22/16 11/22/16 18:59 06:59 18:59 Intake Total 200 Output Total 900 Balance -700 Intake: Oral 200 Output: Urine 900 Uretheral (Olivo) 900 Other: Voiding Method Toilet Toilet Toilet # Voids 1 3 - Exam GENERAL EXAM: Alert, active, comfortable in no apparent distress, appears fatigued HEAD: Normocephalic. EYES: Normal reaction of pupils, equal size. NOSE: Clear with pink turbinates. THROAT: No erythema or exudates. NECK: No masses, no JVD. CHEST: No chest wall deformity. LUNGS: Equal air entry with no crackles, wheeze, rhonchi or dullness. CVS: S1 and S2 normal with no audible mumurs, regular rhythm. ABDOMEN: No hepatosplenomegaly, normal bowel sounds, no guarding or rigidity. SPINE: No scoliosis or deformity SKIN: No rashes CENTRAL NERVOUS SYSTEM: No focal deficits, tone is normal in all 4 extremities. - Labs CBC & Chem 7: 11/22/16 07:04 11/22/16 07:04 Labs: Abnormal Lab Results - Last 24 Hours (Table) 11/21/16 11/21/16 11/21/16 Range/Units 07:44 17:40 20:49 RBC (4.30-5.90) m/uL Hgb (13.0-17.5) gm/dL Hct (39.0-53.0) % Plt Count (150-450) k/uL BUN (9-20) mg/dL Glucose (74-99) mg/dL POC Glucose (mg/dL) 127 H 214 H 245 H (75-99) mg/dL 11/22/16 11/22/16 11/22/16 Range/Units 07:04 07:04 07:08 RBC 3.99 L (4.30-5.90) m/uL Hgb 11.4 L (13.0-17.5) gm/dL Hct 36.4 L (39.0-53.0) % Plt Count 714 H (150-450) k/uL BUN 6 L (9-20) mg/dL Glucose 171 H (74-99) mg/dL POC Glucose (mg/dL) 162 H (75-99) mg/dL 11/22/16 Range/Units 11:58 RBC (4.30-5.90) m/uL Hgb (13.0-17.5) gm/dL Hct (39.0-53.0) % Plt Count (150-450) k/uL BUN (9-20) mg/dL Glucose (74-99) mg/dL POC Glucose (mg/dL) 171 H (75-99) mg/dL Microbiology - Last 24 Hours (Table) 11/15/16 13:24 Blood Culture - Final Blood No Growth after 144 hours 11/16/16 13:09 Blood Culture - Preliminary Blood No Growth after 120 hours 11/16/16 13:28 Blood Culture - Preliminary Blood No Growth after 120 hours 11/15/16 09:00 Blood Culture - Final Blood No Growth after 144 hours Assessment and Plan Plan: Assessment: #1. acute community-acquired right lower lobe pneumonia. #2. Sepsis due to pneumonia, fever, lactic acidosis present on admission #3. Acute hypoxic respiratory failure secondary to pneumonia #4. Rule out right lower lobe empyema, this was ruled out based on the CT of the chest done on 11/16/2016 #5. Hyponatremia, hypoosmolar from excessive fluid intake. #6. Severe generalized weakness, gait dysfunction and falls #7. Troponin leak likely from septic etiology #8. Diabetes mellitus type 2 #9. CAD, history of coronary artery bypass grafting #10. Hyperlipidemia #11. Essential hypertension #12. Osteoarthritis Plan: Continue present treatment plan, patient is doing well, may be discharged home from pulmonary standpoint. Microbiology results have been reviewed and have been negative so far. Follow up with Dr. Quezada in 1-2. Patient can go home on Levaquin 750 mg for 7 more days. I performed a history & physical examination of the patient and discussed their management with my nurse practitioner, Charlene Portillo. I reviewed the nurse practitioner's note and agree with the documented findings and plan of care.
[2016-11-22 15:19] VITALS: PULSE 76; TEMP 97.7
[2016-11-22 15:39] VITALS: BP 164/88
[2016-11-22] MEDS ORDERED: METOPROLOL TARTRATE 50 MG TAB PO SCH (17:30)
--- NOTE | 2016-11-22 18:51 | P.DS ---
Providers Date of admission: 11/15/16 11:52 Expected date of discharge: 11/22/16 Attending physician: Jose Sandhu Consults: 11/16/16 11:09 Consult Physician Urgent Consulting Provider: Sheldon Quezada Consult Reason/Comments: SOB, pneumonia Do you want consulting provider notified?: Yes Primary care physician: [facility] Course: FINAL DIAGNOSES: -Acute hypoxic respiratory failure secondary to pneumonia -Right lower lobe pneumonia suspect gram-negative causing severe sepsis, present on admission including lactic acidosis. -Hyponatremia likely hypoosmolar from excessive fluid intake. Patient's solid intake is gone down. -Troponin leak probably from hemodynamic mismatch from sepsis not acute myocardial infarction. -Coronary artery repair history of stent and coronary artery bypass grafting. 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 -Gastroesophageal reflux disease. -Hyperlipidemia. -Essential hypertension. -Primary osteoarthritis in multiple joints bilateral. HOSPTIAL COURSE: 56-year-old male presented with fever chills nausea and not much of an appetite for the previous 5 days. Diagnostic imaging revealed an infiltrate. Admitted for pneumonia. Home medications initiated, consult to pulmonology placed., Antibiotics initiated. Patient developed acute hypoxic respiratory failure and was subsequently transferred to the ICU. Placed on a nonrebreather mask, breathing treatments provided. Condition continued to improve patient placed on nasal cannula with oxygen saturations between 91 and 95%. Subsequently transferred to 6 E. selective care antibiotic continued along with breathing treatments. Oxygen titrated completely off patient was subsequently transferred to regular medical floor continue to improve condition overall stabilized tolerating his diet ambulatory in the room and naqvi ways with no respiratory distress, last BM 11/21/2016. Patient's overall condition is improved and is stabilized and therefore is ready for discharge. PHYSICAL EXAM: CARDIOVASCULAR: First and second sounds noted no edema RESPIRATORY: Respiratory effort normal, lung sounds diminished bilaterally to the bases GI: Abdomen soft nontender liver and spleen not palpable PSYCHIATRY: Alert and oriented 3 mood and affect normal Patient was seen and examined by nurse practitioner Lindsey Arias in all elements of the case discussed with attending Dr. Sandhu DISPOSITION: Home to the care of his family Patient Condition at Discharge: Serious Plan - Discharge Summary New Discharge Prescriptions: New Diclofenac Sodium Gel [Voltaren Gel] 4 gm TOPICAL QID #1 tube Levofloxacin [Levaquin] 750 mg PO DAILY #7 tab Melatonin 5 mg PO HS tab Metoprolol Tartrate [Lopressor] 150 mg PO BID-W/MEALS #90 tab Continue Pioglitazone [Actos] 30 mg PO DAILY Insulin Glargine,Hum.rec.anlog [Lantus Solostar] 30 unit SQ HS Omeprazole [PriLOSEC] 20 mg PO AC-BRKFST Atorvastatin [Lipitor] 40 mg PO DAILY #30 tab Clopidogrel [Plavix] 75 mg PO DAILY #30 tab Diltiazem Cd [Cardizem CD] 180 mg PO DAILY #30 cap.er.24h Liraglutide [Victoza 3-Russ] 1.8 mg SQ DAILY metFORMIN HCL [Glucophage] 500 mg PO BID cloNIDine HCL [Catapres] 0.1 mg PO BID Losartan Potassium [Cozaar] 100 mg PO DAILY Discontinued Aspirin 325 mg PO DAILY #30 tab Metoprolol Tartrate [Lopressor] 100 mg PO AC-BID Discharge Medication List Insulin Glargine,Hum.rec.anlog [Lantus Solostar] 30 unit SQ HS 09/08/15 [History ] Omeprazole [PriLOSEC] 20 mg PO AC-BRKFST 09/08/15 [History] Pioglitazone [Actos] 30 mg PO DAILY 09/08/15 [History] Atorvastatin [Lipitor] 40 mg PO DAILY #30 tab 09/28/15 [Rx] Clopidogrel [Plavix] 75 mg PO DAILY #30 tab 09/28/15 [Rx] Diltiazem Cd [Cardizem CD] 180 mg PO DAILY #30 cap.er.24h 09/28/15 [Rx] Liraglutide [Victoza 3-Russ] 1.8 mg SQ DAILY 07/03/16 [History] Losartan Potassium [Cozaar] 100 mg PO DAILY 11/15/16 [History] cloNIDine HCL [Catapres] 0.1 mg PO BID 11/15/16 [History] metFORMIN HCL [Glucophage] 500 mg PO BID 11/15/16 [History] Diclofenac Sodium Gel [Voltaren Gel] 4 gm TOPICAL QID #1 tube 11/16/16 [Rx] Levofloxacin [Levaquin] 750 mg PO DAILY #7 tab 11/22/16 [Rx] Melatonin 5 mg PO HS tab 11/22/16 [Rx] Metoprolol Tartrate [Lopressor] 150 mg PO BID-W/MEALS #90 tab 11/22/16 [Rx] Follow up Appointment(s)/Referral(s): Sheldon Quezada MD [STAFF PHYSICIAN] - 11/30/16 9:45 am Ko Burton DO [Primary Care Provider] - 3 Days (Dr. Burton's office will call patient with an appointment date and time.) Ambulatory/Diagnostic Orders: Basic Metabolic Panel [LAB.AMB] Location: Determined By Patient Complete Blood Count w/diff [LAB.AMB] Location: Determined By Patient Patient Instructions/Handouts: Metoprolol (By mouth), Levofloxacin (By mouth), Diclofenac (On the skin), Dehydration (DC), Hyponatremia (DC), Fever in Adults ( GEN), Altered Mental Status (GEN) Discharge Disposition: HOME SELF-CARE
--- NOTE | 2016-11-23 08:30 | DS ---
DISCHARGE SUMMARY DATE OF SERVICE: 11/22/2016 ATTENDING NOTE: This patient was seen and examined by me. I discussed with my nurse practitioner, Ms. Arias. The patient doing much better. Up to the bathroom. Doing well on room air. Tolerating a diet. On examination, right basal crackles. Cleared by multiple consultants to go home. Care was discussed with the patient. The patient to complete 7 days of Levaquin. Questions were answered. Blood pressure is running high. Hence, Lopressor has been increased to 150 twice a day today. Blood pressure is down to 160 systolic. Follow up is arranged. Discharge planning and discussion more than 35 minutes. MMODL / IJN: [id number] /
--- NOTE | 2016-11-23 19:18 | PN ---
PROGRESS NOTE DATE OF SERVICE: 11/21/2016 This 56-year-old gentleman who was admitted with acute right lung pneumonia is being closely monitored. Patient is on broad-spectrum IV antibiotics. No chest pain. No palpitations. No fever. EXAM: Alert and oriented x3. Vitals are noted, stable. HEENT: Conjunctivae normal. Oral mucosa moist. NECK: No jugular venous distention. No carotid bruits. No lymph node enlargement. CARDIOVASCULAR SYSTEM: S1, S2 muffled. No S3. No S4. RESPIRATORY: Breath sounds diminished in the bases. A few scattered rhonchi and crackles, the right more than the left. ABDOMEN: Soft, nontender. LEGS: No edema. NERVOUS SYSTEM: Nonfocal. LABS: Reviewed. ASSESSMENT: 1. Acute right lower lobe pneumonia, possibly gram-negative with sepsis present on admission along with acute hypoxic respiratory failure. 2. Lactic acid secondary to sepsis present on admission. 3. Hyponatremia, likely hypo-osmolar. 4. Troponin leak, possibly from hemodynamics changes. 5. Sepsis. 6. Coronary artery disease, coronary artery bypass graft, stent. 7. Diabetes mellitus type 2. 8. Gastroesophageal reflux disease. 9. Hyperlipidemia. 10.Hypertension. 11.History of degenerative joint disease. RECOMMENDATIONS AND DISCUSSION: Recommend to continue current medications. Continue symptomatic treatment. Otherwise, at this time will monitor the patient closely. Continue the symptomatic treatment. Otherwise, continue with antibiotics and Dr. Sandhu will follow. MMODL / SISSY: [id number] /
== END 2016-11-22 16:10 | disposition home or self-care (01) | DRG 871 ==
LOC: EC 08:41 → 6SEL 11:52 → 6ICU 11-16 14:12 → 5MS5E 11-17 18:07
PROVIDERS: ADMIT Hospitalist; ATTEND Hospitalist
DX: A41.9 Sepsis, unspecified organism (principal); J18.9 Pneumonia, unspecified organism; J96.01 Acute respiratory failure with hypoxia; J90 Pleural effusion, not elsewhere classified; E87.4 Mixed disorder of acid-base balance; E87.1 Hypo-osmolality and hyponatremia; E11.65 Type 2 diabetes mellitus with hyperglycemia; E78.5 Hyperlipidemia, unspecified; I10 Essential (primary) hypertension; I25.10 Atherosclerotic heart disease of native coronary artery without angina pectoris; K21.9 Gastro-esophageal reflux disease without esophagitis; M15.9 Polyosteoarthritis, unspecified; Z79.02 Long term (current) use of antithrombotics/antiplatelets; Z79.4 Long term (current) use of insulin; Z79.82 Long term (current) use of aspirin; Z79.899 Other long term (current) drug therapy; Z82.3 Family history of stroke; Z83.3 Family history of diabetes mellitus; Z87.891 Personal history of nicotine dependence; Z95.1 Presence of aortocoronary bypass graft; Z95.5 Presence of coronary angioplasty implant and graft; R65.20 Severe sepsis without septic shock; Z91.013 Allergy to seafood; Z91.018 Allergy to other foods; R26.9 Unspecified abnormalities of gait and mobility
CPT/HCPCS: 12013; 36415; 36600; 70450; 71010; 71020; 71250; 72125; 72170; 76705; 80048; 80053; 80202; 81001; 82009; 82550; 82553; 82805; 83520; 83605; 83735; 83930; 84100; 84132; 84443; 84484; 85025; 85610; 85730; 87040; 87070; 87086; 87205; 93005; 94640; 94760; 96361; 96365; 96375; 99285

== ENCOUNTER → 2016-12-14 | Outpatient (CLI) | payer BC ==
--- NOTE | 2016-12-14 10:22 | XR ---
EXAMINATION TYPE: XR chest 2V DATE OF EXAM: 12/14/2016 COMPARISON: November 22, 2016 HISTORY: Shortness of breath TECHNIQUE: Frontal and lateral views of the chest are obtained. FINDINGS: Scattered senescent parenchymal changes noted. Hyperinflation compatible with COPD. Resolution of right lower lobe infiltrate. Heart size is stable. Mediastinal structures are stable and grossly unremarkable. No evidence for hilar prominence. Degenerative changes dorsal spine. IMPRESSION: 1. Resolution of right lower lobe infiltrate.
== END | disposition home or self-care (01) ==
LOC: RADXRMAIN 09:49
PROVIDERS: ATTEND Family Medicine
DX: J18.1 Lobar pneumonia, unspecified organism (principal)
CPT/HCPCS: 71020

== ENCOUNTER 2017-11-22 18:53 | Emergency (ER) | payer BC ==
--- NOTE | 2017-11-22 19:29 | ED ---
Chest Pain HPI - General Chief Complaint: Chest Pain Stated Complaint: chest pain Time Seen by Provider: 11/22/17 19:06 Source: patient, RN notes reviewed, old records reviewed Mode of arrival: ambulatory Limitations: no limitations - History of Present Illness Initial Comments: This is a 57-year-old male with a history of four-way bypass surgery in the recent past who states he had the onset [place] [facility] of retrosternal chest pain aching nature with some shortness of breath to radiate to his jaw. It was 67/10 severity he states of prior to this he hadn't been feeling that well for a short period time he took his blood pressure medication. After that is when the events occurred. In route he took some nitroglycerin that he had that was given 2 years ago the pain seemed to resolve after possibly 10 minutes. At this time he is pain-free symptom free no other complaints he had no prior chest pain history. No recent fevers chills nausea vomiting sweats cough or phlegm production or other symptoms. MD Complaint: chest pain - Related Data Home Medications Medication Instructions Recorded Confirmed Insulin Glargine,Hum.rec.anlog 44 unit SQ HS 09/08/15 11/22/17 [Lantus Solostar] Omeprazole [PriLOSEC] 20 mg PO AC-BRKFST 09/08/15 11/22/17 Pioglitazone [Actos] 30 mg PO DAILY 09/08/15 11/22/17 Liraglutide [Victoza 3-Russ] 1.2 mg SQ DAILY 07/03/16 11/22/17 metFORMIN HCL [Glucophage] 1,000 mg PO BID 11/15/16 11/22/17 Aspirin 325 mg PO DAILY 11/22/17 11/22/17 Dulaglutide [Trulicity] 1.5 mg SQ TH 11/22/17 11/22/17 Hydrocodone/Acetaminophen [[place] 1 tab PO DAILY PRN 11/22/17 11/22/17 5-325] Ibuprofen 800 mg PO DAILY PRN 11/22/17 11/22/17 Insulin Aspart [Novolog Flexpen] 2 unit SQ BID 11/22/17 11/22/17 Insulin Aspart [Novolog Flexpen] 6 unit SQ W/LUNCH 11/22/17 11/22/17 Insulin Aspart [Novolog Flexpen] 8 unit SQ W/BRKFST 11/22/17 11/22/17 Insulin Aspart [Novolog Flexpen] 100 unit SQ W/SUPPER 11/22/17 11/22/17 Losartan Potassium [Cozaar] 50 mg PO DAILY 11/22/17 11/22/17 Metoprolol Tartrate [Lopressor] 100 mg PO BID-W/MEALS 11/22/17 11/22/17 Previous Rx's Medication Instructions Recorded Atorvastatin [Lipitor] 40 mg PO DAILY #30 tab 09/28/15 Clopidogrel [Plavix] 75 mg PO DAILY #30 tab 09/28/15 Diltiazem Cd [Cardizem CD] 180 mg PO DAILY #30 cap.er.24h 09/28/15 Nitroglycerin Sl Tabs [Nitrostat] 0.4 mg SUBLINGUAL Q5M PRN #25 tab 11/22/17 Allergies Allergy/AdvReac Type Severity Reaction Status Date / Time Poultry [[place]] Allergy Unknown Rash/Hives Verified 11/22/17 19:25 shellfish derived [Shellfish] Allergy Unknown Rash/Hives Verified 11/22/17 19:25 Review of Systems ROS Statement: Those systems with pertinent positive or pertinent negative responses have been documented in the HPI. ROS Other: All systems not noted in ROS Statement are negative. EKG Findings - EKG Results: EKG: interpreted by [facility]LEXIS, sinus rhythm (Sinus rhythm rate of 82. AR Interval 182, QRS duration 86 QT since QTC 370/441 nonspecific T-wave configuration this is compared with an EKG dated 11/15/16) Past Medical History Past Medical History: Coronary Artery Disease (CAD), Chest Pain / Angina, Diabetes Mellitus, GERD/Reflux, Hyperlipidemia, Hypertension, Osteoarthritis (OA ) Additional Past Medical History / Comment(s): IDDM type II History of Any Multi-Drug Resistant Organisms: None Reported Past Surgical History: Coronary Bypass/CABG, Heart Catheterization With Stent Additional Past Surgical History / Comment(s): C-6 & C-7 FUSION. , HEART CATH WITH STENTS IN RCA AND LEFT CX (2006), 08/2015 CARDIAC CATH, 09/2015 CABG-4 VESSEL , egd/colonoscopy, LYMPH NODE REMOVED FROM NECK. Past Anesthesia/Blood Transfusion Reactions: No Reported Reaction Date of Last Stent Placement:: 2006 Past Psychological History: No Psychological Hx Reported Smoking Status: Former smoker - Past Family History Mother Family Medical History: Diabetes Mellitus Additional Family Medical History / Comment(s): MOTHER LIVED TO BE 82 YRS OLD. Father Family Medical History: CVA/TIA Additional Family Medical History / Comment(s): FATHER HAD CVA X2. HE IN A MVA. General Exam - General Exam Comments Initial Comments: This is a well-developed well-nourished awake alert oriented 3 male Limitations: no limitations General appearance: alert, in no apparent distress Head exam: Present: atraumatic, normocephalic, normal inspection Eye exam: Present: normal appearance, PERRL, EOMI. Absent: scleral icterus, conjunctival injection, periorbital swelling ENT exam: Present: normal exam, mucous membranes moist Neck exam: Present: normal inspection. Absent: tenderness, meningismus, lymphadenopathy Respiratory exam: Present: normal lung sounds bilaterally. Absent: respiratory distress, wheezes, rales, rhonchi, stridor Cardiovascular Exam: Present: regular rate, normal rhythm, normal heart sounds. Absent: systolic murmur, diastolic murmur, rubs, gallop, clicks GI/Abdominal exam: Present: soft, normal bowel sounds. Absent: distended, tenderness, guarding, rebound, rigid Extremities exam: Present: normal inspection, full ROM, normal capillary refill. Absent: tenderness, pedal edema, joint swelling, calf tenderness Back exam: Present: normal inspection Neurological exam: Present: alert, oriented X3, CN II-XII intact Psychiatric exam: Present: normal affect, normal mood Skin exam: Present: warm, dry, intact, normal color. Absent: rash Course Vital Signs 11/22/17 11/22/17 11/22/17 19:08 19:32 20:55 Temperature 96.9 F L Pulse Rate 85 77 Respiratory 18 18 Rate Blood Pressure 194/111 168/81 162/87 O2 Sat by Pulse 96 95 Oximetry Chest Pain MDM - MDM I did review the imaging and report no acute findings repeat troponin was within normal limits patient had no further pain he will be discharged he is a follow-up with cardiology I will write a new prescription form for nitroglycerin. Disposition Clinical Impression: Chest pain Disposition: HOME SELF-CARE Condition: Good Instructions: Chest Pain (ED) Prescriptions: Nitroglycerin Sl Tabs [Nitrostat] 0.4 mg SUBLINGUAL Q5M PRN #25 tab PRN Reason: Chest Pain Is patient prescribed a controlled substance at d/c from ED?: No Referrals: Ko Burton DO [Primary Care Provider] - 1-2 days Jesus Bowles MD [STAFF PHYSICIAN] - 1-2 days
[2017-11-22 19:49] LABS: Basophils # (A) 0.1 k/uL (0-0.2); Basophils % (A) 1 %; Eosinophils # (A) 0.1 k/uL (0-0.7); Eosinophils % (A) 2 %; HCT 41.8 % (39.0-53.0); Lymphocytes # (A) 1.6 k/uL (1.0-4.8); Lymphocytes % (A) 26 %; MCH 29.1 pg (25.0-35.0); MCHC 33.6 g/dL (31.0-37.0); MCV 86.5 fL (80.0-100.0); Mean Platelet Volume 6.4; Monocytes # (A) 0.4 k/uL (0-1.0); Monocytes % (A) 7 %; Neutrophils # (A) 3.7 k/uL (1.3-7.7); Neutrophils % (A) 61 %; Platelet Count 239 k/uL (150-450); RBC 4.83 m/uL (4.30-5.90)
[2017-11-22 19:59] LABS: ALT 19 U/L (21-72); AST 20 U/L (17-59); Albumin 4.3 g/dL (3.5-5.0); Alkaline Phosphatase 89 U/L (38-126); Amylase 112 U/L (30-110); Anion Gap 12 mmol/L; Blood Urea Nitrogen 18 mg/dL (9-20); Calcium 9.7 mg/dL (8.4-10.2); Carbon Dioxide 24 mmol/L (22-30); Chloride 102 mmol/L (98-107); Glucose 165 mg/dL (74-99); Lipase 294 U/L (23-300); Magnesium 1.4 mg/dL (1.6-2.3); Potassium 4.5 mmol/L (3.5-5.1); Sodium 138 mmol/L (137-145); Total Bilirubin 0.8 mg/dL (0.2-1.3)
[2017-11-22 20:09] LABS: Creatine Kinase 89 U/L (55-170)
[2017-11-22 20:15] LABS: D-Dimer 0.47 mg/L FEU (<0.60); Prothrombin Time 10.1 sec (9.0-12.0)
[2017-11-22] MEDS ORDERED: MAGNESIUM SULFATE-D5W PMX 1 GM in DEXTROSE/WATER 1 100ML.BAG IVPB ONE (20:18)
[2017-11-22 20:22] LABS: Creatine Kinase MB 1.5 ng/mL (0.0-2.4); Troponin I <0.012 ng/mL (0.000-0.034)
--- NOTE | 2017-11-22 20:31 | XR ---
EXAMINATION: XR chest 2V DATE AND TIME: 11/22/2017 8:03 PM CLINICAL INDICATION: Chest Pain TECHNIQUE: PA and lateral COMPARISON: 12/14/2016 FINDINGS: The lungs are clear. The pleural spaces are negative. There are sutures and mediastinal clips and EKG leads noted. The cardiac silhouette is not enlarged. Remainder of the mediastinal silhouette is unremarkable. The skeletal structures and soft tissues are negative for acute findings. IMPRESSION: NO ACUTE PROCESS.
[2017-11-22 22:47] VITALS: BP 162/94; PULSE 72; RESP 17; TEMP 98.1
== END 2017-11-22 22:51 | disposition home or self-care (01) ==
LOC: EC 18:53
DX: R07.2 Precordial pain (principal); R06.02 Shortness of breath; R68.84 Jaw pain; I10 Essential (primary) hypertension; I25.10 Atherosclerotic heart disease of native coronary artery without angina pectoris; E11.9 Type 2 diabetes mellitus without complications; K21.9 Gastro-esophageal reflux disease without esophagitis; M19.90 Unspecified osteoarthritis, unspecified site; Z87.891 Personal history of nicotine dependence; Z91.013 Allergy to seafood; Z91.018 Allergy to other foods; Z79.4 Long term (current) use of insulin; Z79.82 Long term (current) use of aspirin; Z79.899 Other long term (current) drug therapy; Z86.79 Personal history of other diseases of the circulatory system; Z95.1 Presence of aortocoronary bypass graft
CPT/HCPCS: 36415; 93005; 85379; 83880; 80053; 82150; 82550; 82553; 83690; 83735; 84484; 85025; 85610; 85730; 71046; 99285; 96365; J3475

== ENCOUNTER 2021-09-16 07:53 | Day surgery (SDC) | payer BC ==
[2021-09-16] MEDS ORDERED: SODIUM CHLORIDE 0.9% 500 ML 500 ML IV ONE (08:05)
[2021-09-16 08:10] LABS: Glucose,Whole Blood 153 mg/dL (70-110)
[2021-09-16 08:13] VITALS: TEMP 97.6
[2021-09-16] MEDS ORDERED: fentaNYL (PF) 50 MCG/ML 2 ML AMP ONE (08:50)
[2021-09-16] MEDS: BENZOCAINE SPRAY 1 CAN TOPICAL ONE ×2 (09:00→09:13)
[2021-09-16] MEDS ORDERED: MIDAZOLAM 2 MG/2 ML VIAL IV ONE (09:13)
[2021-09-16] MEDS ORDERED: fentaNYL (PF) 50 MCG/ML 2 ML AMP IV ONE (09:13)
[2021-09-16 09:58] VITALS: PULSE 64
--- NOTE | 2021-09-16 12:23 | ECHOT ---
TRANSESOPHAGEAL ECHOCARDIOGRAM INDICATION: TIA. This is a patient with known coronary artery disease, status post bypass, hypertension, diabetes and dyslipidemia who presented to me recently having had an episode of TIA. A transthoracic echo revealed thickening of the aortic valve leaflet. I advised him to undergo transesophageal echo for further evaluation. PROCEDURE NOTE: After obtaining informed consent, transesophageal echocardiogram was performed in left lateral position using an Omniplane probe. Local and IV sedation were obtained using Xylocaine spray, 2 mg of Versed and 25 mcg of fentanyl. Patient tolerated the procedure well without any obvious immediate complications. FINDINGS: 1. Mitral valve is anatomically normal. There is mild mitral regurgitation noted. 2. Tricuspid valve shows mild tricuspid regurgitation. 3. Left atrium, right atrium and right ventricle seem within normal limits. 4. Left ventricle has normal size with preserved LV function with an ejection fraction of %. 5. Aortic root measures within normal limits. 6. There is no evidence of [id number] shunt by color-flow Doppler or [id number]-rw-[id number] shunt by agitated saline contrast study across the interatrial septum. 7. Aortic valve is a 3-leaflet valve and appears somewhat thickened, diffusely involving both aortic valve leaflets with trace aortic regurgitation. I do not see a mass lesion. CONCLUSIONS: 1. Normal LV function. 2. No intracardiac thrombus. 3. No shunting across the interatrial septum. 4. Aortic valve leaflet thickening of unclear clinical significance. MMODL / IJN: [id number] /
[2021-09-16 12:53] VITALS: BP 135/79; RESP 16
== END 2021-09-16 10:30 | disposition home or self-care (01) ==
LOC: CATHCVL 07:53
PROVIDERS: ATTEND Internal Medicine Cardiovascular Disease
DX: I25.810 Atherosclerosis of coronary artery bypass graft(s) without angina pectoris (principal); Z95.1 Presence of aortocoronary bypass graft; I10 Essential (primary) hypertension; E78.2 Mixed hyperlipidemia; I25.5 Ischemic cardiomyopathy; E11.9 Type 2 diabetes mellitus without complications; I08.3 Combined rheumatic disorders of mitral, aortic and tricuspid valves; Z86.73 Personal history of transient ischemic attack (TIA), and cerebral infarction without residual deficits; Z79.899 Other long term (current) drug therapy; Z79.4 Long term (current) use of insulin; Z79.82 Long term (current) use of aspirin; Z79.52 Long term (current) use of systemic steroids; Z82.49 Family history of ischemic heart disease and other diseases of the circulatory system
CPT/HCPCS: 93312; 93320; 93325; J2250; J3010

== ENCOUNTER 2023-03-23 12:01 | Inpatient (IN) | payer BC ==
[2023-03-23 12:46] LABS: ALT 17 U/L (4-49); AST 18 U/L (17-59); African American GFR (CKD) >90 (>60 ml/min/1.73 sqM); Albumin 4.1 g/dL (3.5-5.0); Alkaline Phosphatase 100 U/L (38-126); Anion Gap 10 mmol/L; Blood Urea Nitrogen 20 mg/dL (9-20); Calcium 9.2 mg/dL (8.4-10.2); Carbon Dioxide 21 mmol/L (22-30); Chloride 105 mmol/L (98-107); Glucose 148 mg/dL (74-99); Non-African American GFR(CKD) 87 (>60 ml/min/1.73 sqM); Potassium 4.7 mmol/L (3.5-5.1); Sodium 136 mmol/L (137-145); Total Protein 7.3 g/dL (6.3-8.2)
--- NOTE | 2023-03-23 12:49 | CT ---
EXAMINATION TYPE: CT brain wo con DATE OF EXAM: 03/23/2023 COMPARISON: 11/15/2016 INDICATION: RT side weakness DLP: 1160.4 mGycm, Automated exposure control for dose reduction was used. CONTRAST: None CT of the brain is performed utilizing 3 mm thick sections through the posterior fossa and 3 mm thick sections through the remaining calvarium. Study is performed within 24 hours of arrival to the hosp ital. No abnormal hyperdensity is present to suggest an acute intracranial hemorrhage. No mass lesion is evident. No acute infarcts are evident. There may be some minimal white matter hypodensity likely on the basis of chronic white matter ischemic changes. Ventricles and sulci are appropriate for the patient age. There is a couple small retention cyst within the medial maxillary sinuses. Paranasal sinuses and mas toid air cells are otherwise clear. IMPRESSION: 1. No acute intracranial process. Follow-up MRI can be performed as clinically indicated. 2. Minimal periventricular white matter changes predominantly on the right likely chronic white matte r ischemic changes.
[2023-03-23 12:54] LABS: Partial Thromboplastin Time 25.3 sec (22.0-30.0); Prothrombin Time 11.1 sec (10.0-12.5)
[2023-03-23 13:02] LABS: Basophils # (A) 0.1 k/uL (0-0.2); Basophils % (A) 1 %; Eosinophils # (A) 0.1 k/uL (0-0.7); Eosinophils % (A) 2 %; HCT 43.8 % (39.0-53.0); HGB 15.2 gm/dL (13.0-17.5); Lymphocytes # (A) 1.2 k/uL (1.0-4.8); Lymphocytes % (A) 19 %; MCHC 34.8 g/dL (31.0-37.0); MCV 86.2 fL (80.0-100.0); Mean Platelet Volume 8.2; Monocytes # (A) 0.5 k/uL (0-1.0); Monocytes % (A) 8 %; Neutrophils # (A) 4.3 k/uL (1.3-7.7); Neutrophils % (A) 66 %; Platelet Count 227 k/uL (150-450); RBC 5.08 m/uL (4.30-5.90); RDW 14.3 % (11.5-15.5); WBC 6.5 k/uL (3.8-10.6)
--- NOTE | 2023-03-23 14:08 | CT ---
EXAMINATION TYPE: CT angio head neck DATE OF EXAM: 03/23/2023 HISTORY: COMPARISON: None CT DLP: 699.9 mGycm. Automated Exposure Control for Dose Reduction was Utilized. TECHNIQUE: CTA scan of the neck is performed with IV Contrast, axial images are obtained, coronal an d sagittal reformatted images are reviewed. Three-D reconstructed images are created on an [employer] workstation and reviewed. Source images are reviewed. FINDINGS: Carotid/Vascular Structures: There is a 3 vessel arch. Common carotid arteries bifurcate into internal and external carotid arteries without significant radhika w limiting stenosis. There is approximately 38% narrowing of the right internal carotid artery origin . There is approximately 43% narrowing of the left internal carotid artery origin. Flow-limiting keri nosis greater than 50% not evident within the bifurcations. Vertebral arteries are codominant. Internal carotid arteries and vertebral arteries are patent to the skull base. Cervical of [place]: Vertebral basilar system appears normal. Posterior cerebral vasculature is unrema rkable. Internal carotid arteries bifurcate normally into A1 and M1 segments. A2 segments are normal. Right A1 segment is slightly hypoplastic. The anterior communicating artery is patent. The right posterior communicating artery is patent. The left posterior communicating artery is patent. IMPRESSION: 1. No flow-limiting stenosis bilateral carotid bifurcations. Mild calcified atheromatous plaquing is present with areas of narrowing less than 50% near the origins of the internal carotid arteries.. 2. Normal [place], right A1 segment slightly hypoplastic. NASCET criteria was used in interpretation of this exam?
--- NOTE | 2023-03-23 14:24 | ED ---
General Adult HPI - General Chief complaint: Weakness Stated complaint: possible stroke R side weakness Time Seen by Provider: 03/23/23 12:26 Source: patient, family Mode of arrival: wheelchair - History of Present Illness Initial comments: 62-year-old male presents emergency department with possible stroke. He states that his symptoms started yesterday afternoon. He noted right-sided facial droop, slurred speech with some weakness in his right upper and lower extremity. He denies history of stroke. No head injuries. He denies any headache or visual changes. Patient is right-hand dominant. Patient took baby aspirin this morning. No other alleviating, precipitating or modifying factors - Related Data Home Medications Medication Instructions Recorded Confirmed Omeprazole [PriLOSEC] 20 mg PO AC-BRKFST 09/08/15 03/23/23 metFORMIN HCL [Glucophage] 1,000 mg PO BID 11/15/16 03/23/23 Empagliflozin [Jardiance] 12.5 mg PO DAILY 09/15/21 03/23/23 Cholecalciferol [Vitamin D3 (25 25 mcg PO DAILY 03/23/23 03/23/23 Mcg = 1000 Iu)] Losartan Potassium 100 mg PO DAILY 03/23/23 03/23/23 Tamsulosin [Flomax] 0.4 mg PO DAILY 03/23/23 03/23/23 Tirzepatide [Mounjaro] 7.5 mg SQ BRANDON 03/23/23 03/23/23 cloNIDine HCL [Catapres] 0.3 mg PO TID 03/23/23 03/23/23 Previous Rx's Medication Instructions Recorded Acetaminophen Tab [Tylenol] 650 mg PO Q6HR PRN tab 03/29/23 Aspirin 325 mg PO DAILY tab 03/29/23 Atorvastatin [Lipitor] 80 mg PO DAILY tab 03/29/23 Clopidogrel [Plavix] 75 mg PO DAILY tab 03/29/23 Gabapentin 300 mg PO TID #9 cap 03/29/23 INSULIN ASPART (NovoLOG) [NovoLOG 0 unit SQ AC-TID each 03/29/23 (formulary)] Insulin Detemir (Levemir) [Levemir] 20 unit SQ HS each 03/29/23 Melatonin 3 mg PO HS PRN tab 03/29/23 Prazosin [Minipress] 1 mg PO TID cap 03/29/23 amLODIPine [Norvasc] 5 mg PO BID tab 03/29/23 Allergies Allergy/AdvReac Type Severity Reaction Status Date / Time shellfish derived [Shellfish] Allergy Unknown Rash/Hives Verified 03/23/23 14:12 turkey Allergy Unknown Verified 03/29/23 11:33 Review of Systems ROS Statement: Those systems with pertinent positive or pertinent negative responses have been documented in the HPI. ROS Other: All systems not noted in ROS Statement are negative. Past Medical History Past Medical History: Coronary Artery Disease (CAD), Chest Pain / Angina, Diabetes Mellitus, Hyperlipidemia, Hypertension, Osteoarthritis (OA) Additional Past Medical History / Comment(s): IDDM type II, possible valve problem per pt. History of Any Multi-Drug Resistant Organisms: None Reported Past Surgical History: Coronary Bypass/CABG, Heart Catheterization With Stent Additional Past Surgical History / Comment(s): C-6 & C-7 FUSION. , HEART CATH WITH STENTS IN RCA AND LEFT CX, 09/2015 CABG-4 VESSEL, egd/colonoscopy, LYMPH NODE REMOVED FROM NECK. Past Anesthesia/Blood Transfusion Reactions: No Reported Reaction Date of Last Stent Placement:: 2006 Past Psychological History: No Psychological Hx Reported Smoking Status: Former smoker - Past Family History Mother Family Medical History: Diabetes Mellitus Additional Family Medical History / Comment(s): MOTHER LIVED TO BE 82 YRS OLD. Father Family Medical History: CVA/TIA Additional Family Medical History / Comment(s): FATHER HAD CVA X2. HE IN A MVA. General Exam General appearance: alert Head exam: Present: atraumatic, other (Right-sided facial droop) Eye exam: Present: normal appearance, PERRL, EOMI. Absent: scleral icterus, conjunctival injection, periorbital swelling ENT exam: Present: normal exam, mucous membranes moist Respiratory exam: Present: normal lung sounds bilaterally. Absent: respiratory distress, wheezes, rales, rhonchi, stridor Cardiovascular Exam: Present: regular rate, normal rhythm, normal heart sounds. 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 Absent: rash Course Vital Signs 03/23/23 03/23/2303/23/24 12:08 13:00 14:00 Temperature 97.3 F L Pulse Rate 76 71 71 Pulse Rate [ Left Supine Pulse Oximetery ] Respiratory 18 16 16 Rate Blood Pressure 170/92 151/86 137/88 Blood Pressure [Left Arm Supine] O2 Sat by Pulse 98 95 Oximetry 03/23/23 03/23/23 03/23/23 14:06 16:00 17:00 Temperature Pulse Rate 69 75 66 Pulse Rate [ Left Supine Pulse Oximetery ] Respiratory 18 18 18 Rate Blood Pressure 147/79 145/82 147/86 Blood Pressure [Left Arm Supine] O2 Sat by Pulse 94 L Oximetry 03/23/23 03/23/23 03/23/23 19:32 20:26 21:35 Temperature Pulse Rate 73 75 78 Pulse Rate [ Left Supine Pulse Oximetery ] Respiratory 16 14 16 Rate Blood Pressure 185/103 188/103 160/85 Blood Pressure [Left Arm Supine] O2 Sat by Pulse 96 Oximetry 03/23/23 03/23/23 03/24/23 23:08 23:09 01:00 Temperature Pulse Rate 71 75 75 Pulse Rate [ Left Supine Pulse Oximetery ] Respiratory 16 13 Rate Blood Pressure 175/112 175/112 178/108 Blood Pressure [Left Arm Supine] O2 Sat by Pulse 96 95 Oximetry 03/24/23 03/24/23 03/24/23 02:00 02:44 03:00 Temperature Pulse Rate 64 69 Pulse Rate [ Left Supine Pulse Oximetery ] Respiratory 15 16 14 Rate Blood Pressure 172/109 151/78 Blood Pressure [Left Arm Supine] O2 Sat by Pulse 95 96 Oximetry 03/24/23 03/24/23 03/24/23 04:00 05:00 07:41 Temperature 98.2 F Pulse Rate 64 74 71 Pulse Rate [ Left Supine Pulse Oximetery ] Respiratory 15 16 17 Rate Blood Pressure 140/63 137/68 182/99 Blood Pressure [Left Arm Supine] O2 Sat by Pulse 96 95 95 Oximetry 03/24/23 03/24/23 03/24/23 08:40 10:09 12:03 Temperature 98.2 F Pulse Rate 81 71 68 Pulse Rate [ Left Supine Pulse Oximetery ] Respiratory 17 17 17 Rate Blood Pressure 183/96 160/89 160/94 Blood Pressure [Left Arm Supine] O2 Sat by Pulse 97 95 95 Oximetry 03/24/23 14:47 Temperature 98 F Pulse Rate Pulse Rate [ 79 Left Supine Pulse Oximetery ] Respiratory 18 Rate Blood Pressure Blood Pressure 182/104 [Left Arm Supine] O2 Sat by Pulse 97 Oximetry Medical Decision Making - Medical Decision Making Was pt. sent in by a medical professional or institution (NAVARRO Wilson, ROUTE DELIVERY SUPERVISOR, urgent care, hospital, or long term...) When possible be specific @ -No Did you speak to anyone other than the patient for history (EMS, parent, family, police, friend...)? What history was obtained from this source @ -No Did you review nursing and triage notes (agree or disagree)? Why? @ -I reviewed and agree with nursing and triage notes Were old charts reviewed (outside hosp., previous admission, EMS record, old EKG , old radiological studies, urgent care reports/EKG's, long term records)? Report findings @ -No old charts were reviewed Differential Diagnosis (chest pain, altered mental status, abdominal pain women, abdominal pain men, vaginal bleeding, weakness, fever, dyspnea, syncope, headache, dizziness, GI bleed, back pain, seizure, CVA, palpatations, mental health, musculoskeletal)? @ -Differential CVA Ischemic stroke, hemorrhagic stroke, brain tumor, atypical migraine, Wernicke's encephalopathy, seizure, multiple sclerosis, meningitis, encephalitis, hypoglycemia, Guillain-Lowe, electrolytes disturbance, myasthenia gravis.... This is not meant to be an all-inclusive list EKG interpreted by me (3pts min.). @ -Yes and demonstrates sinus rhythm with a rate of 73. Parable 185. QRS 95. QTc of 426. No acute ST segment elevations or depressions X-rays interpreted by me (1pt min.). @ -Yes and demonstrates a density along the right heart border CT interpreted by me (1pt min.). @ -Yes and does not demonstrate acute intracranial process U/S interpreted by me (1pt. min.). @ -None done What testing was considered but not performed or refused? (CT, X-rays, U/S, labs)? Why? @ -None What meds were considered but not given or refused? Why? @ -None Did you discuss the management of the patient with other professionals (professionals i.e. , NAVARRO, ROUTE DELIVERY SUPERVISOR, lab, RT, psych nurse, social service worker, steward/stewardess third class, teacher, corporate security officer, lead case manager)? Give summary @ -Spoke with Dr. Sandhu for admission Was smoking cessation discussed for >3mins.? @ -No Was critical care preformed (if so, how long)? @ -No Were there social determinants of health that impacted care today? How? (Homelessness, low income, unemployed, alcoholism, drug addiction, transportation, low edu. Level, literacy, decrease access to med. care, correction, rehab)? @ -No Was there de-escalation of care discussed even if they declined (Discuss DNR or withdrawal of care, Hospice)? DNR status @ -No What co-morbidities impacted this encounter? (DM, HTN, Smoking, COPD, CAD, Cancer, CVA, ARF, Chemo, Hep., AIDS, mental health diagnosis, sleep apnea, morbid obesity)? @ -Diabetes, coronary artery disease Was patient admitted / discharged? Hospital course, mention meds given and route, prescriptions, significant lab abnormalities, going to OR and other pertinent info. @ -Upon arrival patient was placed into room 7. A thorough history and physical exam was performed. Patient does have visible right-sided facial droop with dysarthria. There is concern for stroke however patient's symptom onset was greater than 24 hours ago. IV was established. Laboratory studies are conducted and patient goes for CT of his head. Chest x-ray was performed. Results of the studies were discussed with the patient. Informed him that there is still high concern for stroke and therefore recommended admission for MRI and neurology consultation. Patient was agreeable with this plan. He was given an aspirin and a statin and admitted to Dr. Sandhu Undiagnosed new problem with uncertain prognosis? @ -This Drug Therapy requiring intensive monitoring for toxicity (Heparin, Nitro, Insulin, Cardizem)? @ -No Were any procedures done? @ -No Diagnosis/symptom? @ -Acute right-sided facial droop, suspected CVA Acute, or Chronic, or Acute on Chronic? @ -Acute Uncomplicated (without systemic symptoms) or Complicated (systemic symptoms)? @ -Placated Side effects of treatment? @ -No Exacerbation, Progression, or Severe Exacerbation? @ -No Poses a threat to life or bodily function? How? (Chest pain, USA, NM, pneumonia, PE, COPD, DKA, ARF, appy, cholecystitis, CVA, Diverticulitis, Homicidal, Suicidal, threat to staff... and all critical care pts) @ -Yes patient does have right-sided weakness due to suspected stroke - Lab Data Result diagrams: 03/29/23 10:28 03/29/23 10:28 Lab Results 03/23/23 03/23/23 03/23/23 Range/Units 12:19 12:19 12:19 WBC 6.5 (3.8-10.6) k/uL RBC 5.08 (4.30-5.90) m/uL Hgb 15.2 (13.0-17.5) gm/dL Hct 43.8 (39.0-53.0) % MCV 86.2 (80.0-100.0) fL MCH 30.0 (25.0-35.0) pg MCHC 34.8 (31.0-37.0) g/dL RDW 14.3 (11.5-15.5) % Plt Count 227 (150-450) k/uL MPV 8.2 Neutrophils % 66 % Lymphocytes % 19 % Monocytes % 8 % Eosinophils % 2 % Basophils % 1 % Neutrophils # 4.3 (1.3-7.7) k/uL Lymphocytes # 1.2 (1.0-4.8) k/uL Monocytes # 0.5 (0-1.0) k/uL Eosinophils # 0.1 (0-0.7) k/uL Basophils # 0.1 (0-0.2) k/uL PT 11.1 (10.0-12.5) sec INR 1.0 (<1.2) APTT 25.3 (22.0-30.0) sec Sodium 136 L (137-145) mmol/L Potassium 4.7 (3.5-5.1) mmol/L Chloride 105 (98-107) mmol/L Carbon Dioxide 21 L (22-30) mmol/L Anion Gap 10 mmol/L BUN 20 (9-20) mg/dL Creatinine 0.93 (0.66-1.25) mg/dL Est GFR (CKD-EPI)AfAm >90 (>60 ml/min/1.73 sqM) Est GFR (CKD-EPI)NonAf 87 (>60 ml/min/1.73 sqM) Glucose 148 H (74-99) mg/dL Calcium 9.2 (8.4-10.2) mg/dL Total Bilirubin 1.0 (0.2-1.3) mg/dL AST 18 (17-59) U/L ALT 17 (4-49) U/L Alkaline Phosphatase 100 (38-126) U/L Troponin I (0.000-0.034) ng/mL Total Protein 7.3 (6.3-8.2) g/dL Albumin 4.1 (3.5-5.0) g/dL 03/23/23 Range/Units 12:19 WBC (3.8-10.6) k/uL RBC (4.30-5.90) m/uL Hgb (13.0-17.5) gm/dL Hct (39.0-53.0) % MCV (80.0-100.0) fL MCH (25.0-35.0) pg MCHC (31.0-37.0) g/dL RDW (11.5-15.5) % Plt Count (150-450) k/uL MPV Neutrophils % % Lymphocytes % % Monocytes % % Eosinophils % % Basophils % % Neutrophils # (1.3-7.7) k/uL Lymphocytes # (1.0-4.8) k/uL Monocytes # (0-1.0) k/uL Eosinophils # (0-0.7) k/uL Basophils # (0-0.2) k/uL PT (10.0-12.5) sec INR (<1.2) APTT (22.0-30.0) sec Sodium (137-145) mmol/L Potassium (3.5-5.1) mmol/L Chloride (98-107) mmol/L Carbon Dioxide (22-30) mmol/L Anion Gap mmol/L BUN (9-20) mg/dL Creatinine (0.66-1.25) mg/dL Est GFR (CKD-EPI)AfAm (>60 ml/min/1.73 sqM) Est GFR (CKD-EPI)NonAf (>60 ml/min/1.73 sqM) Glucose (74-99) mg/dL Calcium (8.4-10.2) mg/dL Total Bilirubin (0.2-1.3) mg/dL AST (17-59) U/L ALT (4-49) U/L Alkaline Phosphatase (38-126) U/L Troponin I 0.013 (0.000-0.034) ng/mL Total Protein (6.3-8.2) g/dL Albumin (3.5-5.0) g/dL Disposition Clinical Impression: Right sided weakness, CVA (cerebral vascular accident) Disposition: ADMITTED IP TO THIS [facility] Condition: Serious Is patient prescribed a controlled substance at d/c from ED?: No Time of Disposition: 15:29 Decision to Admit Reason: Admit from EC Decision Date: 03/23/23 Decision Time: 15:29
--- NOTE | 2023-03-23 14:38 | XR ---
EXAMINATION TYPE: XR chest 2V DATE OF EXAM: 03/23/2023 COMPARISON: 11/22/2017 INDICATION: Altered mental status TECHNIQUE: Frontal and lateral views of the chest are obtained. FINDINGS: The heart size is normal. The pulmonary vasculature is normal. Minimal increased densities at the left base adjacent to the heart border. Lungs otherwise appear kiersten ar. Follow-up chest study is recommended. IMPRESSION: 1. Minimal density adjacent to the left heart border. Follow-up chest study in 3 months is recommende ravin
[2023-03-23] MEDS: ASPIRIN 325 MG TAB PO STA (17:01)
[2023-03-23] MEDS: ATORVASTATIN 40 MG TAB PO SCH (17:01)
[2023-03-23] MEDS ORDERED: DEXTROSE 50% SYRINGE 50 ML IVP PRN ×2 (17:24)
[2023-03-23] MEDS: INSULIN ASPART (NovoLOG) 100 UNIT/ML VIAL SQ SCH (18:42)
[2023-03-23 18:45] LABS: Glucose,Whole Blood 109 mg/dL (70-110)
[2023-03-23] MEDS: metFORMIN 500 MG TAB PO SCH (19:14)
[2023-03-23] MEDS: GABAPENTIN 300 MG CAP PO SCH (21:14)
[2023-03-23] MEDS: cloNIDine HCL 0.1 MG TAB PO SCH (21:15)
[2023-03-23] MEDS: INSULIN DETEMIR (LEVEMIR) 100 UNIT/ML SYR SQ SCH (21:20)
[2023-03-23 21:21] LABS: Glucose,Whole Blood 157 mg/dL (70-110)
[2023-03-24 07:31] LABS: Glucose,Whole Blood 81 mg/dL (70-110)
[2023-03-24] MEDS: PANTOPRAZOLE 40 MG TABLET PO SCH (07:35)
[2023-03-24] MEDS: LOSARTAN 50 MG TAB PO SCH (08:24)
[2023-03-24] MEDS: TAMSULOSIN 0.4 MG CAP.ER.24H PO SCH (08:24)
[2023-03-24] MEDS: ASPIRIN 325 MG TAB PO SCH (08:25)
[2023-03-24] MEDS: CHOLECALCIFEROL 25 MCG (1000 IU) TABLET PO SCH (08:25)
[2023-03-24] MEDS: amLODIPine 5 MG TAB PO SCH (08:27)
[2023-03-24] MEDS: DAPAGLIFLOZIN PROPANEDIOL 5 MG TABLET PO SCH (10:07)
--- NOTE | 2023-03-24 10:24 | CA ---
Transthoracic Echo Report Name: Dorian Stuart Age: 62 Gender: M : 1960 Exam Date: 03/23/2023 17:58 Exam Location: [facility] Ht (in): 72 Wt (lb): 203 Ordering Physician: Glenys Benavides DO Attending/Referring Phys: [id number], Kennedy Materials Assistant Margaret Blackwood, RDCS Procedure CPT: Indications: Thrombus Cardiac Hx: DM, STROKE, CABG Technical Quality: Good Contrast 1: Total Dose (mL): Contrast 2: Total Dose (mL): MEASUREMENTS (Male / Female) Normal Values 2D ECHO LV Diastolic Diameter PLAX 5.6 cm 4.2 - 5.9 / 3.9 - 5.3 cm LV Systolic Diameter PLAX 4.3 cm IVS Diastolic Thickness 1.3 cm 0.6 - 1.0 / 0.6 - 0.9 cm LVPW Diastolic Thickness 1.3 cm 0.6 - 1.0 / 0.6 - 0.9 cm LV Relative Wall Thickness 0.5 RV Internal Dim ED PLAX 3.8 cm LVOT Diameter 2.5 cm LA Systolic Diameter LX 5.1 cm 3.0 - 4.0 / 2.7 - 3.8 cm LV Diastolic Volume MOD BP 143.8 cm??? 67 - 155 / 56 - 104 cm??? LV Systolic Volume MOD BP 89.4 cm??? / 19 - 49 cm??? LV Ejection Fraction MOD BP 37.8 % >= 55 % LV Cardiac Index MOD BP 1997.5 cm???/min???m??? LV Diastolic Volume MOD 4C 137.4 cm??? LV Systolic Volume MOD 4C 91.7 cm??? LV Ejection Fraction MOD 4C 33.2 % LV Cardiac Index MOD 4C 1677.3 cm???/min???m??? LV Diastolic Length 4C 8.6 cm LV Systolic Length 4C 8.4 cm LV Diastolic Volume MOD 2C 144.9 cm??? LV Systolic Volume MOD 2C 85.2 cm??? LV Ejection Fraction MOD 2C 41.2 % LV Cardiac Index MOD 2C 2194.0 cm???/min???m??? LV Diastolic Length 2C 9.1 cm LV Systolic Length 2C 8.1 cm LA Volume 88.8 cm??? 18 - 58 / 22 - 52 cm??? LA Volume Index 40.8 cm???/m??? 16 - 28 cm???/m??? M-MODE Aortic Root Diameter MM 3.4 cm MV E Point Septal Separation 1.4 cm AV Cusp Separation MM 2.5 cm DOPPLER AV Peak Velocity 107.7 cm/s AV Peak Gradient 4.6 mmHg MV Area PHT 4.4 cm??? Mitral E Point Velocity 110.1 cm/s Mitral A Point Velocity 87.0 cm/s Mitral E to A Ratio 1.3 MV Deceleration Time 171.6 ms MV E' Velocity 4.9 cm/s Mitral E to MV E' Ratio 22.3 TR Peak Velocity 235.7 cm/s TR Peak Gradient 22.2 mmHg Right Ventricular Systolic Press 26.1 mmHg FINDINGS Left Ventricle Left ventricular ejection fraction is estimated at 35-40 %. Left ventricular cavity size normal. Mildly increased septal wall thickness. Moderately increased left ventricular systolic volume. Moderately decreased left ventricular ejection fraction. Infero basel hypokinesis Right Ventricle Mild right ventricular dilatation. Right ventricular systolic pressure within normal limits. Right Atrium Normal right atrial size. Left Atrium Moderate LA dilatation. Mitral Valve Structurally normal mitral valve. Trace mitral regurgitation. Mitral annular calcification. Aortic Valve Trileaflet aortic valve. Thickened aortic valve without stenosis. Trace to mild aortic regurgitation. Tricuspid Valve Structurally normal tricuspid valve. Mild tricuspid regurgitation. Pulmonic Valve Structurally normal pulmonic valve. No pulmonic regurgitation. Pericardium No pericardial effusion. Aorta Normal size aortic root and proximal ascending aorta. CONCLUSIONS Moderate global LV dysfunction. LVEF estimated at 35 to 40% Moderately increased LV cavity size Inferior inferolateral wall hypokinesia Mild RV dilatation. RVSP estimated at 26 mmHg Moderate LA dilatation No pericardial effusion. Previewed by: Dr Fredo Koenig (Electronically Signed) Final Date: 23 March 2023 18:50
[2023-03-24 11:20] LABS: Chol/HDL Ratio 10.43 Ratio; LDL Cholesterol,Calculated 161.7 mg/dL (0.0-131.0)
[2023-03-24 11:54] LABS: Glucose,Whole Blood 119 mg/dL (70-110)
[2023-03-24] MEDS ORDERED: LACTULOSE 20 GM/30 ML CUP PO PRN (12:29)
[2023-03-24] MEDS ORDERED: MELATONIN 3 MG TABLET PO PRN (12:29)
[2023-03-24] MEDS ORDERED: CALCIUM CARBONATE 500 MG CHEWABLE PO PRN (12:29)
[2023-03-24] MEDS ORDERED: ACETAMINOPHEN TAB 325 MG TAB PO PRN (12:29)
[2023-03-24] MEDS ORDERED: NALOXONE 0.4 MG/ML 1 ML VIAL IV PRN (12:29)
[2023-03-24] MEDS ORDERED: ONDANSETRON 4 MG/2 ML VIAL IVP PRN (12:29)
[2023-03-24] MEDS: ENOXAPARIN 40 MG/0.4 ML SYRINGE SQ SCH (14:57)
--- NOTE | 2023-03-24 15:03 | P.CNNES ---
History of Present Illness Consult date: 03/24/23 Requesting physician: Glenys Benavides Reason for Consult: acute right sided weakness, suspect cva History of Present Illness: This is a 62-year-old gentleman with history of hypertension, diabetes who presented emergency department because of right-sided weakness, right facial droop, slurred speech and difficulty getting his words out. Patient stated that his symptoms and began at the 6 PM this past using (03/22/23) felt his symptoms were minor so he did not get any medical evaluation but the next day he felt his symptoms were worse at present our facility the next day on 03/23/2023. Patient denies any history of stroke, TIA. He is on aspirin at home. He denies any atrial fibrillation or flutter. Denies any drug use. Stated that his father had strokes in his 40s. 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 Some other workup during his hospital visit consisted of: CBC with differential is unremarkable Sodium is 136, glucose is 148, AST ALT are within normal limits Hemoglobin A1c is 8.1 Lipid panel is triglyceride of 394, cholesterol 266, LDL of [address] of the head is reported as no acute intracranial process. Follow-up MRI can be performed if clinically indicated. Minimal periventricular white matter changes predominantly on the right likely chronic white matter ischemic change. I personally reviewed the CT and I feel may be there is questionable subtle hypodensity over the left frontal region is seems may be subcortical frontal to cortical frontal. CTA head and neck: It is reported as normal flow limiting stenosis bilateral carotid bifurcation. Mild calcified atheromatous plaquing is present with areas of narrowing less than 50% the aneurysm origin of the internal carotid artery. Normal [place], right A1 segment slightly hypoplastic. 2D echo: It is reported as moderate global left ventricular function. Left ventricular estimated 35-40%. Moderately increased left ventricular cavity size. Inferior inferior lateral wall hypokinesis. Moderate left atrial dilation. Review of Systems The positive and negative as per HPI. Past Medical History Past Medical History: Coronary Artery Disease (CAD), Chest Pain / Angina, Diabetes Mellitus, Hyperlipidemia, Hypertension, Osteoarthritis (OA) Additional Past Medical History / Comment(s): IDDM type II, possible valve problem per pt. History of Any Multi-Drug Resistant Organisms: None Reported Past Surgical History: Coronary Bypass/CABG, Heart Catheterization With Stent Additional Past Surgical History / Comment(s): C-6 & C-7 FUSION. , HEART CATH WITH STENTS IN RCA AND LEFT CX, 09/2015 CABG-4 VESSEL, egd/colonoscopy, LYMPH NODE REMOVED FROM NECK. Past Anesthesia/Blood Transfusion Reactions: No Reported Reaction Date of Last Stent Placement:: 2006 Past Psychological History: No Psychological Hx Reported Smoking Status: Former smoker - Past Family History Mother Family Medical History: Diabetes Mellitus Additional Family Medical History / Comment(s): MOTHER LIVED TO BE 82 YRS OLD. Father Family Medical History: CVA/TIA Additional Family Medical History / Comment(s): FATHER HAD CVA X2. HE IN A MVA. Medications and Allergies Home Medications Medication Instructions Recorded Confirmed Type Insulin Glargine,Hum.rec.anlog 40 unit SQ HS 09/08/15 03/23/23 History [Lantus Solostar Pen] Omeprazole [PriLOSEC] 20 mg PO AC-BRKFST 09/08/15 03/23/23 History metFORMIN HCL [Glucophage] 1,000 mg PO BID 11/15/16 03/23/23 History Empagliflozin [Jardiance] 12.5 mg PO DAILY 09/15/21 03/23/23 History Cholecalciferol [Vitamin D3 (25 25 mcg PO DAILY 03/23/23 03/23/23 History Mcg = 1000 Iu)] Gabapentin 300 mg PO TID 03/23/23 03/23/23 History Losartan Potassium 100 mg PO DAILY 03/23/23 03/23/23 History Tamsulosin [Flomax] 0.4 mg PO DAILY 03/23/23 03/23/23 History Tirzepatide [Mounjaro] 7.5 mg SQ BRANDON 03/23/23 03/23/23 History amLODIPine [Norvasc] 5 mg PO DAILY 03/23/23 03/23/23 History cloNIDine HCL [Catapres] 0.3 mg PO TID 03/23/23 03/23/23 History Allergies Allergy/AdvReac Type Severity Reaction Status Date / Time Poultry [[place]] Allergy Unknown Rash/Hives Verified 03/23/23 14:12 shellfish derived [Shellfish] Allergy Unknown Rash/Hives Verified 03/23/23 14:12 Physical Examination - Vital Signs Vital Signs: Vital Signs Temp Pulse Resp BP Pulse Ox 03/24/23 12:03 98.2 F 68 17 160/94 95 03/24/23 10:09 71 17 160/89 95 03/24/23 08:40 81 17 183/96 97 03/24/23 07:41 98.2 F 71 17 182/99 95 03/24/23 05:00 74 16 137/68 95 03/24/23 04:00 64 15 140/63 96 03/24/23 03:00 69 14 151/78 96 03/24/23 02:44 16 03/24/23 02:00 64 15 172/109 95 03/24/23 01:00 75 13 178/108 95 03/23/23 23:09 75 175/112 03/23/23 23:08 71 16 175/112 96 03/23/23 21:35 78 16 160/85 96 03/23/23 20:26 75 14 188/103 03/23/23 19:32 73 16 185/103 03/23/23 17:00 66 18 147/86 03/23/23 16:00 75 18 145/82 GENERAL: The patient is lying in bed and is not in acute distress. NEUROLOGICAL: Higher mental function: The patient is awake, alert, oriented to self, place and time. Patient is following commands. Has expressive aphasia. No neglect. Cranial nerves: The pupils are round, equal and reactive to light. Visual mireles are full to confrontation throughout. Extraocular movement has nystagmus looking in every direction (rotatory and horzontal and stated since ). Facial sensation is normal to touch throughout. Has moderate right lower facial weakness. Hearing is normal bilaterally to hand rub. Tongue is midline and moved [id number] without any difficulty. Positive dysarthria. Shoulder shrug is normal bilaterally. Motor: The strength is right upper extremity is 4-4+ while right lower is 5-. Has pronator drift in right upper. Left side is 5/5. Normal tone and bulk. Cerebellum: Normal finger to nose heel to jones bilaterally. Sensation: Sensation is normal to touch throughout. Reflexes (right/left): 2+ throughout Plantars are downgoing bilaterally. Results - Laboratory Findings CBC and BMP: 03/23/23 12:19 03/23/23 12:19 Abnormal Lab Findings: Abnormal Labs 03/23/23 03/23/23 03/24/23 12:19 21:17 06:18 Sodium 136 L Carbon Dioxide 21 L Glucose 148 H POC Glucose (mg/dL) 157 H Hemoglobin A1c 8.1 H Triglycerides Cholesterol LDL Cholesterol, Calc VLDL Cholesterol, Calc HDL Cholesterol 03/24/23 03/24/23 06:18 11:50 Sodium Carbon Dioxide Glucose POC Glucose (mg/dL) 119 H Hemoglobin A1c Triglycerides 394.00 H Cholesterol 266.00 H LDL Cholesterol, Calc 161.7 H VLDL Cholesterol, Calc 78.80 H HDL Cholesterol 25.50 L Assessment and Plan Assessment: This is a 62-year-old gentleman who presented emergency department on 9 03/23/2023 because of the right facial weakness, right-sided weakness, slurring the speech and difficulty speaking since 03/22/[address] of the head and CT angiography of the head and neck is unremarkable Acute ischemic stroke and patient has symptoms of right hemiparesis with right facial droop, dysarthria and expressive aphasia. Ongoing Diabetes mellitus and his hemoglobin A1c is 8.1 Dyslipidemia Ongoing history of hypertension Nystagmus looking in every redirection since Family history of stroke (father) Plan: Patient states that he is on aspirin at home so he was resumed on aspirin and started on 325 daily. In addition I started the patient on Plavix 75 mg daily. I increased the Lipitor from 40 mg to 80 mg daily MRI the brain is ordered and is pending I recommended an event monitor for 30 days. neuro checks Cardiac monitoring PT OCS are consulted Recommend the permissive hypertension for 24 hours and after that slowly go down. Inpatient rehab is consulted and I do agree that the patient will be a great an inpatient rehab candidate. We'll defer the rest of the medical management to the primary team. I recommend better control of his diabetes as well as hypertension as prolonged basis. For DVT prophylaxis the patient is on Lovenox Recommend upon discharge patient to follow-up with a neurologist as an outpatient within 1-2 weeks The plan discussed with the patient. Thank you for the consultation. Time with Patient: Greater than 30
--- NOTE | 2023-03-24 15:37 | P.HPIM ---
History of Present Illness H&P Date: 03/24/23 Chief Complaint: Right-sided weakness This is a pleasant 62-year-old patient who follows with Dr. Burton. Chronic stable medical conditions include CAD with a prior stent, to RCA and left circumflex, four-vessel coronary bypass in 2016. Diabetes, hypertension, hyperlipidemia, osteoarthritis. 2 days ago that is on Tuesday around 5 PM patient noticed that he was feeling wea k on the right side. He noticed right-sided facial droop. He did not do much about it. Yesterday morning patient noticed that his speech is also getting affected., Took an aspirin decided to come to the ER. Patient also having some trouble swallowing. Feels slightly something is getting stuck in the throat. Initial CT scan in the ER was unremarkable. Neurology was consulted. Patient did get aspirin and Lipitor. This morning patient speech remains a bit slurred. Facial asymmetry. Weakness on the right side present. Not improved since initial presentation. Review of systems: GEN.: None EYES: None HEENT: None NECK: None RESPIRATORY: None CARDIOVASCULAR: None GASTROINTESTINAL: None GENITOURINARY: None MUSCULOSKELETAL: None LYMPHATICS: None HEMATOLOGICAL: None PSYCHIATRY: None NEUROLOGICAL: [As above Social history: . 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 Drinks about 3 beers per week. Patient smoked a pack and a half a day for about 19 years stopped in 1996. Physical examination: VITAL SIGNS: 97.3, 76, 18, 170/92, 98% room air upon presentation GENERAL: BMI 27.5, reclining in bed awake. EYES: Pupils equal. Conjunctiva praful l. HEENT: External appearance of nose and ears normal, oral cavity grossly normal. NECK: JVD not raised; masses not palpable. HEART: First and second heart sounds are normal; no edema. LUNGS: Respiratory rate normal; clear to auscultation. ABDOMEN: Soft, nontender, liver spleen not palpable, no masses palpable. PSYCH: Alert and oriented x3; mood and affect praful l. MUSCULOSKELETAL:No Clubbing/cyanosis;muscles-grossly intact NEUROLOGICAL: Facial asymmetry with mouth pulled to the left. Speech is slow. Power in the right arm right leg 3/5... LYMPHATICS: No lymph nodes palpable in the axilla and neck INVESTIGATIONS, reviewed in the clinical context: March 24: LDL 161 March 23, 2023: White count 6.5 hemoglobin 15.2 platelets 227 potassium 4[address] brain [March 23]: Unremarkable CT angiography of head and neck [March 23]: Mild calcified atheromatous plaquing with narrowing less than 50% at the origin of ICA. Chest x-ray film personally reviewed by me-cardiomegaly EKG tracing personally reviewed by me-normal sinus rhythm. Nonspecific T wave changes. 2D echocardiogram: Moderate global LV dysfunction. Inferior inferolateral wall hypokinesia. EF 35 to 40%. Assessment and plan: -Acute stroke likely ischemic, including affecting the right arm right leg right side of the face speech. This is likely in the brainstem after the crossover Aspirin. Lipitor MRI brain. Neurochecks. Neurology consulted. -Essential hypertension Amlodipine 5 mg a day. Catapres 0.3 mg 3 times daily. Losartan -Diabetes mellitus type 2 Jardiance. Lantus 30 units subcu nightly. Mounjaro. Metformin. Follow Accu-Cheks with sliding scale insulin -GERD Prilosec -BPH Flomax -Acute dysarthria secondary to stroke Speech consulted -Acute dysphagia with feeling of fullness in the throat. Speech consulted -CAD with a prior history of statin coronary bypass Continue home medications -Chronic ischemic cardiomyopathy EF 35 to 40% Jardiance. Losartan. -Full code Care was discussed with the patient. Questions answered. Consultation to neurology, speech therapy. PT OT. Past Medical History Past Medical History: Coronary Artery Disease (CAD), Chest Pain / Angina, Diabetes Mellitus, Hyperlipidemia, Hypertension, Osteoarthritis (OA) Additional Past Medical History / Comment(s): IDDM type II, possible valve problem per pt. History of Any Multi-Drug Resistant Organisms: None Reported Past Surgical History: Coronary Bypass/CABG, Heart Catheterization With Stent Additional Past Surgical History / Comment(s): C-6 & C-7 FUSION. , HEART CATH WITH STENTS IN RCA AND LEFT CX, 09/2015 CABG-4 VESSEL, egd/colonoscopy, LYMPH NODE REMOVED FROM NECK. Past Anesthesia/Blood Transfusion Reactions: No Reported Reaction Date of Last Stent Placement:: 2006 Past Psychological History: No Psychological Hx Reported Smoking Status: Former smoker - Past Family History Mother Family Medical History: Diabetes Mellitus Additional Family Medical History / Comment(s): MOTHER LIVED TO BE 82 YRS OLD. Father Family Medical History: CVA/TIA Additional Family Medical History / Comment(s): FATHER HAD CVA X2. HE IN A MVA. Medications and Allergies Home Medications Medication Instructions Recorded Confirmed Type Insulin Glargine,Hum.rec.anlog 40 unit SQ HS 09/08/15 03/23/23 History [Lantus Solostar Pen] Omeprazole [PriLOSEC] 20 mg PO AC-BRKFST 09/08/15 03/23/23 History metFORMIN HCL [Glucophage] 1,000 mg PO BID 11/15/16 03/23/23 History Empagliflozin [Jardiance] 12.5 mg PO DAILY 09/15/21 03/23/23 History Cholecalciferol [Vitamin D3 (25 25 mcg PO DAILY 03/23/23 03/23/23 History Mcg = 1000 Iu)] Gabapentin 300 mg PO TID 03/23/23 03/23/23 History Losartan Potassium 100 mg PO DAILY 03/23/23 03/23/23 History Tamsulosin [Flomax] 0.4 mg PO DAILY 03/23/23 03/23/23 History Tirzepatide [Mounjaro] 7.5 mg SQ BRANDON 03/23/23 03/23/23 History amLODIPine [Norvasc] 5 mg PO DAILY 03/23/23 03/23/23 History cloNIDine HCL [Catapres] 0.3 mg PO TID 03/23/23 03/23/23 History Allergies Allergy/AdvReac Type Severity Reaction Status Date / Time Poultry [[place]] Allergy Unknown Rash/Hives Verified 03/23/23 14:12 shellfish derived [Shellfish] Allergy Unknown Rash/Hives Verified 03/23/23 14:12 Physical Exam Vitals: Vital Signs Temp Pulse Resp BP Pulse Ox 03/24/23 10:09 71 17 160/89 95 03/24/23 08:40 81 17 183/96 97 03/24/23 07:41 98.2 F 71 17 182/99 95 03/24/23 05:00 74 16 137/68 95 03/24/23 04:00 64 15 140/63 96 03/24/23 03:00 69 14 151/78 96 03/24/23 02:44 16 03/24/23 02:00 64 15 172/109 95 03/24/23 01:00 75 13 178/108 95 03/23/23 23:09 75 175/112 03/23/23 23:08 71 16 175/112 96 03/23/23 21:35 78 16 160/85 96 03/23/23 20:26 75 14 188/103 03/23/23 19:32 73 16 185/103 03/23/23 17:00 66 18 147/86 03/23/23 16:00 75 18 145/82 03/23/23 14:06 69 18 147/79 94 L 03/23/23 14:00 71 16 137/88 95 03/23/23 13:00 71 16 151/86 03/23/23 12:08 97.3 F L 76 18 170/92 98 Results CBC & Chem 7: 03/23/23 12:19 03/23/23 12:19 Labs: Abnormal Lab Results - Last 24 Hours (Table) 03/23/23 03/23/23 Range/Units 12:19 21:17 Sodium 136 L (137-145) mmol/L Carbon Dioxide 21 L (22-30) mmol/L Glucose 148 H (74-99) mg/dL POC Glucose (mg/dL) 157 H (70-110) mg/dL
--- NOTE | 2023-03-24 15:55 | MR ---
EXAMINATION TYPE: MR brain wo con DATE OF EXAM: 03/24/2023 2:22 PM CLINICAL INDICATION:Male, 62 years old with history of Neuro deficit, acute, stroke suspected, NEURO DEFICIT, ACUTE, STROKE SUSPECTED COMPARISON: 03/23/2023e review her GI. TECHNIQUE: Multi planar, multi sequence imaging was performed through the brain including: T1, T2, In version recovery, Diffusion weighted imaging, and gradient echo imaging. No gadolinium was given. FINDINGS: High DWI and low ADC signal within the left krystle. Additional area of restricted diffusion w ithin the right basal ganglia and anterior limb of the internal capsule. Mild cerebral atrophy with p roportional dilation of ventricular system. . Scattered nonspecific high T2 signal in the deep white matter bilaterally. Midline structures show no abnormality. The susceptibility weighted images microh emorrhage within the left temporal lobe noted with foci of blooming artifact.. The bone marrow signal is within normal limits. Paranasal sinuses and mastoid air cells: No significant paranasal sinus disease. Visualized orbits: Right aphakia. IMPRESSION: 1. Acute/subacute CVA involving the right basal ganglia/anterior limb of internal capsule as well as the left krystle. 2. Nonspecific white matter changes, likely secondary to small vessel ischemic disease.
[2023-03-24 16:36] LABS: Glucose,Whole Blood 123 mg/dL (70-110)
[2023-03-24] MEDS: CLOPIDOGREL 75 MG TAB PO SCH (17:35)
[2023-03-24 20:41] LABS: Glucose,Whole Blood 109 mg/dL (70-110)
[2023-03-25 06:09] LABS: Glucose,Whole Blood 80 mg/dL (70-110)
[2023-03-25 06:09] LABS: Glucose,Whole Blood 67 mg/dL (70-110)
--- NOTE | 2023-03-25 07:40 | CT ---
EXAMINATION TYPE: CT brain wo con DATE OF EXAM: 03/25/2023 COMPARISON: 3123 HISTORY: Rt sided weakness CT DLP: 1144.[address] of the brain was performed. The ventricles, basal cisterns and sulci overlying the cerebral convexities demonstrate mild enlargem ent. There is no evidence for intracranial hemorrhage or sulcal effacement. There is decreased attenuation about the periventricular white matter and deep white matter of both c erebral hemispheres, compatible with chronic small vessel ischemia. Differential diagnosis does inclu de demyelination. No mass effects are seen.No midline shift. Osseous calvarium is intact. If symptoms persist consider MRI. IMPRESSION: 1. Age related atrophic and chronic small vessel ischemic change without acute intracranial process s een at this time.
--- NOTE | 2023-03-25 09:11 | P.PN ---
Progress Note - Text Progress Note Date: 03/25/23 Dorian was seen for consultation of his left hand pain after a fall. He declined x-rays last night and further evaluation today due to pain is completely resolved. He is able to move his hand and fingers without pain. The consult will be canceled at this time. If pain returns, please consult us again. Thank you.
[2023-03-25] MEDS: ATORVASTATIN 80 MG TAB PO SCH (09:22)
--- NOTE | 2023-03-25 11:25 | P.PN ---
Subjective Progress Note Date: 03/25/23 I am following-up with patient and yesterday he became weaker over the right side and tried to walk on his own to the bathroom and feel but did not hit head or pass out. As result CT head was repeated today since was notified by nurse around late 6ish am. CT head was negative for bleed or acute process. Objective - Vital Signs Vital signs: Vital Signs Temp 97.7 F 03/25/23 04:00 Pulse 89 03/25/23 08:00 Resp 18 03/25/23 08:00 BP 184/95 03/25/23 08:00 Pulse Ox 98 03/25/23 09:02 FiO2 21 03/25/23 09:02 Intake & Output 03/24/23 03/25/23 03/25/23 18:59 06:59 18:59 Intake Total 120 120 240 Balance 120 120 240 Weight 92.079 kg Intake: Oral 120 120 240 Other: Voiding Method Toilet Toilet Toilet # Voids 1 - Exam GENERAL: The patient is sitting in a recliner chair and is not in acute distress. NEUROLOGICAL: Higher mental function: The patient is awake, alert, oriented to self, place and time. Patient is following commands. No aphasia. No neglect. Cranial nerves: The pupils are round, equal and reactive to light. Visual f ields are full to confrontation throughout. Extraocular movement has nystagmus at primary gaze looking straight and in any direction (chronic since ). Facial sensation is normal to touch throughout. Has moderate right lower facial weakness. Hearing is normal bilaterally to hand rub. Tongue is midline and moved [id number] without any difficulty. Positive dysarthria. 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 Right lower extremity is hip is 4-4+, knee is 5- and ankle is 5. There is a pronator drift over the right upper. Left side is 5/5. Mildly to moderate decrease tone of right upper. Normal bulk. Cerebellum: Normal finger to nose heel to jones bilaterally. Sensation: Sensation is normal to touch throughout. Reflexes (right/left): 2+ throughout Plantars are downgoing bilaterally. Some other workup during his hospital visit consisted of: CBC with differential is unremarkable Sodium is 136, glucose is 148, AST ALT are within normal limits Hemoglobin A1c is 8.1 Lipid panel is triglyceride of 394, cholesterol 266, LDL of [address] of the head is reported as no acute intracranial process. Follow-up MRI can be performed if clinically indicated. Minimal periventricular white matter changes predominantly on the right likely chronic white matter ischemic change. I personally reviewed the CT and I feel may be there is questionable subtle hypodensity over the left frontal region is seems may be subcortical frontal to cortical frontal. CTA head and neck: It is reported as normal flow limiting stenosis bilateral carotid bifurcation. Mild calcified atheromatous plaquing is present with areas of narrowing less than 50% the aneurysm origin of the internal carotid artery. Normal [place] of [place], right A1 segment slightly hypoplastic. 2D echo: It is reported as moderate global left ventricular function. Left ventricular estimated 35-40%. Moderately increased left ventricular cavity size. Inferior inferior lateral wall hypokinesis. Moderate left atrial dilation MRI Brain it is reported as acute to subacute ischemic stroke right basal ganglia/anterior limb of internal capsule as well left krystle. Nonspecific white matter changes, likely secondary to small vessel ischemic disease. I personally reviewed MRI and agree with report. Repeat CT head today: Age related atrophic and chronic small vessel ischemic change without acute intracranial process seen at this time. - Labs CBC & Chem 7: 03/23/23 12:19 03/23/23 12:19 Labs: Abnormal Lab Results - Last 24 Hours (Table) 03/24/23 03/24/23 03/24/23 Range/Units 06:18 06:18 11:50 POC Glucose (mg/dL) 119 H (70-110) mg/dL Hemoglobin A1c 8.1 H (<=6.0) % Triglycerides 394.00 H (0.00-149.00) mg/dL Cholesterol 266.00 H (0.00-200.00) mg/dL LDL Cholesterol, Calc 161.7 H (0.0-131.0) mg/dL VLDL Cholesterol, Calc 78.80 H (5.00-40.00) mg/dL HDL Cholesterol 25.50 L (40.00-60.00) mg/dL 03/24/23 03/25/23 Range/Units 16:34 05:45 POC Glucose (mg/dL) 123 H 67 L (70-110) mg/dL Hemoglobin A1c (<=6.0) % Triglycerides (0.00-149.00) mg/dL Cholesterol (0.00-200.00) mg/dL LDL Cholesterol, Calc (0.0-131.0) mg/dL VLDL Cholesterol, Calc (5.00-40.00) mg/dL HDL Cholesterol (40.00-60.00) mg/dL Assessment and Plan Assessment: This is a 62-year-old gentleman who presented emergency department on 9 03/23/2023 because of the right facial weakness, right-sided weakness, slurring the speech and difficulty speaking since 03/22/[address] of the head and CT angiography of the head and neck is unremarkable Acute ischemic stroke (left medial krystle and right internal capsule) and patient has symptoms of right hemiparesis with right facial droop, dysarthria and expressive aphasia---expressive aphasia improved Rule out any embolic process. I feel etiology possible due to chronic small vessel disease due to his risk factors (DM, HTN, Dyslipedemia) Ongoing Diabetes mellitus and his hemoglobin A1c is 8.1 Dyslipidemia Ongoing history of hypertension Nystagmus looking in every redirection since Family history of stroke (father) Plan: Continue ASA 325mg daily and Plavix 75mg daily (at home was only on ASA). To be on dual antiplatelets for 21 days and after 21 days stop ASA but continue Plavix indefintely. Continue Lipitor 80mg daily for secondary stroke prophylaxis and has dsylipidemia. Recommend starting fibrates for hypertriglycerdemia. I consulted cardiology for SALAZAR. I recommended an event monitor for 30 days. neuro checks Cardiac monitoring PT, OT and HISTOPATH TECH are consulted Patient is fall precaution. Patient was instructed that because of his weakness and fall yesterday he cannot get up by himself and needs assistance at this time. Inpatient rehab is consulted and I do agree that the patient will be a great an inpatient rehab candidate. We'll defer the rest of the medical management to the primary team. I recommend better control of his diabetes as well as hypertension as prolonged basis. For DVT prophylaxis the patient is on Lovenox Recommend upon discharge patient to follow-up with a neurologist as an outpatient within 1-2 weeks The plan discussed with the patient and his significant other. Time with Patient: Less than 30
[2023-03-25 11:27] LABS: Glucose,Whole Blood 143 mg/dL (70-110)
--- NOTE | 2023-03-25 11:36 | P.CONS ---
History of Present Illness - Reason for Consult Consult date: 03/25/23 CVA - Chief Complaint right sided weakness - History of Present Illness Mr Dorian Stuart is a 62 y/o right handed male who lives with his in a single story home with 1+1 keri. Prior to admission, he was independent with mobility and ADLs without assistive device. 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 His works. He does have supportive family [facility]. He presented to [facility] on 03/23/23 with complaints of right sided facial droop, slurred speech and right sided weakness. He also reported difficulty with swallowing. Patient was admitted for suspected stroke, initial head CT unremarkable. Neurology consulted, started on ASA, Statin, plavix. MRI brain reviewed, right basal ganglia infarct involving the anterior limb of internal capsule and left krystle. He was evaluated by STRAW BOSS, dysphagia 3 with NTL no straws recommended, Mod assist with bathing, Min assist UB dressing, Max assist LB dressing, pending PT evaluations.PM&R consulted for rehab recommendations. 03/25/23: Patient states he is doing 'ok'. He is still having trouble with speech and processing as well as right sided weakness. He denies headaches, vision changes, CP, SOB, and abdominal pain. Denies issues with bowel and bladder. He has no current complaints of pain. He does feel that his balance is off. He worked with some of therapy and reports he needs some help. Review of Systems reviewed, negative unless stated above in Subjective Past Medical History Past Medical History: Coronary Artery Disease (CAD), Chest Pain / Angina, Diabetes Mellitus, Hyperlipidemia, Hypertension, Osteoarthritis (OA) Additional Past Medical History / Comment(s): IDDM type II, possible valve problem per pt. History of Any Multi-Drug Resistant Organisms: None Reported Past Surgical History: Coronary Bypass/CABG, Heart Catheterization With Stent Additional Past Surgical History / Comment(s): C-6 & C-7 FUSION. , HEART CATH WITH STENTS IN RCA AND LEFT CX, 09/2015 CABG-4 VESSEL, egd/colonoscopy, LYMPH NODE REMOVED FROM NECK. Past Anesthesia/Blood Transfusion Reactions: No Reported Reaction Date of Last Stent Placement:: 2006 Past Psychological History: No Psychological Hx Reported Smoking Status: Former smoker - Past Family History Mother Family Medical History: Diabetes Mellitus Additional Family Medical History / Comment(s): MOTHER LIVED TO BE 82 YRS OLD. Father Family Medical History: CVA/TIA Additional Family Medical History / Comment(s): FATHER HAD CVA X2. HE IN A MVA. Medications and Allergies Home Medications Medication Instructions Recorded Confirmed Type Insulin Glargine,Hum.rec.anlog 40 unit SQ HS 09/08/15 03/23/23 History [Lantus Solostar Pen] Omeprazole [PriLOSEC] 20 mg PO AC-BRKFST 09/08/15 03/23/23 History metFORMIN HCL [Glucophage] 1,000 mg PO BID 11/15/16 03/23/23 History Empagliflozin [Jardiance] 12.5 mg PO DAILY 09/15/21 03/23/23 History Cholecalciferol [Vitamin D3 (25 25 mcg PO DAILY 03/23/23 03/23/23 History Mcg = 1000 Iu)] Gabapentin 300 mg PO TID 03/23/23 03/23/23 History Losartan Potassium 100 mg PO DAILY 03/23/23 03/23/23 History Tamsulosin [Flomax] 0.4 mg PO DAILY 03/23/23 03/23/23 History Tirzepatide [Mounjaro] 7.5 mg SQ BRANDON 03/23/23 03/23/23 History amLODIPine [Norvasc] 5 mg PO DAILY 03/23/23 03/23/23 History cloNIDine HCL [Catapres] 0.3 mg PO TID 03/23/23 03/23/23 History Allergies Allergy/AdvReac Type Severity Reaction Status Date / Time Poultry [[place]] Allergy Unknown Rash/Hives Verified 03/23/23 14:12 shellfish derived [Shellfish] Allergy Unknown Rash/Hives Verified 03/23/23 14:12 Physical Exam Osteopathic Statement: *. No significant issues noted on an osteopathic structural exam other than those noted in the History and Physical/Consult. Vitals: Vital Signs Temp Pulse Pulse Resp BP BP Pulse Ox 03/24/23 14:47 98 F 79 18 182/104 97 03/24/23 12:03 98.2 F 68 17 160/94 95 03/24/23 10:09 71 17 160/89 95 03/24/23 08:40 81 17 183/96 97 03/24/23 07:41 98.2 F 71 17 182/99 95 03/24/23 05:00 74 16 137/68 95 03/24/23 04:00 64 15 140/63 96 03/24/23 03:00 69 14 151/78 96 03/24/23 02:44 16 03/24/23 02:00 64 15 172/109 03/24/23 01:00 75 13 178/108 03/23/23 23:09 75 175/112 03/23/23 23:08 71 16 175/112 96 03/23/23 21:35 78 16 160/85 03/23/23 20:26 75 14 188/103 03/23/23 19:32 73 16 185/103 Intake and Output 03/24/23 03/24/23 03/24/23 06:59 14:59 22:59 Other: Voiding Method Toilet Weight 92.079 kg General: WDWN male, sitting up in chair, alert, NAD, and family members at bedside HEENT: head normocephalic, atraumatic; moist mucous membranes, external ears intact with hearing intact to conversational speech Neck: supple CV: compliance monitor present, no acute distress Lungs: even and non labored respirations on RA Abdomen: soft, NT, ND MSK: full ROM left UE and LEs, Right hemiparesis upper greater than lower MMT: Right hemiparesis- SABD 2/5, EF and EE 3-/5, HG 2/5, Right HF 3-, KE 3-/5, DF 3/5 Left Upper and lower extremity 5/5 Neuro: Alert and oriented x 4, speech is dysarthric with slow processing. Negative Hoffmans, Right babinski flat, left negative CN right facial droop and decreased shoulder shrug on the right. Sensation intact to light touch bilateral UE and LEs Coordination: FTN unable to perform on the right due to hemiparesis, right HTS dysmetria Psych: mood calm, affect flat Extremities: calves supple, non tender, no LE edema Skin: intact where exposed except for IV Results CBC & Chem 7: 03/23/23 12:19 03/23/23 12:19 Labs: Abnormal Lab Results - Last 24 Hours (Table) 03/23/23 03/24/23 03/24/23 Range/Units 21:17 06:18 06:18 POC Glucose (mg/dL) 157 H (70-110) mg/dL Hemoglobin A1c 8.1 H (<=6.0) % Triglycerides 394.00 H (0.00-149.00) mg/dL Cholesterol 266.00 H (0.00-200.00) mg/dL LDL Cholesterol, Calc 161.7 H (0.0-131.0) mg/dL VLDL Cholesterol, Calc 78.80 H (5.00-40.00) mg/dL HDL Cholesterol 25.50 L (40.00-60.00) mg/dL 03/24/23 03/24/23 Range/Units 11:50 16:34 POC Glucose (mg/dL) 119 H 123 H (70-110) mg/dL Hemoglobin A1c (<=6.0) % Triglycerides (0.00-149.00) mg/dL Cholesterol (0.00-200.00) mg/dL LDL Cholesterol, Calc (0.0-131.0) mg/dL VLDL Cholesterol, Calc (5.00-40.00) mg/dL HDL Cholesterol (40.00-60.00) mg/dL Assessment and Plan Assessment: # Right hemiparesis secondary to acute ischemic right basal gangila CVA with extension to anterior limb of internal capsule and left krystle -ASA, Plavix, statin -MRI brain reviewed -PT/OT/STRAW BOSS # Dysarthria -STRAW BOSS # Dysphagia -Dysphagia 3 diet, NTL no straw # Ataxia # History of C6-7 fusion # Pain Management -Tylenol 650 mg Q6 hrs prn, Gabapentin 300 mg TID # DVT Proph - ASA 325 mg, Lovenox # Comorbidities: CAD, Angina, DM, HLD, HTN, OA, BPH, nystagmus-chronic # Your medical dx and management Disposition: Patient was independent prior to admission, motivated and willing to work with therapy. He has good social support and able to tolerate 3 hrs of therapy per day on IPR. Recommending IPR once all therapies and work up have been completed. Discussed with family and patient, will need insurance authorization. Will recheck on 03/28/23. Patient seen and examined in coordination with Dr Hopkins. Thank you for consulting our services.
[2023-03-25] MEDS: BENZOCAINE SPRAY 1 CAN MUCOUS MEM ONE (12:00)
[2023-03-25] MEDS: SODIUM CHLORIDE 0.9% 500 ML 500 ML IV ONE (12:06)
[2023-03-25] MEDS: fentaNYL (PF) 50 MCG/ML 2 ML AMP IVP ONE (12:08)
[2023-03-25] MEDS: MIDAZOLAM 2 MG/2 ML VIAL IVP ONE (12:08)
[2023-03-25] MEDS ORDERED: NICOTINE 21MG/24HR PATCH TRANSDERM SCH (12:45)
--- NOTE | 2023-03-25 13:28 | ECHOT ---
TRANSESOPHAGEAL ECHOCARDIOGRAM INDICATIONS: CVA, rule out cardiac source of thromboembolic phenomenon. PROCEDURE NOTE: After obtaining informed consent, transesophageal echocardiogram is performed in left lateral position using an Omniplane probe. Local and IV sedation were obtained using 2 mg of Versed, 50 mcg of fentanyl, and Xylocaine spray. The patient tolerated the procedure well without any obvious immediate complications. Total sedation time was 10 minutes. FINDINGS: 1. There is no thrombus within the left atrial appendage, left atrium, right atrium, right ventricle, or left ventricle. 2. Interatrial septum there is no evidence of [id number] shunt by color-flow Doppler or [id number]-[id number] shunt by agitated saline contrast study. 3. There is mild mitral and aortic regurgitation noted. Aortic root appears normal. There is a moderate atherosclerotic plaque noted within the aorta. Aortic valve is a 3-leaflet valve, appears thickened without any mass lesions. The left ventricle has normal size shows mild LV systolic dysfunction with an ejection fraction of 45% to 50%. CONCLUSIONS: 1. No intracardiac thrombus. 2. No evidence of shunting across the interatrial septum. 3. Mild LV systolic dysfunction. 4. Moderate atherosclerotic plaque within the aorta. MMODL / IJN: [id number] /
--- NOTE | 2023-03-25 14:04 | P.CRDCN ---
History of Present Illness Consult date: 03/25/23 Reason for Consult (text): SALAZAR, embolic stroke History of present illness: History of present illness: This is a 62-year-old male patient of Dr. Yasir Bowles with PMH of coronary artery disease status post bypass surgery, hypertension, dyslipidemia, diabetes. We have been asked to evaluate the patient for SALAZAR, embolic stroke. Patient denied to the hospital due to feeling weak on the right side with a right-sided facial droop. Echocardiogram reveals EF 35-40%, moderately increased LV cavity size. Inferior inferolateral wall hypokinesia. Mild RV dilatation. RVSP 22 mm d 26 mmHg. Moderate LA dilatation. No pericardial effusion. Home cardiac medications: amlodipine 5 mg daily, clonidine 0.3 mg tid, losartan 100 mg daily. Review Of Systems: At the time of my exam: CONSTITUTIONAL: Denies fever or chills. CARDIOVASCULAR: Denies chest pain. Denies orthopnea. Denies PND. Denies palpitations RESPIRATORY: Denies shortness of breath. GASTROINTESTINAL: Denies abdominal pain. Denies nausea or vomiting. HEMATOLOGIC: Denies bleeding disorders. GENITOURINARY: Denies any blood in urine. SKIN: Denies pruitis. Denies rash. Physical examination: Gen: This is a 62-year-old male in no acute distress VS: reviewed LUNGS: Clear to auscultation. No wheezes or rhonchi. No intercostal retractions. HEART: Regular rate and rhythm. No murmur. EXTREMITIES: No pedal edema. Assessment: Acute ischemic stroke History of coronary artery disease with previous bypass graft Hypertension Dyslipidemia Diabetes Plan: Patient will be scheduled for SALAZAR today with Dr. Yasir Bowles Thank you kindly for this consultation. Nurse practitioner note has been reviewed, I agree with documented findings and plan of care. Patient was seen and examined. Past Medical History Past Medical History: Coronary Artery Disease (CAD), Chest Pain / Angina, Diabetes Mellitus, Hyperlipidemia, Hypertension, Osteoarthritis (OA) Additional Past Medical History / Comment(s): IDDM type II, possible valve problem per pt. History of Any Multi-Drug Resistant Organisms: None Reported Past Surgical History: Coronary Bypass/CABG, Heart Catheterization With Stent Additional Past Surgical History / Comment(s): C-6 & C-7 FUSION. , HEART CATH WITH STENTS IN RCA AND LEFT CX, 09/2015 CABG-4 VESSEL, egd/colonoscopy, LYMPH NODE REMOVED FROM NECK. Past Anesthesia/Blood Transfusion Reactions: No Reported Reaction Date of Last Stent Placement:: 2006 Past Psychological History: No Psychological Hx Reported Smoking Status: Former smoker - Past Family History Mother Family Medical History: Diabetes Mellitus Additional Family Medical History / Comment(s): MOTHER LIVED TO BE 82 YRS OLD. Father Family Medical History: CVA/TIA Additional Family Medical History / Comment(s): FATHER HAD CVA X2. HE IN A MVA. Medications and Allergies Home Medications Medication Instructions Recorded Confirmed Type Insulin Glargine,Hum.rec.anlog 40 unit SQ HS 09/08/15 03/23/23 History [Lantus Solostar Pen] Omeprazole [PriLOSEC] 20 mg PO AC-BRKFST 09/08/15 03/23/23 History metFORMIN HCL [Glucophage] 1,000 mg PO BID 11/15/16 03/23/23 History Empagliflozin [Jardiance] 12.5 mg PO DAILY 09/15/21 03/23/23 History Cholecalciferol [Vitamin D3 (25 25 mcg PO DAILY 03/23/23 03/23/23 History Mcg = 1000 Iu)] Gabapentin 300 mg PO TID 03/23/23 03/23/23 History Losartan Potassium 100 mg PO DAILY 03/23/23 03/23/23 History Tamsulosin [Flomax] 0.4 mg PO DAILY 03/23/23 03/23/23 History Tirzepatide [Mounjaro] 7.5 mg SQ BRANDON 03/23/23 03/23/23 History amLODIPine [Norvasc] 5 mg PO DAILY 03/23/23 03/23/23 History cloNIDine HCL [Catapres] 0.3 mg PO TID 03/23/23 03/23/23 History Allergies Allergy/AdvReac Type Severity Reaction Status Date / Time Poultry [[place]] Allergy Unknown Rash/Hives Verified 03/23/23 14:12 shellfish derived [Shellfish] Allergy Unknown Rash/Hives Verified 03/23/23 14:12 Physical Exam Vitals: Vital Signs Temp Pulse Pulse Resp BP BP Pulse Ox 03/25/23 09:02 98 03/25/23 08:00 89 18 184/95 96 03/25/23 04:00 97.7 F 76 18 160/88 98 03/25/23 02:00 87 18 03/25/23 00:00 97.7 F 87 18 170/90 96 03/24/23 22:05 166/98 03/24/23 20:00 97.5 F L 96 18 180/110 98 03/24/23 17:58 144/80 03/24/23 14:47 98 F 79 18 182/104 97 03/24/23 12:03 98.2 F 68 17 160/94 95 FiO2 03/25/23 09:02 21 03/25/23 08:00 03/25/23 04:00 03/25/23 02:00 03/25/23 00:00 03/24/23 22:05 03/24/23 20:00 03/24/23 17:58 03/24/23 14:47 03/24/23 12:03 Intake and Output 03/24/23 03/25/23 03/25/23 22:59 06:59 14:59 Intake Total 120 120 240 Balance 120 120 240 Intake: Oral 120 120 240 Other: Voiding Method Toilet Toilet Toilet # Voids 1 1 Weight 92.079 kg Results 03/23/23 12:19 03/23/23 12:19 Lipids 03/24/23 Range/Units 06:18 Triglycerides 394.00 H (0.00-149.00) mg/dL Cholesterol 266.00 H (0.00-200.00) mg/dL HDL Cholesterol 25.50 L (40.00-60.00) mg/dL Cholesterol/HDL Ratio 10.43 Ratio Current Medications Generic Name Dose Route Start Last Admin Trade Name Freq PRN Reason Stop Dose Admin Acetaminophen 650 mg 03/24/23 12:29 Acetaminophen Tab 325 Mg Tab PO Q6HR PRN Mild Pain or Fever > 100.5 Amlodipine Besylate 5 mg 03/24/23 09:00 03/25/23 09:21 Amlodipine 5 Mg Tab PO 5 mg DAILY [facility] Administration Aspirin 325 mg 03/24/23 09:00 03/25/23 09:22 Aspirin 325 Mg Tab PO 325 mg DAILY EL[facility]IA Administration Atorvastatin Calcium 80 mg 03/25/23 09:00 03/25/23 09:22 Atorvastatin 80 Mg Tab PO 80 mg DAILY EL[facility]IA Administration Calcium Carbonate/Glycine 1,000 mg 03/24/23 12:29 Calcium Carbonate 500 Mg Chewable PO Q4HR PRN Dyspepsia Cholecalciferol 25 mcg 03/24/23 09:00 03/25/23 09:21 Cholecalciferol 25 Mcg (1000 Iu) Tablet PO 25 mcg DAILY ELIDIA Administration Clonidine 0.3 mg 03/23/23 22:00 03/25/23 09:23 Clonidine Hcl 0.1 Mg Tab PO 0.3 mg TID [facility]IA Administration Clopidogrel Bisulfate 75 mg 03/24/23 15:30 03/25/23 09:21 Clopidogrel 75 Mg Tab PO 75 mg DAILY [facility]IA Administration Dapagliflozin 5 mg 03/24/23 09:00 03/24/23 10:07 Dapagliflozin Propanediol 5 Mg Tablet PO 5 mg DAILY [facility] Administration Dextrose/Water 25 ml 03/23/23 17:24 Dextrose 50% Syringe 50 Ml IVP PER PROTOCOL PRN Hypoglycemia Protocol Dextrose/Water 50 ml 03/23/23 17:24 Dextrose 50% Syringe 50 Ml IVP PER PROTOCOL PRN Hypoglycemia Protocol Enoxaparin Sodium 40 mg 03/24/23 12:30 03/25/23 09:23 Enoxaparin 40 Mg/0.4 Ml Syringe SQ 40 mg DAILY [facility] Administration Gabapentin 300 mg 03/23/23 22:00 03/25/23 09:23 Gabapentin 300 Mg Cap PO 300 mg TID [facility] Administration Insulin Aspart 0 unit 03/23/23 17:30 03/25/23 06:10 Insulin Aspart (Novolog) 100 Unit/Ml Vial SQ Not Given AC-TID [facility] Protocol Insulin Detemir 30 unit 03/23/23 21:00 03/24/23 20:15 Insulin Detemir (Levemir) 100 Unit/Ml Syr SQ 30 unit HS [facility] Administration Lactulose 20 gm 03/24/23 12:29 Lactulose 20 Gm/30 Ml Cup PO DAILY PRN Constipation Losartan Potassium 100 mg 03/24/23 09:00 03/25/23 09:22 Losartan 50 Mg Tab PO 100 mg DAILY [facility] Administration Melatonin 3 mg 03/24/23 12:29 Melatonin 3 Mg Tablet PO HS PRN Insomnia Metformin HCl 1,000 mg 03/23/23 17:30 03/25/23 09:21 Metformin 500 Mg Tab PO 1,000 mg AC-BID [facility] Administration Naloxone HCl 0.2 mg 03/24/23 12:29 Naloxone 0.4 Mg/Ml 1 Ml Vial IV Q2M PRN Opioid Reversal Ondansetron HCl 4 mg 03/24/23 12:29 Ondansetron 4 Mg/2 Ml Vial IVP Q8HR PRN Nausea And Vomiting Pantoprazole Sodium 40 mg 03/24/23 07:30 03/25/23 06:40 Pantoprazole 40 Mg Tablet PO 40 mg AC-BRKFST [facility] Administration Tamsulosin HCl 0.4 mg 03/24/23 09:00 03/25/23 09:22 Tamsulosin 0.4 Mg Cap.Er.24h PO 0.4 mg DAILY [facility] Administration Intake and Output 03/24/23 03/25/23 03/25/23 22:59 06:59 14:59 Intake Total 120 120 240 Balance 120 120 240 Intake: Oral 120 120 240 Other: Voiding Method Toilet Toilet Toilet # Voids 1 1 Weight 92.079 kg 03/23/23 12:19 03/23/23 12:19
[2023-03-25] MEDS: fentaNYL (PF) 50 MCG/ML 2 ML AMP ONE (14:56)
[2023-03-25] MEDS ORDERED: LIDOCAINE 1% INJ 10MG/ML (20 ML MDV) ONE (17:42)
[2023-03-25] MEDS: IV FLUID CONTINUATION 1,000 ML IV ONE (18:00)
[2023-03-25] MEDS: LIDOCAINE 1% INJ 10MG/ML (20 ML MDV) SQ ONE (18:10)
[2023-03-25 19:52] LABS: Glucose,Whole Blood 214 mg/dL (70-110)
[2023-03-25] MEDS: INSULIN DETEMIR (LEVEMIR) 100 UNIT/ML SYR SQ SCH (20:18)
--- NOTE | 2023-03-25 22:01 | P.PCN ---
Description of Procedure: Procedure: Insertion of Linq loop recorder Indication: Cryptogenic stroke CONSENT:I have discussed the risks, benefits and alternative therapies for the above-mentioned procedure. The patient has indicated understanding and acceptance of the risks and procedures discussed. PROCEDURE: Patient was brought to the catheterization lab in a fasting state. Patient was prepped and draped in the usual fashion. 1% lidocaine was used to anesthetize the area of the left third intercostal space. Using the loop recorder incision device, a small 0.5 cm incision was made in the left 3rd intercostal space. Next the Linq loop recorder was deployed in the 3rd intercostal space subcutaneously using the insertion tool. Thresholds were ch ecked and were excellent at 0.35V. Next the incision was closed using Dermabond. Steristrips were placed over the incision and the procedure was completed. The patient tolerated the procedure well. The patient was transported to the post cath holding area in stable condition. Linq loop recorder serial number: [id number]
[2023-03-26 05:55] LABS: Glucose,Whole Blood 98 mg/dL (70-110)
--- NOTE | 2023-03-26 10:44 | P.PN ---
Progress Note - Text Progress Note Date: 03/25/23 Unable to see the patient. Came to see the patient twice. Gone for testing.
[2023-03-26 11:45] LABS: Glucose,Whole Blood 106 mg/dL (70-110)
--- NOTE | 2023-03-26 13:05 | P.PN ---
Subjective Progress Note Date: 03/26/23 I am following-up with patient and is accompanied with his significant other. He feels weaker today compared to yesterday. He is weaker on the right side. Patient has history of diabetes for at least 20 years and above, states HTN is uncontrolled, has history of CAD s/p CABG and chews tobacco. Objective - Vital Signs Vital signs: Vital Signs Temp 97.8 F 03/26/23 12:00 Pulse 70 03/26/23 12:00 Resp 20 03/26/23 12:00 BP 153/74 03/26/23 12:00 Pulse Ox 96 03/26/23 12:00 FiO2 21 03/25/23 09:02 Intake & Output 03/25/23 03/26/23 03/26/23 18:59 06:59 18:59 Intake Total 390 240 240 Balance 390 240 240 Intake: IV 150 Oral 240 240 240 Other: Voiding Method Toilet Toilet Urinal # Voids 3 1 1 - Exam GENERAL: The patient is sitting in a recliner chair and is not in acute distress. NEUROLOGICAL: Higher mental function: The patient is awake, alert, oriented to self, place and time. Patient is following commands. No aphasia. No neglect. Cranial nerves: The pupils are round, equal and reactive to light. Visual mireles are full to confrontation throughout. Extraocular movement has nystagmus at primary gaze looking straight and in any direction (chronic since ). Facial sensation is normal to touch throughout. Has moderate right lower facial weakness. Hearing is normal bilaterally to hand rub. Tongue is midline and moved [id number] without any difficulty. Positive dysarthria. Motor: The strength is right upper extremity-right arm is 0/5. Right lower extremity is 2-3, ankle is 3. Otherwise Left side is 5/5. Mildly to moderate decrease tone of right upper. Normal bulk. Cerebellum: Normal finger to nose heel to jones bilaterally. Sensation: Sensation is normal to touch throughout. Reflexes (right/left): 2+ throughout Plantars are downgoing bilaterally. Some other workup during his hospital visit consisted of: CBC with differential is unremarkable Sodium is 136, glucose is 148, AST ALT are within normal limits Hemoglobin A1c is 8.1 Lipid panel is triglyceride of 394, cholesterol 266, LDL of [address] of the head is reported as no acute intracranial process. Follow-up MRI can be performed if clinically indicated. Minimal periventricular white matter changes predominantly on the right likely chronic white matter ischemic change. I personally reviewed the CT and I feel may be there is questionable subtle hypodensity over the left frontal region is seems may be subcortical frontal to cortical frontal. CTA head and neck: It is reported as normal flow limiting stenosis bilateral carotid bifurcation. Mild calcified atheromatous plaquing is present with areas of narrowing less than 50% the aneurysm origin of the internal carotid artery. Normal [place], right A1 segment slightly hypoplastic. 2D echo: It is reported as moderate global left ventricular function. Left ventricular estimated 35-40%. Moderately increased left ventricular cavity size. Inferior inferior lateral wall hypokinesis. Moderate left atrial dilation MRI Brain it is reported as acute to subacute ischemic stroke right basal ganglia/anterior limb of internal capsule as well left krystle. Nonspecific white matter changes, likely secondary to small vessel ischemic disease. I personally reviewed MRI and agree with report. Repeat CT head today: Age related atrophic and chronic small vessel ischemic change without acute intracranial process seen at this time. SALAZAR: No intracardiac thrombus. NO evidence of shunting accross the interatrial septum. Moderate atherosclerotic plaque in the aorta. - Labs CBC & Chem 7: 03/23/23 12:19 03/23/23 12:19 Labs: Abnormal Lab Results - Last 24 Hours (Table) 03/25/23 Range/Units 19:50 POC Glucose (mg/dL) 214 H (70-110) mg/dL Assessment and Plan Assessment: This is a 62-year-old gentleman who presented emergency department on 9 03/23/2023 because of the right facial weakness, right-sided weakness, slurring the speech and difficulty speaking since 03/22/[address] of the head and CT angiography of the head and neck is unremarkable Acute ischemic stroke (left medial krystle and right internal capsule) and patient has symptoms of right hemiparesis with right facial droop, dysarthria and expr essive aphasia---expressive aphasia improved but his weakness has worsened. I feel etiology possible due to chronic small vessel disease due to his multiple risk factors (chronic DM, uncontrolled HTN, Dyslipedemia, hx of CAD, tobacco use and family history of stroke). SALAZAR is negative for thrombus of shunt. His worsening of symptoms is likely due to evolution of stroke. Ongoing Diabetes mellitus and his hemoglobin A1c is 8.1 Dyslipidemia Ongoing history of hypertension and is uncontrolled Nystagmus looking in every redirection since Tobacco use (chews) Family history of stroke (father) Plan: Continue ASA 325mg daily and Plavix 75mg daily (at home was only on ASA). To be on dual antiplatelets for 21 days and after 21 days stop ASA but continue Plavix indefintely. Continue Lipitor 80mg daily for secondary stroke prophylaxis and has dsylipidemia. Recommend starting fibrates for hypertriglycerdemia. I ordered STAT repeat MRI Brain because of worsening of his symptoms. Patient has loop recorder placed on 03/25/23 neuro checks Cardiac monitoring PT, OT and SEWING SUPERVISOR are consulted Patient is fall precaution. I notified the nurse if patient has further worsening of his neurological condition then to send him to ICU immediately and repeat CT head. Inpatient rehab is consulted and I do agree that the patient will be a great an inpatient rehab candidate. We'll defer the rest of the medical management to the primary team. I recommend better control of his diabetes as well as hypertension as prolonged basis. Counseled on tobacco cessation. For DVT prophylaxis the patient is on Lovenox Recommend upon discharge patient to follow-up with a neurologist as an outpatient within 1-2 weeks The plan discussed with the patient, his significant other who is at bedside, primary attending and his nurse. Time with Patient: Less than 30
--- NOTE | 2023-03-26 13:30 | MR ---
EXAMINATION TYPE: MR brain wo con DATE OF EXAM: 03/26/2023 1:12 PM COMPARISON: 03/24/20 at HISTORY: Worsening stroke FINDINGS: The ventricles, basal cisterns and sulci overlying the cerebral convexities are mildly enlarged. There is evidence of mild periventricular white matter ischemic demyelination. Remote deep white matter insults are also noted. Acute CVA left krystle slightly larger in size and currently measures 2.1 x 1.4 cm versus prior measurem ent of 2.0 x 1.2 cm. Area of abnormal signal within the right basal ganglia and anterior limb of the internal capsule appears stable. No new areas of abnormal signal are seen at this time. No evidence o f hemorrhagic transformation. There is no evidence for midline shift or mass effect. Acute intracranial hemorrhage or extra-axial collection is not evident. The paranasal sinuses and mastoid air cells are well-aerated. IMPRESSION: Acute CVA left krystle slightly larger in size and currently measures 2.1 x 1.4 cm versus prior measurem ent of 2.0 x 1.2 cm. Area of abnormal signal within the right basal ganglia and anterior limb of the internal capsule appears stable. No new areas of abnormal signal are seen at this time.
--- NOTE | 2023-03-26 14:59 | P.PN ---
Progress Note - Text Progress Note Date: 03/26/23 Chief Complaint: Right-sided weakness This is a pleasant 62-year-old patient who follows with Dr. Burton. Chronic stable medical conditions include CAD with a prior stent, to RCA and left circumflex, four-vessel coronary bypass in 2016. Diabetes, hypertension, hyperlipidemia, osteoarthritis. 2 days ago that is on Tuesday around 5 PM patient noticed that he was feeling weak on the right side. He noticed right-sided facial droop. He did not do much about it. Yesterday morning patient noticed that his speech is also getting affected., Took an aspirin decided to come to the ER. Patient also having some trouble swallowing. Feels slightly something is getting stuck in the throat. Initial CT scan in the ER was unremarkable. Neurology was consulted. Patient did get aspirin and Lipitor. This morning patient speech remains a bit slurred. Facial asymmetry. Weakness on the right side present. Not improved since initial presentation. March 25: Had come to see the patient twice. Has been gone for testing. Patient was not seen March 26: Laying in bed. More weakness on the right side. Not able to move his right arm. Little movement in the right leg. Able to tolerate diet. No choking. Speech slurred. at the bedside. Spoke to Dr. SUAREZ from neurology. Repeat MRI done today.-Area in the left krystle slightly larger in size. Compared to the previous measurement. Patient on aspirin and Plavix. Discussed with at the bedside. Patient had undergone SALAZAR yesterday. No thrombus. No shunt. Blood pressure running on the higher side. Increase amlodipine to 5 mg twice daily from tomorrow. Active Medications Acetaminophen (Acetaminophen Tab 325 Mg Tab) 650 mg PO Q6HR PRN PRN Reason: Mild Pain or Fever > 100.5 Amlodipine Besylate (Amlodipine 5 Mg Tab) 5 mg PO DAILY [facility] Last Admin: 03/26/23 08:27 Dose: 5 mg Aspirin (Aspirin 325 Mg Tab) 325 mg PO DAILY [facility] Last Admin: 03/26/23 08:27 Dose: 325 mg Atorvastatin Calcium (Atorvastatin 80 Mg Tab) 80 mg PO DAILY [facility] Last Admin: 03/26/23 08:27 Dose: 80 mg Calcium Carbonate/Glycine (Calcium Carbonate 500 Mg Chewable) 1,000 mg PO Q4HR PRN PRN Reason: Dyspepsia Cholecalciferol (Cholecalciferol 25 Mcg (1000 Iu) Tablet) 25 mcg PO DAILY [facility] Last Admin: 03/26/23 08:29 Dose: 25 mcg Clonidine (Clonidine Hcl 0.1 Mg Tab) 0.3 mg PO TID [facility] Last Admin: 03/26/23 08:27 Dose: 0.3 mg Clopidogrel Bisulfate (Clopidogrel 75 Mg Tab) 75 mg PO DAILY [facility] Last Admin: 03/26/23 08:27 Dose: 75 mg Dapagliflozin (Dapagliflozin Propanediol 5 Mg Tablet) 5 mg PO DAILY [facility] Last Admin: 03/26/23 08:26 Dose: 5 mg Dextrose/Water (Dextrose 50% Syringe 50 Ml) 25 ml IVP PER PROTOCOL PRN; Protocol PRN Reason: Hypoglycemia Dextrose/Water (Dextrose 50% Syringe 50 Ml) 50 ml IVP PER PROTOCOL PRN; Protocol PRN Reason: Hypoglycemia Enoxaparin Sodium (Enoxaparin 40 Mg/0.4 Ml Syringe) 40 mg SQ DAILY [facility] Last Admin: 03/26/23 08:27 Dose: 40 mg Gabapentin (Gabapentin 300 Mg Cap) 300 mg PO TID [facility] Last Admin: 03/26/23 08:26 Dose: 300 mg Insulin Aspart (Insulin Aspart (Novolog) 100 Unit/Ml Vial) 0 unit SQ AC-TID [facility]; Protocol Last Admin: 03/26/23 12:08 Dose: Not Given Insulin Detemir (Insulin Detemir (Levemir) 100 Unit/Ml Syr) 20 unit SQ HS [facility] Last Admin: 03/25/23 20:18 Dose: 20 unit Lactulose (Lactulose 20 Gm/30 Ml Cup) 20 gm PO DAILY PRN PRN Reason: Constipation Losartan Potassium (Losartan 50 Mg Tab) 100 mg PO DAILY [facility] Last Admin: 03/26/23 08:26 Dose: 100 mg Melatonin (Melatonin 3 Mg Tablet) 3 mg PO HS PRN PRN Reason: Insomnia Metformin HCl (Metformin 500 Mg Tab) 1,000 mg PO AC-BID [facility] Last Admin: 03/26/23 05:56 Dose: 1,000 mg Naloxone HCl (Naloxone 0.4 Mg/Ml 1 Ml Vial) 0.2 mg IV Q2M PRN PRN Reason: Opioid Reversal Ondansetron HCl (Ondansetron 4 Mg/2 Ml Vial) 4 mg IVP Q8HR PRN PRN Reason: Nausea And Vomiting Pantoprazole Sodium (Pantoprazole 40 Mg Tablet) 40 mg PO AC-BRKFST [facility] Last Admin: 03/26/23 05:56 Dose: 40 mg Tamsulosin HCl (Tamsulosin 0.4 Mg Cap.Er.24h) 0.4 mg PO DAILY [facility] Last Admin: 03/26/23 08:27 Dose: 0.4 mg Social history: . 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 Drinks about 3 beers per week. Patient smoked a pack and a half a day for about 19 years stopped in 1996. Physical examination: VITAL SIGNS: 97.8, 70, 20, 153 Vivek 74, 96% room air GENERAL: Reclining in bed awake. EYES: Pupils equal. Conjunctiva praful l. HEENT: External appearance of nose and ears normal, oral cavity grossly normal. NECK: JVD not raised; masses not palpable. HEART: First and second heart sounds are normal; no edema. LUNGS: Respiratory rate normal; clear to auscultation. ABDOMEN: Soft, nontender, liver spleen not palpable, no masses palpable. PSYCH: Alert and oriented x3; mood and affect praful l. MUSCULOSKELETAL:No Clubbing/cyanosis;muscles-grossly intact NEUROLOGICAL: Facial asymmetry with mouth pulled to the left. Speech is slurred. Power in the right arm 0/5. Power in the right leg 1-2/5... INVESTIGATIONS, reviewed in the clinical context: Brain MRI [March 26]: Acute CVA left krystle slightly larger in size currently measures 2.1 x 1.4 cm versus prior measurement of 2 x 1.2 cm. Area of abnormal signal within the right basal ganglia and anterior limb of the internal capsule appears stable. SALAZAR: No intracardiac thrombus. No shunting. Mild LV dysfunction 45-50%. Moderate atherosclerotic plaque within the aorta. Brain MRI [March 24] acute CVA involving the right basal ganglia anterior limb of the internal capsule as well as is the left krystle. March 24: LDL 161 March 23, 2023: White count 6.5 hemoglobin 15.2 platelets 227 potassium 4.[address] brain [March 23]: Unremarkable CT angiography of head and neck [March 23]: Mild calcified atheromatous plaquing with narrowing less than 50% at the origin of ICA. Chest x-ray film personally reviewed by me-cardiomegaly EKG tracing personally reviewed by me-normal sinus rhythm. Nonspecific T wave changes. 2D echocardiogram: Moderate global LV dysfunction. Inferior inferolateral wall hypokinesia. EF 35 to 40%. Assessment and plan: -Acute stroke likely ischemic, including affecting the right arm right leg right side of the face speech. Clinically worsening. MRI brain: Acute CVA left krystle slightly larger in size currently measures 2.1 x 1.4 cm versus prior measurement of 2 x 1.2 cm. Area of abnormal signal within the right basal ganglia and anterior limb of the internal capsule appears stable. Aspirin. Plavix Lipitor SALAZAR: Negative for thrombus and shunt. Neurology following -Essential hypertension Increase amlodipine 5 mg twice daily. Catapres 0.3 mg 3 times daily. Losartan 100 mg a day -Diabetes mellitus type 2 Jardiance. Lantus 30 units subcu nightly. Mounjaro. Metformin. Follow Accu-Cheks with sliding scale insulin -GERD Prilosec -BPH Flomax -Acute dysarthria secondary to stroke Speech consulted -Acute dysphagia with feeling of fullness in the throat. Speech consulted -CAD with a prior history of statin coronary bypass Continue home medications -Chronic ischemic cardiomyopathy EF 35 to 40% Jardiance. Losartan. -Full code Increase amlodipine to 5 mg twice daily from tomorrow. Discussed with Dr. SUAREZ from neurology. Also discussed with the . Past Medical History Past Medical History: Coronary Artery Disease (CAD), Chest Pain / Angina, Diabetes Mellitus, Hyperlipidemia, Hypertension, Osteoarthritis (OA) Additional Past Medical History / Comment(s): IDDM type II, possible valve problem per pt. History of Any Multi-Drug Resistant Organisms: None Reported Past Surgical History: Coronary Bypass/CABG, Heart Catheterization With Stent Additional Past Surgical History / Comment(s): C-6 & C-7 FUSION. , HEART CATH WITH STENTS IN RCA AND LEFT CX, 09/2015 CABG-4 VESSEL, egd/colonoscopy, LYMPH NODE REMOVED FROM NECK. Past Anesthesia/Blood Transfusion Reactions: No Reported Reaction Date of Last Stent Placement:: 2006 Past Psychological History: No Psychological Hx Reported Smoking Status: Former smoker
[2023-03-26 16:26] LABS: Glucose,Whole Blood 144 mg/dL (70-110)
[2023-03-26 20:23] LABS: Glucose,Whole Blood 105 mg/dL (70-110)
[2023-03-26] MEDS ORDERED: amLODIPine 5 MG TAB PO SCH (21:00)
[2023-03-27 05:53] LABS: Glucose,Whole Blood 115 mg/dL (70-110)
[2023-03-27] MEDS: amLODIPine 5 MG TAB PO SCH (08:50)
[2023-03-27 12:04] LABS: Glucose,Whole Blood 175 mg/dL (70-110)
--- NOTE | 2023-03-27 12:32 | P.PN ---
Subjective Progress Note Date: 03/27/23 I am following-up with patient and is accompanied with his significant other. She states he is minimally weaker today but otherwise about the same. Patient denies any worsening of swallowing. He feels he is stable able to swallow, chewing on the left side. Objective - Vital Signs Vital signs: Vital Signs Temp 97.9 F 03/27/23 11:33 Pulse 83 03/27/23 11:33 Resp 20 03/27/23 11:33 BP 136/81 03/27/23 11:33 Pulse Ox 96 03/27/23 11:33 FiO2 21 03/25/23 09:02 Intake & Output 03/26/23 03/27/23 03/27/23 18:59 06:59 18:59 Intake Total 240 240 240 Balance 240 240 240 Intake: Intake, IV Titration 0 Amount ceFAZolin 2 gm In Sodium 0 Chloride 0.9% 50 ml @ 100 mls/hr IVPB ONCE ONE Rx# :[id number] Oral 240 240 240 Other: Voiding Method Bedside Commode Urinal # Voids 1 1 - Exam GENERAL: The patient is sitting on side of bed and is not in acute distress. NEUROLOGICAL: Higher mental function: The patient is awake, alert, oriented to self, place and time. Patient is following commands. No aphasia. No neglect. Cranial nerves: The pupils are round, equal and reactive to light. Visual fi elds are full to confrontation throughout. Extraocular movement has nystagmus at primary gaze looking straight and in any direction (chronic since ). Facial sensation is normal to touch throughout. Has moderate right lower facial weakness. Hearing is normal bilaterally to hand rub. Tongue is midline and moved [id number] without any difficulty. Positive dysarthria. Motor: The strength is right upper extremity-right arm is 0/5. Right lower extremity is 2,. Otherwise Left side is 5/5. Mildly to moderate decrease tone of right upper. Normal bulk. Cerebellum: Normal finger to nose heel to jones bilaterally. Sensation: Sensation is normal to touch throughout. Reflexes (right/left): 2+ throughout Plantars are downgoing bilaterally. Some other workup during his hospital visit consisted of: CBC with differential is unremarkable Sodium is 136, glucose is 148, AST ALT are within normal limits Hemoglobin A1c is 8.1 Lipid panel is triglyceride of 394, cholesterol 266, LDL of [address] of the head is reported as no acute intracranial process. Follow-up MRI can be performed if clinically indicated. Minimal periventricular white matter changes predominantly on the right likely chronic white matter ischemic change. I personally reviewed the CT and I feel may be there is questionable subtle hypodensity over the left frontal region is seems may be subcortical frontal to cortical frontal. CTA head and neck: It is reported as normal flow limiting stenosis bilateral carotid bifurcation. Mild calcified atheromatous plaquing is present with areas of narrowing less than 50% the aneurysm origin of the internal carotid artery. Normal [place], right A1 segment slightly hypoplastic. 2D echo: It is reported as moderate global left ventricular function. Left ventricular estimated 35-40%. Moderately increased left ventricular cavity si ze. Inferior inferior lateral wall hypokinesis. Moderate left atrial dilation MRI Brain it is reported as acute to subacute ischemic stroke right basal ganglia/anterior limb of internal capsule as well left krystle. Nonspecific white matter changes, likely secondary to small vessel ischemic disease. I personally reviewed MRI and agree with report. Repeat CT head today: Age related atrophic and chronic small vessel ischemic change without acute intracranial process seen at this time. SALAZAR: No intracardiac thrombus. NO evidence of shunting accross the interatrial septum. Moderate atherosclerotic plaque in the aorta. Repeat MRI Brain: Acute CVA left krystle slightly larger in size and currently m easures 2.11.4 cm versus prior measurement of 52.0 x 1.2 cm. Area of abnormal signal within the right basal ganglia and anterior limb of internal capsule appears stable. No new area of abnormal signal are seen at this time. - Labs CBC & Chem 7: 03/23/23 12:19 03/23/23 12:19 Labs: Abnormal Lab Results - Last 24 Hours (Table) 03/26/23 03/27/23 03/27/23 Range/Units 16:24 05:49 12:01 POC Glucose (mg/dL) 144 H 115 H 175 H (70-110) mg/dL Assessment and Plan Assessment: This is a 62-year-old gentleman who presented emergency department on 9 03/23/2023 because of the right facial weakness, right-sided weakness, slurring the speech and difficulty speaking since 03/22/[address] of the head and CT angiography of the head and neck is unremarkable Acute ischemic stroke (left medial krystle and right internal capsule) and patient has symptoms of right hemiparesis with right facial droop, dysarthria and expressive aphasia---expressive aphasia improved but his weakness has worsened. I feel etiology possible due to chronic small vessel disease due to his multiple risk factors (chronic DM, uncontrolled HTN, Dyslipedemia, hx of CAD, tobacco use and family history of stroke). SALAZAR is negative for thrombus of shunt. His worsening of symptoms is due to evolution of stroke in which the size of left krystle is larger. Ongoing Diabetes mellitus and his hemoglobin A1c is 8.1 Dyslipidemia Ongoing history of hypertension and is uncontrolled Nystagmus looking in every redirection since Tobacco use (chews) Family history of stroke (father) Plan: Continue ASA 325mg daily and Plavix 75mg daily (at home was only on ASA). To be on dual antiplatelets for 21 days and after 21 days stop ASA but continue Plavix indefintely. Continue Lipitor 80mg daily for secondary stroke prophylaxis and has dsylipidemia. Recommend starting fibrates for hypertriglycerdemia. Patient has loop recorder placed on 03/25/23 neuro checks Cardiac monitoring PT, OT and SIDE DOOR WORKER are consulted Patient is fall precaution. If patient has further worsening of his neurological condition then to send him to ICU immediately and repeat CT head. Inpatient rehab is consulted and I do agree that the patient will be a great an inpatient rehab candidate. For now lets hold transferring to inpatient rehab until patient has no further worsening weakness or any new neurological issues. We'll defer the rest of the medical management to the primary team. I recommend better control of his diabetes as well as hypertension as prolonged basis. Counseled on tobacco cessation. For DVT prophylaxis the patient is on Lovenox Recommend upon discharge patient to follow-up with a neurologist as an outpatient within 1-2 weeks The plan discussed with the patient, his significant other who is at bedside. Dr. Batista will resume neurology service tomorrow A.M. Time with Patient: Less than 30
--- NOTE | 2023-03-27 14:35 | P.PN ---
Progress Note - Text Progress Note Date: 03/27/23 Chief Complaint: Right-sided weakness This is a pleasant 62-year-old patient who follows with Dr. Burton. Chronic stable medical conditions include CAD with a prior stent, to RCA and left circumflex, four-vessel coronary bypass in 2016. Diabetes, hypertension, hyperlipidemia, osteoarthritis. 2 days ago that is on Tuesday around 5 PM patient noticed that he was feeling weak on the right side. He noticed right-sided facial droop. He did not do much about it. Yesterday morning patient noticed that his speech is also getting affected., Took an aspirin decided to come to the ER. Patient also having some trouble swallowing. Feels slightly something is getting stuck in the throat. Initial CT scan in the ER was unremarkable. Neurology was consulted. Patient did get aspirin and Lipitor. This morning patient speech remains a bit slurred. Facial asymmetry. Weakness on the right side present. Not improved since initial presentation. March 25: Had come to see the patient twice. Has been gone for testing. Patient was not seen March 26: Laying in bed. More weakness on the right side. Not able to move his right arm. Little movement in the right leg. Able to tolerate diet. No choking. Speech slurred. at the bedside. Spoke to Dr. SUARZE from neurology. Repeat MRI done today.-Area in the left krystle slightly larger in size. Compared to the previous measurement. Patient on aspirin and Plavix. Discussed with at the bedside. Patient had undergone SALAZAR yesterday. No thrombus. No shunt. Blood pressure running on the higher side. Increase amlodipine to 5 mg twice daily from tomorrow. March 27: Amlodipine increased this morning. Blood pressure better. Remains flaccid in the right arm. Very little movement in the right leg. Speech unchanged. Discussed with the patient and . No worsening of neurological symptoms from yesterday. Neurology following. Continue aspirin and Plavix. Active Medications Acetaminophen (Acetaminophen Tab 325 Mg Tab) 650 mg PO Q6HR PRN PRN Reason: Mild Pain or Fever > 100.5 Amlodipine Besylate (Amlodipine 5 Mg Tab) 5 mg PO BID [facility] Last Admin: 03/27/23 08:50 Dose: 5 mg Aspirin (Aspirin 325 Mg Tab) 325 mg PO DAILY [facility] Last Admin: 03/27/23 08:50 Dose: 325 mg Atorvastatin Calcium (Atorvastatin 80 Mg Tab) 80 mg PO DAILY [facility] Last Admin: 03/27/23 08:50 Dose: 80 mg Calcium Carbonate/Glycine (Calcium Carbonate 500 Mg Chewable) 1,000 mg PO Q4HR PRN PRN Reason: Dyspepsia Cholecalciferol (Cholecalciferol 25 Mcg (1000 Iu) Tablet) 25 mcg PO DAILY [facility] Last Admin: 03/27/23 08:50 Dose: 25 mcg Clonidine (Clonidine Hcl 0.1 Mg Tab) 0.3 mg PO TID [facility] Last Admin: 03/27/23 08:50 Dose: 0.3 mg Clopidogrel Bisulfate (Clopidogrel 75 Mg Tab) 75 mg PO DAILY [facility] Last Admin: 03/27/23 08:50 Dose: 75 mg Dapagliflozin (Dapagliflozin Propanediol 5 Mg Tablet) 5 mg PO DAILY [facility] Last Admin: 03/27/23 08:50 Dose: 5 mg Dextrose/Water (Dextrose 50% Syringe 50 Ml) 25 ml IVP PER PROTOCOL PRN; Protocol PRN Reason: Hypoglycemia Dextrose/Water (Dextrose 50% Syringe 50 Ml) 50 ml IVP PER PROTOCOL PRN; Protocol PRN Reason: Hypoglycemia Enoxaparin Sodium (Enoxaparin 40 Mg/0.4 Ml Syringe) 40 mg SQ DAILY [facility] Last Admin: 03/27/23 08:51 Dose: 40 mg Gabapentin (Gabapentin 300 Mg Cap) 300 mg PO TID [facility] Last Admin: 03/27/23 08:50 Dose: 300 mg Insulin Aspart (Insulin Aspart (Novolog) 100 Unit/Ml Vial) 0 unit SQ AC-TID [facility]; Protocol Last Admin: 03/27/23 12:10 Dose: 3 unit Insulin Detemir (Insulin Detemir (Levemir) 100 Unit/Ml Syr) 20 unit SQ [facility] Last Admin: 03/26/23 20:38 Dose: Not Given Lactulose (Lactulose 20 Gm/30 Ml Cup) 20 gm PO DAILY PRN PRN Reason: Constipation Losartan Potassium (Losartan 50 Mg Tab) 100 mg PO DAILY [facility] Last Admin: 03/27/23 08:50 Dose: 100 mg Melatonin (Melatonin 3 Mg Tablet) 3 mg PO HS PRN PRN Reason: Insomnia Metformin HCl (Metformin 500 Mg Tab) 1,000 mg PO AC-BID [facility] Last Admin: 03/27/23 06:37 Dose: 1,000 mg Naloxone HCl (Naloxone 0.4 Mg/Ml 1 Ml Vial) 0.2 mg IV Q2M PRN PRN Reason: Opioid Reversal Ondansetron HCl (Ondansetron 4 Mg/2 Ml Vial) 4 mg IVP Q8HR PRN PRN Reason: Nausea And Vomiting Pantoprazole Sodium (Pantoprazole 40 Mg Tablet) 40 mg PO AC-BRKFST [facility] Last Admin: 03/27/23 06:37 Dose: 40 mg Tamsulosin HCl (Tamsulosin 0.4 Mg Cap.Er.24h) 0.4 mg PO DAILY [facility] Last Admin: 03/27/23 08:50 Dose: 0.4 mg Social history: . 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 Drinks about 3 beers per week. Patient smoked a pack and a half a day for about 19 years stopped in 1996. Physical examination: VITAL SIGNS: 97.9, 83, 20, 136/81, 96% room air GENERAL: Reclining in bed awake. EYES: Pupils equal. Conjunctiva praful l. HEENT: External appearance of nose and ears normal, oral cavity grossly normal. NECK: JVD not raised; masses not palpable. HEART: First and second heart sounds are normal; no edema. LUNGS: Respiratory rate normal; clear to auscultation. ABDOMEN: Soft, nontender, liver spleen not palpable, no masses palpable. PSYCH: Alert and oriented x3; mood and affect praful l. MUSCULOSKELETAL:No Clubbing/cyanosis;muscles-grossly intact NEUROLOGICAL: Facial asymmetry with mouth pulled to the left. Speech is slurred. Power in the right arm 0/5. Power in the right leg 1-2/5... INVESTIGATIONS, reviewed in the clinical context: Brain MRI [March 26]: Acute CVA left krystle slightly larger in size currently measures 2.1 x 1.4 cm versus prior measurement of 2 x 1.2 cm. Area of abnormal signal within the right basal ganglia and anterior limb of the internal capsule appears stable. SALAZAR: No intracardiac thrombus. No shunting. Mild LV dysfunction 45-50%. Moderate atherosclerotic plaque within the aorta. Brain MRI [March 24] acute CVA involving the right basal ganglia anterior limb of the internal capsule as well as is the left krystle. March 24: LDL 161 March 23, 2023: White count 6.5 hemoglobin 15.2 platelets 227 potassium 4.[address] brain [March 23]: Unremarkable CT angiography of head and neck [March 23]: Mild calcified atheromatous plaquing with narrowing less than 50% at the origin of ICA. Chest x-ray film personally reviewed by me-cardiomegaly EKG tracing personally reviewed by me-normal sinus rhythm. Nonspecific T wave changes. 2D echocardiogram: Moderate global LV dysfunction. Inferior inferolateral wall hypokinesia. EF 35 to 40%. Assessment and plan: -Acute stroke likely ischemic, including affecting the right arm right leg right side of the face speech.: No improvement MRI brain: Acute CVA left krystle slightly larger in size currently measures 2.1 x 1.4 cm versus prior measurement of 2 x 1.2 cm. Area of abnormal signal within the right basal ganglia and anterior limb of the internal capsule appears stable. Aspirin. Plavix Lipitor SALAZAR: Negative for thrombus and shunt. Neurology following -Essential hypertension: Better controlled Amlodipine 5 mg twice daily. Catapres 0.3 mg 3 times daily. Losartan 100 mg a day -Diabetes mellitus type 2 Jardiance. Lantus 30 units subcu nightly. Mounjaro. Metformin. Follow Accu-Cheks with sliding scale insulin -GERD Prilosec -BPH Flomax -Acute dysarthria secondary to stroke Speech consulted -Acute dysphagia with feeling of fullness in the throat. Speech consulted -CAD with a prior history of statin coronary bypass Continue home medications -Chronic ischemic cardiomyopathy EF 35 to 40% Jardiance. Losartan. -Full code Discussed with patient at the bedside. No change from yesterday. Follow- up with neurology. Past Medical History Past Medical History: Coronary Artery Disease (CAD), Chest Pain / Angina, Diabetes Mellitus, Hyperlipidemia, Hypertension, Osteoarthritis (OA) Additional Past Medical History / Comment(s): IDDM type II, possible valve problem per pt. History of Any Multi-Drug Resistant Organisms: None Reported Past Surgical History: Coronary Bypass/CABG, Heart Catheterization With Stent Additional Past Surgical History / Comment(s): C-6 & C-7 FUSION. , HEART CATH WITH STENTS IN RCA AND LEFT CX, 09/2015 CABG-4 VESSEL, egd/colonoscopy, LYMPH NODE REMOVED FROM NECK. Past Anesthesia/Blood Transfusion Reactions: No Reported Reaction Date of Last Stent Placement:: 2006 Past Psychological History: No Psychological Hx Reported Smoking Status: Former smoker
[2023-03-27 16:44] LABS: Glucose,Whole Blood 128 mg/dL (70-110)
[2023-03-27] MEDS ORDERED: NON FORMULARY DRUG (Tirzepatide [Mounjaro] 7.5 MG/0.5 ML Pen.Injctr) SQ SCH (17:23)
[2023-03-27 19:51] LABS: Glucose,Whole Blood 124 mg/dL (70-110)
[2023-03-28 06:10] LABS: Glucose,Whole Blood 129 mg/dL (70-110)
[2023-03-28 11:38] LABS: Glucose,Whole Blood 125 mg/dL (70-110)
[2023-03-28 12:43] VITALS: BMI 27.5
--- NOTE | 2023-03-28 15:14 | P.PN ---
Progress Note - Text Progress Note Date: 03/28/23 Chief Complaint: Right-sided weakness This is a pleasant 62-year-old patient who follows with Dr. Burton. Chronic stable medical conditions include CAD with a prior stent, to RCA and left circumflex, four-vessel coronary bypass in 2016. Diabetes, hypertension, hyperlipidemia, osteoarthritis. 2 days ago that is on Tuesday around 5 PM patient noticed that he was feeling weak on the right side. He noticed right-sided facial droop. He did not do much about it. Yesterday morning patient noticed that his speech is also getting affected., Took an aspirin decided to come to the ER. Patient also having some trouble swallowing. Feels slightly something is getting stuck in the throat. Initial CT scan in the ER was unremarkable. Neurology was consulted. Patient did get aspirin and Lipitor. This morning patient speech remains a bit slurred. Facial asymmetry. Weakness on the right side present. Not improved since initial presentation. March 25: Had come to see the patient twice. Has been gone for testing. Patient was not seen March 26: Laying in bed. More weakness on the right side. Not able to move his right arm. Little movement in the right leg. Able to tolerate diet. No choking. Speech slurred. at the bedside. Spoke to Dr. SUAREZ from neurology. Repeat MRI done today.-Area in the left krystle slightly larger in size. Compared to the previous measurement. Patient on aspirin and Plavix. Discussed with at the bedside. Patient had undergone SALAZAR yesterday. No thrombus. No shunt. Blood pressure running on the higher side. Increase amlodipine to 5 mg twice daily from tomorrow. March 27: Amlodipine increased this morning. Blood pressure better. Remains flaccid in the right arm. Very little movement in the right leg. Speech unchanged. Discussed with the patient and . No worsening of neurological symptoms from yesterday. Neurology following. Continue aspirin and Plavix. March 28: Some fluctuation blood pressure. Overall better. No change in neurostatus. Right arm remains flaccid. Speech unchanged. at the bedside. Will watch for 24 hours then plan for rehab if okay with neurology. Active Medications Acetaminophen (Acetaminophen Tab 325 Mg Tab) 650 mg PO Q6HR PRN PRN Reason: Mild Pain or Fever > 100.5 Amlodipine Besylate (Amlodipine 5 Mg Tab) 5 mg PO BID [facility] Last Admin: 03/28/23 09:02 Dose: 5 mg Aspirin (Aspirin 325 Mg Tab) 325 mg PO DAILY [facility] Last Admin: 03/28/23 09:02 Dose: 325 mg Atorvastatin Calcium (Atorvastatin 80 Mg Tab) 80 mg PO DAILY [facility] Last Admin: 03/28/23 09:02 Dose: 80 mg Calcium Carbonate/Glycine (Calcium Carbonate 500 Mg Chewable) 1,000 mg PO Q4HR PRN PRN Reason: Dyspepsia Cholecalciferol (Cholecalciferol 25 Mcg (1000 Iu) Tablet) 25 mcg PO DAILY [facility] Last Admin: 03/28/23 09:02 Dose: 25 mcg Clonidine (Clonidine Hcl 0.1 Mg Tab) 0.3 mg PO TID [facility] Last Admin: 03/28/23 09:02 Dose: 0.3 mg Clopidogrel Bisulfate (Clopidogrel 75 Mg Tab) 75 mg PO DAILY [facility] Last Admin: 03/28/23 09:02 Dose: 75 mg Dapagliflozin (Dapagliflozin Propanediol 5 Mg Tablet) 5 mg PO DAILY [facility] Last Admin: 03/28/23 09:02 Dose: 5 mg Dextrose/Water (Dextrose 50% Syringe 50 Ml) 25 ml IVP PER PROTOCOL PRN; Protocol PRN Reason: Hypoglycemia Dextrose/Water (Dextrose 50% Syringe 50 Ml) 50 ml IVP PER PROTOCOL PRN; Protocol PRN Reason: Hypoglycemia Enoxaparin Sodium (Enoxaparin 40 Mg/0.4 Ml Syringe) 40 mg SQ DAILY [facility] Last Admin: 03/28/23 09:02 Dose: 40 mg Gabapentin (Gabapentin 300 Mg Cap) 300 mg PO TID [facility] Last Admin: 03/28/23 09:02 Dose: 300 mg Insulin Aspart (Insulin Aspart (Novolog) 100 Unit/Ml Vial) 0 unit SQ AC-TID [facility]; Protocol Last Admin: 03/28/23 11:51 Dose: Not Given Insulin Detemir (Insulin Detemir (Levemir) 100 Unit/Ml Syr) 20 unit SQ HS [facility] Last Admin: 03/27/23 20:04 Dose: Not Given Lactulose (Lactulose 20 Gm/30 Ml Cup) 20 gm PO DAILY PRN PRN Reason: Constipation Losartan Potassium (Losartan 50 Mg Tab) 100 mg PO DAILY [facility] Last Admin: 03/28/23 09:01 Dose: 100 mg Melatonin (Melatonin 3 Mg Tablet) 3 mg PO HS PRN PRN Reason: Insomnia Metformin HCl (Metformin 500 Mg Tab) 1,000 mg PO AC-BID [facility] Last Admin: 03/28/23 06:31 Dose: 1,000 mg Naloxone HCl (Naloxone 0.4 Mg/Ml 1 Ml Vial) 0.2 mg IV Q2M PRN PRN Reason: Opioid Reversal Ondansetron HCl (Ondansetron 4 Mg/2 Ml Vial) 4 mg IVP Q8HR PRN PRN Reason: Nausea And Vomiting Pantoprazole Sodium (Pantoprazole 40 Mg Tablet) 40 mg PO AC-BRKFST [facility] Last Admin: 03/28/23 06:31 Dose: 40 mg Tamsulosin HCl (Tamsulosin 0.4 Mg Cap.Er.24h) 0.4 mg PO DAILY [facility] Last Admin: 03/28/23 09:02 Dose: 0.4 mg Social history: . 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 Drinks about 3 beers per week. Patient smoked a pack and a half a day for about 19 years stopped in 1996. Physical examination: VITAL SIGNS: 97.1, 90, 16, 148 x 80, 98% room air GENERAL: Reclining in chair EYES: Pupils equal. Conjunctiva praful l. HEENT: External appearance of nose and ears normal, oral cavity grossly normal. NECK: JVD not raised; masses not palpable. HEART: First and second heart sounds are normal; no edema. LUNGS: Respiratory rate normal; clear to auscultation. ABDOMEN: Soft, nontender, liver spleen not palpable, no masses palpable. PSYCH: Alert and oriented x3; mood and affect praful l. MUSCULOSKELETAL:No Clubbing/cyanosis;muscles-grossly intact NEUROLOGICAL: Facial asymmetry with mouth pulled to the left. Speech is sl urred. Power in the right arm 0/5. Power in the right leg -2/5... INVESTIGATIONS, reviewed in the clinical context: Brain MRI [March 26]: Acute CVA left krsytle slightly larger in size currently m easures 2.1 x 1.4 cm versus prior measurement of 2 x 1.2 cm. Area of abnormal signal within the right basal ganglia and anterior limb of the internal capsule appears stable. SALAZAR: No intracardiac thrombus. No shunting. Mild LV dysfunction 45-50%. Moderate atherosclerotic plaque within the aorta. Brain MRI [March 24] acute CVA involving the right basal ganglia anterior limb of the internal capsule as well as is the left krystle. March 24: LDL 161 March 23, 2023: White count 6.5 hemoglobin 15.2 platelets 227 potassium 4.[address] brain [March 23]: Unremarkable CT angiography of head and neck [March 23]: Mild calcified atheromatous plaquing with narrowing less than 50% at the origin of ICA. Chest x-ray film personally reviewed by me-cardiomegaly EKG tracing personally reviewed by me-normal sinus rhythm. Nonspecific T wave changes. 2D echocardiogram: Moderate global LV dysfunction. Inferior inferolateral wall hypokinesia. EF 35 to 40%. Assessment and plan: -Acute stroke likely ischemic, including affecting the right arm right leg right side of the face speech.: No improvement MRI brain: Acute CVA left krystle slightly larger in size currently measures 2.1 x 1.4 cm versus prior measurement of 2 x 1.2 cm. Area of abnormal signal within the right basal ganglia and anterior limb of the internal capsule appears stable. Aspirin. Plavix Lipitor SALAZAR: Negative for thrombus and shunt. Neurology following -Essential hypertension: Better controlled Amlodipine 5 mg twice daily. Catapres 0.3 mg 3 times daily. Losartan 100 mg a day -Diabetes mellitus type 2 Jardiance. Lantus 30 units subcu nightly. Mounjaro. Metformin. Follow Accu-Cheks with sliding scale insulin -GERD Prilosec -BPH Flomax -Acute dysarthria secondary to stroke Speech consulted -Acute dysphagia with feeling of fullness in the throat. Speech consulted -CAD with a prior history of statin coronary bypass Continue home medications -Chronic ischemic cardiomyopathy EF 35 to 40% Jardiance. Losartan. -Full code Discussed with patient and . If okay with neurology plan for discharge tomorrow. Past Medical History Past Medical History: Coronary Artery Disease (CAD), Chest Pain / Angina, Diabetes Mellitus, Hyperlipidemia, Hypertension, Osteoarthritis (OA) Additional Past Medical History / Comment(s): IDDM type II, possible valve problem per pt. History of Any Multi-Drug Resistant Organisms: None Reported Past Surgical History: Coronary Bypass/CABG, Heart Catheterization With Stent Additional Past Surgical History / Comment(s): C-6 & C-7 FUSION. , HEART CATH WITH STENTS IN RCA AND LEFT CX, 09/2015 CABG-4 VESSEL, egd/colonoscopy, LYMPH NODE REMOVED FROM NECK. Past Anesthesia/Blood Transfusion Reactions: No Reported Reaction Date of Last Stent Placement:: 2006 Past Psychological History: No Psychological Hx Reported Smoking Status: Former smoker
[2023-03-28] MEDS: PRAZOSIN 1 MG CAP PO SCH (16:06)
[2023-03-28 16:32] VITALS: RESP 18
[2023-03-28 16:32] LABS: Glucose,Whole Blood 102 mg/dL (70-110)
[2023-03-28 19:49] LABS: Glucose,Whole Blood 156 mg/dL (70-110)
[2023-03-29 06:04] LABS: Glucose,Whole Blood 113 mg/dL (70-110)
--- NOTE | 2023-03-29 08:30 | P.PN ---
Subjective Progress Note Date: 03/28/23 Patient was seen for follow-up. Patient initially seen by Dr. Carlos Comer. Please refer to his note for details. Patient is a 62-year-old male with acute left pontine CVA and also another acute ischemic stroke involving the right internal capsule. The pontine stroke has slightly progressed with worsening of the stroke symptoms due to evolution of the stroke. Patient is currently on aspirin and Plavix. Patient at home was taking aspirin 81 mg daily, taking for 20 years, compliant. He states that he used to be on Plavix 15 years ago but then stopped taking it and was recommended to switch to aspirin. Patient has history of bypass surgery 7 years ago. Patient has hypertension, denies tobacco use. Patient at present states that he is not feeling any better. No headache. Patient continues to have slurred speech and right hemiplegia. It involves the face arm and leg. He states the left side of the body is fine. Patient states that sometimes he feels the paralyzed leg is moving all jerking. Patient has undergone barium swallow and is recommended chopped diet. Patient states he has history of diabetes for 24 years. Some other workup during his hospital visit consisted of: CBC with differential is unremarkable Sodium is 136, glucose is 148, AST ALT are within normal limits Hemoglobin A1c is 8.1 Lipid panel is triglyceride of 394, cholesterol 266, LDL of [address] of the head is reported as no acute intracranial process. Follow-up MRI can be performed if clinically indicated. Minimal periventricular white matter changes predominantly on the right likely chronic white matter ischemic change. I personally reviewed the CT and I feel may be there is questionable subtle hypodensity over the left frontal region is seems may be subcortical frontal to cortical frontal. CTA head and neck: It is reported as normal flow limiting stenosis bilateral carotid bifurcation. Mild calcified atheromatous plaquing is present with areas of narrowing less than 50% the aneurysm origin of the internal carotid artery. Normal ewiiaapaayp of [place], right A1 segment slightly hypoplastic. 2D echo: It is reported as moderate global left ventricular function. Left ventricular estimated 35-40%. Moderately increased left ventricular cavity size. Inferior inferior lateral wall hypokinesis. Moderate left atrial dilation MRI Brain it is reported as acute to subacute ischemic stroke right basal ganglia/anterior limb of internal capsule as well left krystle. Nonspecific white matter changes, likely secondary to small vessel ischemic disease. I also pe rsonally reviewed MRI and agree with report. Repeat CT head today: Age related atrophic and chronic small vessel ischemic change without acute intracranial process seen at this time. SALAZAR: No intracardiac thrombus. NO evidence of shunting accross the interatrial septum. Moderate atherosclerotic plaque in the aorta. Repeat MRI Brain: Acute CVA left krystle slightly larger in size and currently measures 2.11.4 cm versus prior measurement of 2.0 x 1.2 cm. Area of abnormal signal within the right basal ganglia and anterior limb of internal capsule appears stable. No new area of abnormal signal are seen at this time. Objective - Vital Signs Vital signs: Vital Signs Temp 97.6 F 03/28/23 16:00 Pulse 101 H 03/28/23 16:00 Resp 18 03/28/23 16:00 BP 170/84 03/28/23 16:00 Pulse Ox 99 03/28/23 16:00 FiO2 21 03/25/23 09:02 Intake & Output 03/28/23 03/28/23 03/29/23 06:59 18:59 06:59 Intake Total 118 Balance 118 Weight 92.079 kg Intake: Oral 118 Other: Voiding Method Bedside Commode # Voids 2 # Bowel Movements 1 - Exam Patient's mental status is normal. Speech is moderately dysarthric but no aphasia. Patient can name and repeat very well. Comprehension is perfectly intact. On cranial nerve examination pupils are equal, round and reactive to light. Visual mireles are full with no neglect. Extraocular muscles are intact but he has positive nystagmus and end gaze bilaterally. Patient has right facial weak ness, central type. Tongue protrudes to the midline. On muscle strength testing, patient has no movement, completely flaccid right arm and right leg. The left side is normal in the arm and leg. Sensory to touch is equal with no neglect. No ataxia for [id number] testing on the left side. - Labs CBC & Chem 7: 03/23/23 12:19 03/23/23 12:19 Labs: Abnormal Lab Results - Last 24 Hours (Table) 03/28/23 03/28/23 03/28/23 Range/Units 06:08 11:37 19:28 POC Glucose (mg/dL) 129 H 125 H 156 H (70-110) mg/dL Assessment and Plan Assessment: This is a 62-year-old gentleman who presented emergency department on 03/23/2023 because of the right facial weakness, right-sided weakness, slurring the speech and difficulty speaking since 03/22/[address] of the head and CT angiography of the head and neck is unremarkable Acute ischemic stroke (left medial krystle and right internal capsule) and patient has symptoms of right hemiparesis with right facial droop, dysarthria and expressive aphasia---expressive aphasia improved but his weakness has worsened. I feel etiology possible due to chronic small vessel disease due to his multiple risk factors (chronic poorly controlled DM, uncontrolled HTN, Dyslipedemia, hx of CAD, tobacco use and family history of stroke). SALAZAR is negative for thrombus or shunt. His worsening of symptoms is due to evolution of stroke in which the size of left krystle is larger. Ongoing Diabetes mellitus and his hemoglobin A1c is 8.1 Dyslipidemia Ongoing history of hypertension and is uncontrolled Nystagmus looking in every redirection since Tobacco use (chews) Family history of stroke (father) Plan: Continue ASA 325mg daily and Plavix 75mg daily (at home was only on ASA). To be on dual antiplatelets for 21 days and after 21 days stop ASA but continue Plavix indefintely. Continue Lipitor 80mg daily for secondary stroke prophylaxis and has dsylipidemia. Recommend starting fibrates for hypertriglycerdemia. Patient has loop recorder placed on 03/25/23 neuro checks Cardiac monitoring PT, OT and PATTERN ILLUSTRATOR are consulted Patient is fall precaution. Recommend gradual optimization of control of blood pressure. Inpatient rehab is consulted and I do agree that the patient will be a great an inpatient rehab candidate. We'll defer the rest of the medical management to the primary team. I recommend better control of his diabetes as well as hypertension as prolonged basis. Counseled on tobacco cessation. For DVT prophylaxis the patient is on Lovenox Recommend upon discharge patient to follow-up with a neurologist as an outpatient within 1-2 weeks Neurologically clear for transfer to inpatient rehab. Discussed with primary physician.
[2023-03-29 10:23] LABS: Glucose,Whole Blood 128 mg/dL (70-110)
[2023-03-29 10:41] LABS: Glucose,Whole Blood 136 mg/dL (70-110)
[2023-03-29 11:05] VITALS: BP 121/66; PULSE 73; TEMP 97.9
[2023-03-29 11:06] LABS: Basophils % (A) 1 %; Eosinophils # (A) 0.1 k/uL (0-0.7); Eosinophils % (A) 1 %; HCT 45.6 % (39.0-53.0); HGB 15.3 gm/dL (13.0-17.5); Lymphocytes # (A) 0.8 k/uL (1.0-4.8); Lymphocytes % (A) 12 %; MCH 29.2 pg (25.0-35.0); MCHC 33.6 g/dL (31.0-37.0); MCV 86.8 fL (80.0-100.0); Mean Platelet Volume 7.6; Monocytes # (A) 0.4 k/uL (0-1.0); Monocytes % (A) 6 %; Neutrophils # (A) 5.4 k/uL (1.3-7.7); Neutrophils % (A) 79 %; Platelet Count 247 k/uL (150-450); RBC 5.26 m/uL (4.30-5.90); RDW 14.2 % (11.5-15.5); WBC 6.8 k/uL (3.8-10.6)
[2023-03-29 11:18] LABS: African American GFR (CKD) >90 (>60 ml/min/1.73 sqM); Anion Gap 17 mmol/L; Blood Urea Nitrogen 24 mg/dL (9-20); Calcium 9.5 mg/dL (8.4-10.2); Carbon Dioxide 13 mmol/L (22-30); Chloride 104 mmol/L (98-107); Glucose 154 mg/dL (74-99); Non-African American GFR(CKD) 85 (>60 ml/min/1.73 sqM); Sodium 134 mmol/L (137-145)
[2023-03-29 11:39] LABS: Glucose,Whole Blood 136 mg/dL (70-110)
--- NOTE | 2023-03-29 12:31 | P.DS ---
Providers Date of admission: 03/23/23 15:32 Expected date of discharge: 03/29/23 Attending physician: Jose Sandhu Consults: 03/23/23 15:30 Consult Physician Urgent Consulting Provider: Carlos Suarez Consult Reason/Comments: acute right sided weakness, suspected cva Do you want consulting provider notified?: Yes 03/24/23 12:32 Consult Physician Routine Consulting Provider: Jared Reyes Consult Reason/Comments: ipr Do you want consulting provider notified?: Yes 03/24/23 18:44 Consult Physician Routine Consulting Provider: Espinoza Morales Consult Reason/Comments: ivana. embolic stroke Do you want consulting provider notified?: Yes Primary care physician: [facility] Course: Chief Complaint: Right-sided weakness This is a pleasant 62-year-old patient who follows with Dr. Burton. Chronic stable medical conditions include CAD with a prior stent, to RCA and left circumflex, four-vessel coronary bypass in 2016. Diabetes, hypertension, hyperlipidemia, osteoarthritis. 2 days ago that is on Tuesday around 5 PM patient noticed that he was feeling weak on the right side. He noticed right-sided facial droop. He did not do m uch about it. Yesterday morning patient noticed that his speech is also getting affected., Took an aspirin decided to come to the ER. Patient also having some trouble swallowing. Feels slightly something is getting stuck in the throat. Initial CT scan in the ER was unremarkable. Neurology was consulted. Patient did get aspirin and Lipitor. This morning patient speech remains a bit slurred. Facial asymmetry. Weakness on the right side present. Not improved since initial presentation. March 25: Had come to see the patient twice. Has been gone for testing. Patient was not seen March 26: Laying in bed. More weakness on the right side. Not able to move his right arm. Little movement in the right leg. Able to tolerate diet. No choking. Speech slurred. at the bedside. Spoke to Dr. SUAREZ from neurology. Repeat MRI done today.-Area in the left krystle slightly larger in size. Compared to the previous measurement. Patient on aspirin and Plavix. Discussed with at the bedside. Patient had undergone IVANA yesterday. No thrombus. No shunt. Blood pressure running on the higher side. Increase amlodipine to 5 mg twice daily from tomorrow. March 27: Amlodipine increased this morning. Blood pressure better. Remains flaccid in the right arm. Very little movement in the right leg. Speech unchanged. Discussed with the patient and . No worsening of neurological symptoms from yesterday. Neurology following. Continue aspirin and Plavix. March 28: Some fluctuation blood pressure. Overall better. No change in neurostatus. Right arm remains flaccid. Speech unchanged. at the bedside. Will watch for 24 hours then plan for rehab if okay with neurology. March 29: Prazosin 1 mg 3 times daily was added yesterday. Being very careful about the blood pressure range. Blood pressure is better. Some dizziness. As expected from running high blood pressures. Spoke to the patient and the . Right side remains weak. Patient been cleared by neurology. Will have the patient follow-up with neurology outpatient. Will be going to inpatient rehab today. Social history: . 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 Drinks about 3 beers per week. Patient smoked a pack and a half a day for about 19 years stopped in 1996. Physical examination: VITAL SIGNS: 97.9, 73, 18, 121/66, 97% room air GENERAL: Reclining in chair EYES: Pupils equal. Conjunctiva praful l. HEENT: External appearance of nose and ears normal, oral cavity grossly normal. NECK: JVD not raised; masses not palpable. HEART: First and second heart sounds are normal; no edema. LUNGS: Respiratory rate normal; clear to auscultation. ABDOMEN: Soft, nontender, liver spleen not palpable, no masses palpable. PSYCH: Alert and oriented x3; mood and affect praful l. MUSCULOSKELETAL:No Clubbing/cyanosis;muscles-grossly intact NEUROLOGICAL: Facial asymmetry with mouth pulled to the left. Speech is slurred. Power in the right arm 0/5. Power in the right leg -2/5... INVESTIGATIONS, reviewed in the clinical context: March 29: White count 6.8 hemoglobin 15.3 potassium 4 creatinine 0.95 Brain MRI [March 26]: Acute CVA left krystle slightly larger in size currently measures 2.1 x 1.4 cm versus prior measurement of 2 x 1.2 cm. Area of abnormal signal within the right basal ganglia and anterior limb of the internal capsule appears stable. IVANA: No intracardiac thrombus. No shunting. Mild LV dysfunction 45-50%. Moderate atherosclerotic plaque within the aorta. Brain MRI [March 24] acute CVA involving the right basal ganglia anterior limb of the internal capsule as well as is the left krystle. March 24: LDL 161 March 23, 2023: White count 6.5 hemoglobin 15.2 platelets 227 [address] brain [March 23]: Unremarkable CT angiography of head and neck [March 23]: Mild calcified atheromatous plaquing with narrowing less than 50% at the origin of ICA. Chest x-ray film personally reviewed by me-cardiomegaly EKG tracing personally reviewed by me-normal sinus rhythm. Nonspecific T wave changes. 2D echocardiogram: Moderate global LV dysfunction. Inferior inferolateral wall hypokinesia. EF 35 to 40%. Assessment and plan: -Acute stroke likely ischemic, including affecting the right arm right leg right side of the face speech.: No improvement MRI brain: Acute CVA left krystle slightly larger in size currently measures 2.1 x 1.4 cm versus prior measurement of 2 x 1.2 cm. Area of abnormal signal within the right basal ganglia and anterior limb of the internal capsule appears stable. Aspirin. Plavix Lipitor IVANA: Negative for thrombus and shunt. Neurology following -Essential hypertension: Amlodipine 5 mg twice daily. Catapres 0.3 mg 3 times daily. Losartan 100 mg a day. Prazosin 1 mg 3 times daily -Diabetes mellitus type 2 Jardiance. Lantus 30 units subcu nightly. Mounjaro. Metformin. Follow Accu-Cheks with sliding scale insulin -GERD Prilosec -BPH Flomax -Acute dysarthria secondary to stroke Speech therapy following -Acute dysphagia with feeling of fullness in the throat. Diet: Dysphagia 3 chopped with nectar thick liquids. -CAD with a prior history of statin coronary bypass Continue home medications -Chronic ischemic cardiomyopathy EF 35 to 40% Jardiance. Losartan. -Full code Disposition: Inpatient rehab at [facility]. Past Medical History Past Medical History: Coronary Artery Disease (CAD), Chest Pain / Angina, Diabetes Mellitus, Hyperlipidemia, Hypertension, Osteoarthritis (OA) Additional Past Medical History / Comment(s): IDDM type II, possible valve problem per pt. History of Any Multi-Drug Resistant Organisms: None Reported Past Surgical History: Coronary Bypass/CABG, Heart Catheterization With Stent Additional Past Surgical History / Comment(s): C-6 & C-7 FUSION. , HEART CATH WITH STENTS IN RCA AND LEFT CX, 09/2015 CABG-4 VESSEL, egd/colonoscopy, LYMPH NODE REMOVED FROM NECK. Past Anesthesia/Blood Transfusion Reactions: No Reported Reaction Date of Last Stent Placement:: 2006 Past Psychological History: No Psychological Hx Reported Smoking Status: Former smoker Patient Condition at Discharge: Serious Plan - Discharge Summary Discharge Rx Participant: No New Discharge Prescriptions: New Aspirin 325 mg PO DAILY tab Melatonin 3 mg PO HS PRN tab PRN Reason: Insomnia amLODIPine [Norvasc] 5 mg PO BID tab INSULIN ASPART (NovoLOG) [NovoLOG (formulary)] 0 unit SQ AC-TID each Clopidogrel [Plavix] 75 mg PO DAILY tab Insulin Detemir (Levemir) [Levemir] 20 unit SQ HS each Atorvastatin [Lipitor] 80 mg PO DAILY tab Prazosin [Minipress] 1 mg PO TID cap Acetaminophen Tab [Tylenol] 650 mg PO Q6HR PRN tab PRN Reason: Mild Pain Or Fever > 100.5 Continue Omeprazole [PriLOSEC] 20 mg PO AC-BRKFST metFORMIN HCL [Glucophage] 1,000 mg PO BID Empagliflozin [Jardiance] 12.5 mg PO DAILY Gabapentin 300 mg PO TID #9 cap cloNIDine HCL [Catapres] 0.3 mg PO TID Tamsulosin [Flomax] 0.4 mg PO DAILY Losartan Potassium 100 mg PO DAILY Tirzepatide [Mounjaro] 7.5 mg SQ BRANDON Cholecalciferol [Vitamin D3 (25 Mcg = 1000 Iu)] 25 mcg PO DAILY Discontinued Insulin Glargine,Hum.rec.anlog [Lantus Solostar Pen] 40 unit SQ HS amLODIPine [Norvasc] 5 mg PO DAILY Discharge Medication List Omeprazole [PriLOSEC] 20 mg PO AC-BRKFST 09/08/15 [History] metFORMIN HCL [Glucophage] 1,000 mg PO BID 11/15/16 [History] Empagliflozin [Jardiance] 12.5 mg PO DAILY 09/15/21 [History] Cholecalciferol [Vitamin D3 (25 Mcg = 1000 Iu)] 25 mcg PO DAILY 03/23/23 [History] Losartan Potassium 100 mg PO DAILY 03/23/23 [History] Tamsulosin [Flomax] 0.4 mg PO DAILY 03/23/23 [History] Tirzepatide [Mounjaro] 7.5 mg SQ BRANDON 03/23/23 [History] cloNIDine HCL [Catapres] 0.3 mg PO TID 03/23/23 [History] Acetaminophen Tab [Tylenol] 650 mg PO Q6HR PRN tab 03/29/23 [Rx] Aspirin 325 mg PO DAILY tab 03/29/23 [Rx] Atorvastatin [Lipitor] 80 mg PO DAILY tab 03/29/23 [Rx] Clopidogrel [Plavix] 75 mg PO DAILY tab 03/29/23 [Rx] Gabapentin 300 mg PO TID #9 cap 03/29/23 [Rx] INSULIN ASPART (NovoLOG) [NovoLOG (formulary)] 0 unit SQ AC-TID each 03/29/23 [Rx] Insulin Detemir (Levemir) [Levemir] 20 unit SQ HS each 03/29/23 [Rx] Melatonin 3 mg PO HS PRN tab 03/29/23 [Rx] Prazosin [Minipress] 1 mg PO TID cap 03/29/23 [Rx] amLODIPine [Norvasc] 5 mg PO BID tab 03/29/23 [Rx] Follow up Appointment(s)/Referral(s): Ko Burton DO [Primary Care Provider] - 1-2 days
--- NOTE | 2023-04-04 12:27 | P.PN ---
Subjective Progress Note Date: 03/29/23 03/29/2023: Patient was seen for a follow-up patient's family was also present today. Apparently about 20 minutes after taking shower, patient had an episode while he was sitting in the chair, but he felt weird, diaphoretic. There was a drop in his pulse and blood pressure was lower than normal. A-team was called. When they arrive patient was awake look pale and weak, diaphoretic, leaning to the left side. Right side was flaccid from CVA. Patient was able to straighten up in the chair, stated, just felt weak". Patient color returned to normal and skin was warm and dry. Blood sugar was normal 140. About 10-15 minutes later, he was again sitting in the chair when he lost color, was diaphoretic, felt it coming on. His blood pressure was normal, heart rate dropped from 90 to 40s. Recommended to inform primary physician about heart rate. Patient already has loop recorder in place. 03/28/2023: Patient was seen for follow-up. Patient initially seen by Dr. Carlos Comer. Please refer to his note for details. Patient is a 62-year-old male with acute left pontine CVA and also another acute ischemic stroke involving the right internal capsule. The pontine stroke has slightly progressed with worsening of the stroke symptoms due to evolution of the stroke. Patient is currently on aspirin and Plavix. Patient at home was taking aspirin 81 mg daily, taking for 20 years, compliant. He states that he used to be on Plavix 15 years ago but then stopped taking it and was recommended to switch to aspirin. Patient has history of bypass surgery 7 years ago. Patient has hypertension, denies tobacco use. Patient at present states that he is not feeling any better. No headache. Patient continues to have slurred speech and right hemiplegia. It involves the face arm and leg. He states the left side of the body is fine. Patient states that sometimes he feels the paralyzed leg is moving all jerking. Patient has undergone barium swallow and is recommended chopped diet. Patient states he has history of diabetes for 24 years. Some other workup during his hospital visit consisted of: CBC with differential is unremarkable Sodium is 136, glucose is 148, AST ALT are within normal limits Hemoglobin A1c is 8.1 Lipid panel is triglyceride of 394, cholesterol 266, LDL of [address] of the head is reported as no acute intracranial process. Follow-up MRI can be performed if clinically indicated. Minimal periventricular white matter changes predominantly on the right likely chronic white matter ischemic change. I personally reviewed the CT and I feel may be there is questionable subtle hypodensity over the left frontal region is seems may be subcortical frontal to cortical frontal. CTA head and neck: It is reported as normal flow limiting stenosis bilateral carotid bifurcation. Mild calcified atheromatous plaquing is present with areas of narrowing less than 50% the aneurysm origin of the internal carotid artery. Normal osage of [place], right A1 segment slightly hypoplastic. 2D echo: It is reported as moderate global left ventricular function. Left ventricular estimated 35-40%. Moderately increased left ventricular cavity size. Inferior inferior lateral wall hypokinesis. Moderate left atrial dilation MRI Brain it is reported as acute to subacute ischemic stroke right basal ganglia/anterior limb of internal capsule as well left krystle. Nonspecific white matter changes, likely secondary to small vessel ischemic disease. I also personally reviewed MRI and agree with report. Repeat CT head today: Age related atrophic and chronic small vessel ischemic change without acute intracranial process seen at this time. SALAZAR: No intracardiac thrombus. NO evidence of shunting accross the interatrial septum. Moderate atherosclerotic plaque in the aorta. Repeat MRI Brain: Acute CVA left krystle slightly larger in size and currently measures 2.11.4 cm versus prior measurement of 2.0 x 1.2 cm. Area of abnormal signal within the right basal ganglia and anterior limb of internal capsule appears stable. No new area of abnormal signal are seen at this time. Objective - Vital Signs Vital signs: Vital Signs Temp 97.9 F 03/29/23 10:44 Pulse 73 03/29/23 10:44 Resp 18 03/29/23 10:44 BP 121/66 03/29/23 10:44 Pulse Ox 97 03/29/23 10:44 FiO2 21 03/25/23 09:02 Intake & Output 03/28/23 03/29/23 03/29/23 18:59 06:59 18:59 Intake Total 118 240 Balance 118 240 Weight 92.079 kg Intake: Oral 118 240 Other: Voiding Method Bedside Commode Bedside Commode # Voids 1 # Bowel Movements 1 - Exam Patient's mental status is normal. Speech is moderately dysarthric but no aphasia. Patient can name and repeat very well. Comprehension is perfectly intact. On cranial nerve examination pupils are equal, round and reactive to light. Visual mireles are full with no neglect. Extraocular muscles are intact but he has positive nystagmus and end gaze bilaterally. The nystagmus is long- standing, not new finding. Patient has right facial weakness, central type. Tongue protrudes to the midline. On muscle strength testing, patient has no movement, completely flaccid right arm and right leg. The left side is normal in the arm and leg. Sensory to touch is equal with no neglect. No ataxia for [id number] testing on the left side. - Labs CBC & Chem 7: 03/29/23 10:28 03/29/23 10:28 Labs: Abnormal Lab Results - Last 24 Hours (Table) 03/28/23 03/29/23 03/29/23 Range/Units 19:28 05:45 10:10 Lymphocytes # (1.0-4.8) k/uL Sodium (137-145) mmol/L Carbon Dioxide (22-30) mmol/L BUN (9-20) mg/dL Glucose (74-99) mg/dL POC Glucose (mg/dL) 156 H 113 H 128 H (70-110) mg/dL 03/29/23 03/29/23 03/29/23 Range/Units 10:24 10:28 10:28 Lymphocytes # 0.8 L (1.0-4.8) k/uL Sodium 134 L (137-145) mmol/L Carbon Dioxide 13 L (22-30) mmol/L BUN 24 H (9-20) mg/dL Glucose 154 H (74-99) mg/dL POC Glucose (mg/dL) 136 H (70-110) mg/dL 03/29/23 Range/Units 11:34 Lymphocytes # (1.0-4.8) k/uL Sodium (137-145) mmol/L Carbon Dioxide (22-30) mmol/L BUN (9-20) mg/dL Glucose (74-99) mg/dL POC Glucose (mg/dL) 136 H (70-110) mg/dL Assessment and Plan Assessment: This is a 62-year-old gentleman who presented emergency department on 03/23/2023 because of the right facial weakness, right-sided weakness, slurring the speech and difficulty speaking since 03/22/[address] of the head and CT angiography of the head and neck is unremarkable Acute ischemic stroke (left medial krystle and right internal capsule) and patient has symptoms of right hemiparesis with right facial droop, dysarthria and expressive aphasia---expressive aphasia improved but his weakness has worsened. I feel etiology possible due to chronic small vessel disease due to his multiple risk factors (chronic poorly controlled DM, uncontrolled HTN, Dyslipedemia, hx of CAD, tobacco use and family history of stroke). SALAZAR is negative for thrombus or shunt. His worsening of symptoms is due to evolution of stroke in which the size of left krystle is larger. Ongoing Diabetes mellitus and his hemoglobin A1c is 8.1 Dyslipidemia Ongoing history of hypertension and is uncontrolled Nystagmus looking in every redirection since Tobacco use (chews) Family history of stroke (father) Plan: Continue ASA 325mg daily and Plavix 75mg daily (at home was only on ASA). To be on dual antiplatelets for 21 days and after 21 days stop ASA but continue Plavix indefintely. Continue Lipitor 80mg daily for secondary stroke prophylaxis and has dsylipidemia. Recommend starting fibrates for hypertriglycerdemia. Patient has loop recorder placed on 03/25/23. Informed the nurse to discuss with cardiology about the near syncopal spell and bradycardia. PT, OT and EMBRYOLOGY PROFESSOR are consulted Patient is fall precaution. Recommend gradual optimization of control of blood pressure. Inpatient rehab is consulted and I do agree that the patient will be a great an inpatient rehab candidate. We'll defer the rest of the medical management to the primary team. I recommend better control of his diabetes as well as hypertension as prolonged basis. Counseled on tobacco cessation. For DVT prophylaxis the patient is on Lovenox Recommend upon discharge patient to follow-up with a neurologist as an outpat ient within 1-2 weeks Neurologically clear for transfer to inpatient rehab. Discussed with primary physician.
== END 2023-03-29 14:27 | DRG 41 ==
LOC: EC 12:01 → 3SCARD 15:32
PROVIDERS: ADMIT Hospitalist; ATTEND Hospitalist
PROC: B24BZZ4 Ultrasonography of Heart with Aorta, Transesophageal (ICD-10-PCS; 2023-03-25)
PROC: 0JH632Z Insertion of Monitoring Device into Chest Subcutaneous Tissue and Fascia, Percutaneous Approach (ICD-10-PCS; principal; 2023-03-25 12:00)
DX: I63.89 Other cerebral infarction (principal); G81.91 Hemiplegia, unspecified affecting right dominant side; R47.1 Dysarthria and anarthria; R29.710 NIHSS score 10; R13.10 Dysphagia, unspecified; M19.90 Unspecified osteoarthritis, unspecified site; R29.810 Facial weakness; N40.0 Benign prostatic hyperplasia without lower urinary tract symptoms; Z98.1 Arthrodesis status; Z82.3 Family history of stroke; I25.10 Atherosclerotic heart disease of native coronary artery without angina pectoris; H55.00 Unspecified nystagmus; I25.5 Ischemic cardiomyopathy; I25.119 Atherosclerotic heart disease of native coronary artery with unspecified angina pectoris; G47.00 Insomnia, unspecified; Z79.02 Long term (current) use of antithrombotics/antiplatelets; Z79.4 Long term (current) use of insulin; Z79.82 Long term (current) use of aspirin; Z79.84 Long term (current) use of oral hypoglycemic drugs; Z79.899 Other long term (current) drug therapy; Z83.3 Family history of diabetes mellitus; Z95.1 Presence of aortocoronary bypass graft; R47.01 Aphasia; Z28.311 Partially vaccinated for COVID-19; Z71.3 Dietary counseling and surveillance; Z91.013 Allergy to seafood
CPT/HCPCS: 33285; 36415; 70450; 70496; 70498; 70551; 71046; 80048; 80053; 80061; 83036; 84484; 85025; 85379; 85610; 85730; 93005; 93306; 93312; 93320; 93325; 94760; 99285